=== PATIENT | female | born 1960 | race Caucasian/White ===

== ENCOUNTER 2022-02-25 11:33 | Observation (INO) | payer BC, OTHER, SELFPAY ==
--- OUTSIDE RECORDS SUMMARY | 2022-02-25 11:43 | XMS REPORT | Continuity of Care Document ---
:1960 Author Organization [facility] t Address [address] [place] [address] Care Team Providers Name Role Phone Ana Vera Primary Care Physician Johnny ARREDONDO, Sendvinod K.H. Attending Clinician JESSICA TURNERHEstelle Attending Clinician Unavailable Doctor Unassigned, [place] Attending Clinician Unavailable DR SHU NATH Attending Clinician Unavailable DR SHU NATH Admitting Clinician Unavailable Payers Payer Name Policy Type Policy Number Effective Date Expiration Date S ource Problems Condition Condition Condition Status Onset Resolution Last Treating Co mments Source Name Details Category Date Date Treatment Clinician Date No known No known Disease Unive rs active active ity of problems problems [facility] Allergies, Adverse Reactions, Alerts Allergy Allergy Status Severity Reaction(s) Onset Inactive Treating Comm ents Source Name Type Date Date Clinician NO KNOWN Drug Active Univers ALLERGIE Class ity of S [facility] Social History Social Habit Start Date Stop Date Quantity Comments Source Exposure to Not sure [facility] SARS-CoV-2 (event) [facility] Tobacco use and 2020-11-29 2020-11-29 Never used [facility] exposure 00:00:00 00:00:00 [facility] Sex Ass[birth year] [facility] 00:00:00 00:00:00 [facility] Smoking Status Start Date Stop Date Source Unknown if ever smoked [facility] Current every day smoker 2020-11-29 00:00:00 Uni versity [facility] Medications Ordered Filled Start Stop Current Ordering Indication Dosage Frequency Signature Comments Components Source Medication Medication Date Date Medication? Clinician (SIG) Name Name LISINOPRIL 2021-1 No 20MG TAB 0-22 00:00: 00 LISINOPRIL 2-1 No 20MG TAB 0-22 00:00: 00 APPLY 2022-0 No SPARINGLY 9-12 TO AFFECTED 00:00: AREA TWICE 00 A DAY APPLY 2022-0 No SPARINGLY 9-12 TO AFFECTED 00:00: AREA TWICE 00 A DAY LISINOPRIL 2-0 No 20 20MG TAB 8 00:00: 00 LISINOPRIL 2-0 No 20 20MG TAB 8 00:00: 00 LISINOPRIL 2-0 No 20 20MG TAB 11-27 00:00: 00 TAKE 10 ML 2022-0 No BY MOUTH 8-11 EVERY 4 TO 00:00: 6 HOURS 00 TAKE 10 ML 2022-0 No BY MOUTH 8-11 EVERY 4 TO 00:00: 6 HOURS 00 TAKE 10 ML 2022-0 No BY MOUTH 8-11 EVERY 4 TO 00:00: 6 HOURS 00 TAKE 10 ML 2022-0 No BY MOUTH 8-11 EVERY 4 TO 00:00: 6 HOURS 00 &lt 2022-0 No 7-11 00:00: 00 Dose 2022-0 No 750 Unknown 7-11 00:00: 00 &lt 2022-0 No 7-11 00:00: 00 Dose 2022-0 No 750 Unknown 7-11 00:00: 00 &lt 2022-0 No 7-11 00:00: 00 Dose 2022-0 No 750 Unknown 7-11 00:00: 00 &lt 2022-0 No 7-11 00:00: 00 Dose 2022-0 No 750 Unknown 7-11 00:00: 00 &lt 2022-0 No 20 7-05 00:00: 00 &lt 2022-0 No 20 7-05 00:00: 00 &lt 2022-0 No 20 7-05 00:00: 00 &lt 2022-0 No 20 7-05 00:00: 00 &lt 2022-0 No 6-29 00:00: 00 Dose 2022-0 No Unknown 6-29 00:00: 00 &lt 2022-0 No 6-29 00:00: 00 Dose 2022-0 No Unknown 6-29 00:00: 00 &lt 2022-0 No 6- 00:00: 00 Dose 2022-0 No Unknown 6- 00:00: 00 &lt 2022-0 No 6- 00:00: 00 Dose 2022-0 No Unknown 6 00:00: 00 &lt 2022-0 No 6- 00:00: 00 &lt 2022-0 No 6- 00:00: 00 Dose 2022-0 No Unknown 6- 00:00: 00 &lt 2022-0 No 6- 00:00: 00 Dose 2022-0 No Unknown 6- 00:00: 00 Dose 2022-0 No Unknown 6- 00:00: 00 &lt 2022-0 No 6- 00:00: 00 Dose 2022-0 No Unknown 6 00:00: 00 &lt 2022-0 No 6- 00:00: 00 &lt 2022-0 No 6-20 00:00: 00 &lt 2022-0 No 6-20 00:00: 00 &lt 2022-0 No 6-20 00:00: 00 &lt 2022-0 No 6-19 00:00: 00 &lt 2022-0 No 6-19 00:00: 00 &lt 2022-0 No 6-19 00:00: 00 &lt 2022-0 No 6-19 00:00: 00 &lt 2022-0 No 6-17 00:00: 00 TAKE 1 2022-0 No TABLET BY 6-17 MOUTH ONCE 00:00: DAILY 00 &lt 2022-0 No 6-17 00:00: 00 TAKE 1 2022-0 No TABLET BY 6-17 MOUTH 00:00: NEEDED 00 ALTERNATE EVERY 3 HOURS WITH TRAMADOL EVERY 6 HOURS FOR 10 DAYS TAKE 1 2022-0 No CAPSULE BY 6-17 MOUTH EVERY 00:00: 12 HOURS 00 FOR 14 DAYS &lt 2022-0 No 6-17 00:00: 00 &lt 2022-0 No 6-17 00:00: 00 &lt 2022-0 No 6-17 00:00: 00 TAKE 1 2022-0 No CAPSULE BY 6-17 MOUTH EVERY 00:00: 12 HOURS 00 FOR 14 DAYS Dose 2022-0 No Unknown 6-17 00:00: 00 TAKE 1 2022-0 No CAPSULE BY 6-17 MOUTH EVERY 00:00: 12 HOURS 00 FOR 14 DAYS Dose 2022-0 No Unknown 6-17 00:00: 00 &lt 2022-0 No 6-17 00:00: 00 &lt 2022-0 No 6-17 00:00: 00 &lt 2022-0 No 6-17 00:00: 00 TAKE 1 2-0 No TABLET BY 6-17 MOUTH ONCE 00:00: DAILY 00 &lt 2022-0 No 6-17 00:00: 00 TAKE 1 2-0 No TABLET BY 6-17 MOUTH 00:00: NEEDED 00 ALTERNATE EVERY 3 HOURS WITH TRAMADOL EVERY 6 HOURS FOR 10 DAYS TAKE 1 2-0 No CAPSULE BY 6-17 MOUTH EVERY 00:00: 12 HOURS 00 FOR 14 DAYS &lt 2022-0 No 6-17 00:00: 00 &lt 2022-0 No 6-17 00:00: 00 &lt 2022-0 No 6-17 00:00: 00 TAKE 1 2-0 No CAPSULE BY 6-17 MOUTH EVERY 00:00: 12 HOURS 00 FOR 14 DAYS Dose 2022-0 No Unknown 6-17 00:00: 00 TAKE 1 2-0 No CAPSULE BY 6-17 MOUTH EVERY 00:00: 12 HOURS 00 FOR 14 DAYS Dose 2022-0 No Unknown 6-17 00:00: 00 &lt 2022-0 No 6-17 00:00: 00 &lt 2022-0 No 6-17 00:00: 00 &lt 2022-0 No 6-17 00:00: 00 TAKE 1 2-0 No TABLET BY 6-17 MOUTH ONCE 00:00: DAILY 00 &lt 2022-0 No 6-17 00:00: 00 TAKE 1 2-0 No TABLET BY 6-17 MOUTH 00:00: NEEDED 00 ALTERNATE EVERY 3 HOURS WITH TRAMADOL EVERY 6 HOURS FOR 10 DAYS TAKE 1 2-0 No CAPSULE BY 6-17 MOUTH EVERY 00:00: 12 HOURS 00 FOR 14 DAYS &lt 2022-0 No 6-17 00:00: 00 &lt 2022-0 No 6-17 00:00: 00 &lt 2022-0 No 6-17 00:00: 00 TAKE 1 2-0 No CAPSULE BY 6-17 MOUTH EVERY 00:00: 12 HOURS 00 FOR 14 DAYS Dose 2022-0 No Unknown 6-17 00:00: 00 TAKE 1 2022-0 No CAPSULE BY 6-17 MOUTH EVERY 00:00: 12 HOURS 00 FOR 14 DAYS Dose 2022-0 No Unknown 6-17 00:00: 00 &lt 2022-0 No 6-17 00:00: 00 &lt 2022-0 No 6-17 00:00: 00 &lt 2022-0 No 6-17 00:00: 00 TAKE 1 2022-0 No TABLET BY 6-17 MOUTH ONCE 00:00: DAILY 00 &lt 2022-0 No 6-17 00:00: 00 TAKE 1 2022-0 No TABLET BY 6-17 MOUTH 00:00: NEEDED 00 ALTERNATE EVERY 3 HOURS WITH TRAMADOL EVERY 6 HOURS FOR 10 DAYS TAKE 1 2-0 No CAPSULE BY 6-17 MOUTH EVERY 00:00: 12 HOURS 00 FOR 14 DAYS &lt 2022-0 No 6-17 00:00: 00 &lt 2022-0 No 6-17 00:00: 00 &lt 2022-0 No 6-17 00:00: 00 TAKE 1 2022-0 No CAPSULE BY 6-17 MOUTH EVERY 00:00: 12 HOURS 00 FOR 14 DAYS Dose 2022-0 No Unknown 6-17 00:00: 00 TAKE 1 2-0 No CAPSULE BY 6-17 MOUTH EVERY 00:00: 12 HOURS 00 FOR 14 DAYS Dose 2022-0 No Unknown 6-17 00:00: 00 &lt 2022-0 No 6-17 00:00: 00 &lt 2022-0 No 6-17 00:00: 00 &lt 2022-0 No 6-03 00:00: 00 TAKE 1 2022-0 No TABLET BY 6-03 MOUTH EVERY 00:00: 8 HOURS 00 NEEDED &lt 2022-0 No 6-03 00:00: 00 &lt 2022-0 No 6-03 00:00: 00 &lt 2022-0 No 6-03 00:00: 00 TAKE 1 2022-0 No TABLET BY 6-03 MOUTH EVERY 00:00: 8 HOURS 00 NEEDED &lt 2022-0 No 6-03 00:00: 00 &lt 2022-0 No 6-03 00:00: 00 &lt 2022-0 No 6-03 00:00: 00 TAKE 1 2022-0 No TABLET BY 6-03 MOUTH EVERY 00:00: 8 HOURS 00 NEEDED &lt 2022-0 No 6-03 00:00: 00 &lt 2022-0 No 6-03 00:00: 00 &lt 2022-0 No 6-03 00:00: 00 TAKE 1 2022-0 No TABLET BY 6-03 MOUTH EVERY 00:00: 8 HOURS 00 NEEDED &lt 2022-0 No 6-03 00:00: 00 &lt 2022-0 No 6-03 00:00: 00 Dose 2022-0 No Unknown 6-02 00:00: 00 &lt 2022-0 No 6-02 00:00: 00 Dose 2022-0 No Unknown 6-02 00:00: 00 &lt 2022-0 No 6-02 00:00: 00 Dose 2022-0 No Unknown 6- 00:00: 00 &lt 2022-0 No 6-02 00:00: 00 Dose 2022-0 No Unknown 6- 00:00: 00 &lt 2022-0 No 6-02 00:00: 00 Dose 2022-0 No Unknown 6- 00:00: 00 Dose 2022-0 No Unknown 6- 00:00: 00 Dose 2022-0 No Unknown 6- 00:00: 00 Dose 2022-0 No Unknown 6- 00:00: 00 nicotine 14 2-0 No 1mg/24 mg/24 hr 5-30 hr daily 00:00: transdermal 00 patch lisinopril 2-0 No 1mg 20 mg 5-30 tablet 00:00: 00 Dose 2022-0 No Unknown 5-30 00:00: 00 Dose 2022-0 No Unknown 5-30 00:00: 00 Dose 2022-0 No Unknown 5-30 00:00: 00 Dose 2022-0 No Unknown 5-30 00:00: 00 Dose 2022-0 No Unknown 5-30 00:00: 00 Dose 2022-0 No Unknown 5-30 00:00: 00 Dose 2022-0 No Unknown 5-30 00:00: 00 Dose 2022-0 No Unknown 5-30 00:00: 00 Dose 2022-0 No Unknown 5-30 00:00: 00 Dose 2022-0 No Unknown 5-30 00:00: 00 nicotine 14 2-0 No 1mg/24 mg/24 hr 5-30 hr daily 00:00: transdermal 00 patch lisinopril 2022-0 No 1mg 20 mg 5-30 tablet 00:00: 00 Dose 2022-0 No Unknown 5-30 00:00: 00 Dose 2022-0 No Unknown 5-30 00:00: 00 Dose 2022-0 No Unknown 5-30 00:00: 00 Dose 2022-0 No Unknown 5-30 00:00: 00 Dose 2022-0 No Unknown 5-30 00:00: 00 Dose 2022-0 No Unknown 5-30 00:00: 00 Dose 2022-0 No Unknown 5-30 00:00: 00 nicotine 14 2-0 No 1mg/24 mg/24 hr 5-30 hr daily 00:00: transdermal 00 patch lisinopril 2-0 No 1mg 20 mg 5-30 tablet 00:00: 00 Dose 2022-0 No Unknown 5-30 00:00: 00 Dose 2022-0 No Unknown 5-30 00:00: 00 Dose 2022-0 No Unknown 5-30 00:00: 00 Dose 2022-0 No Unknown 5-30 00:00: 00 Dose 2-0 No Unknown 5-30 00:00: 00 Dose 2-0 No Unknown 5-30 00:00: 00 Dose 2-0 No Unknown 5-30 00:00: 00 Dose 2022-0 No Unknown 5-30 00:00: 00 Dose 2022-0 No Unknown 5-30 00:00: 00 Dose 2022-0 No Unknown 5-30 00:00: 00 Dose 2022-0 No Unknown 5-30 00:00: 00 Dose 2022-0 No Unknown 5-30 00:00: 00 Dose 2022-0 No Unknown 5-30 00:00: 00 nicotine 14 2-0 No 1mg/24 mg/24 hr 5-30 hr daily 00:00: transdermal 00 patch lisinopril 2022-0 No 1mg 20 mg 5-30 tablet 00:00: 00 Dose 2022-0 No Unknown 5-30 00:00: 00 Dose 2022-0 No Unknown 5-30 00:00: 00 Dose 2022-0 No Unknown 5-30 00:00: 00 Dose 2022-0 No Unknown 5-30 00:00: 00 Dose 2022-0 No Unknown 5-30 00:00: 00 Dose 2022-0 No Unknown 5-30 00:00: 00 Dose 2022-0 No Unknown 5-30 00:00: 00 Dose 2022-0 No Unknown 5- 00:00: 00 Dose 2022-0 No Unknown 5- 00:00: 00 Dose 2022-0 No Unknown 5- 00:00: 00 lisinopril 2022-0 No 1mg 20 mg 5-28 tablet 00:00: 00 Dose 2022-0 No Unknown 5- 00:00: 00 lisinopril 2022-0 No 1mg 20 mg 5-28 tablet 00:00: 00 Dose 2022-0 No Unknown 5- 00:00: 00 lisinopril 2022-0 No 1mg 20 mg 5-28 tablet 00:00: 00 Dose 2022-0 No Unknown 5- 00:00: 00 lisinopril 2022-0 No 1mg 20 mg 5-28 tablet 00:00: 00 Dose 2022-0 No Unknown 5- 00:00: 00 lisinopril 2022-0 No 1mg 20 mg 2-21 tablet 00:00: 00 cyclobenzap 2022-0 No 1mg rine 5 mg 2-21 tablet 00:00: 00 lisinopril 2022-0 No 1mg 20 mg 2-21 tablet 00:00: 00 cyclobenzap 2022-0 No 1mg rine 5 mg 2-21 tablet 00:00: 00 lisinopril 2022-0 No 1mg 20 mg 2-21 tablet 00:00: 00 cyclobenzap 2022-0 No 1mg rine 5 mg 2-21 tablet 00:00: 00 lisinopril 2022-0 No 1mg 20 mg 2-21 tablet 00:00: 00 cyclobenzap 2022-0 No 1mg rine 5 mg 2-21 tablet 00:00: 00 Dose 2022-0 No Unknown 1-24 00:00: 00 Dose 2022-0 No Unknown 1-24 00:00: 00 Dose 2022-0 No Unknown 1-24 00:00: 00 Dose 2022-0 No Unknown 1-24 00:00: 00 dell 2021-1 No 1% ne 1-22 acetonide 00:00: 0.1 % 00 topical cream lisinopril 1-1 No 1mg 20 mg 1-22 tablet 00:00: 00 triamcinolo 1-1 No 1% ne 1-22 acetonide 00:00: 0.1 % 00 topical cream lisinopril 1-1 No 1mg 20 mg 1-22 tablet 00:00: 00 triamcinolo 1-1 No 1% ne 1-22 acetonide 00:00: 0.1 % 00 topical cream lisinopril 1-1 No 1mg 20 mg 1-22 tablet 00:00: 00 triamcinolo 1-1 No 1% ne 1-22 acetonide 00:00: 0.1 % 00 topical cream lisinopril 1-1 No 1mg 20 mg 1-22 tablet 00:00: 00 lisinopril 1-1 No 1mg 20 mg 1-04 tablet 00:00: 00 lisinopril 1-1 No 1mg 20 mg 1-04 tablet 00:00: 00 lisinopril 1-1 No 1mg 20 mg 1-04 tablet 00:00: 00 lisinopril 1-1 No 1mg 20 mg 1-04 tablet 00:00: 00 lisinopril 2021-0 No 1mg 20 mg 9-30 tablet 00:00: 00 lisinopril 2021-0 No 1mg 20 mg 9-30 tablet 00:00: 00 lisinopril 2021-0 No 1mg 20 mg 9-30 tablet 00:00: 00 lisinopril 2021-0 No 1mg 20 mg 9-30 tablet 00:00: 00 lisinopril 2021-0 No 1mg 10 mg 9-03 tablet 00:00: 00 lisinopril 2021-0 No 1mg 5 mg tablet 12-07 00:00: 00 lisinopril 2021-0 No 1mg 10 mg 9-03 tablet 00:00: 00 lisinopril 2021-0 No 1mg 5 mg tablet 12-07 00:00: 00 lisinopril 2021-0 No 1mg 10 mg 9-03 tablet 00:00: 00 lisinopril 2021-0 No 1mg 5 mg tablet 12-07 00:00: 00 lisinopril 2021-0 No 1mg 10 mg 9-03 tablet 00:00: 00 lisinopril 1-0 No 1mg 5 mg tablet 12-07 00:00: 00 lisinopril 1-0 No 1mg 10 mg 9-03 tablet 00:00: 00 lisinopril 2020-0 No 1mg 5 mg tablet 12-07 00:00: 00 lisinopril 1-0 No 1mg 10 mg 9-03 tablet 00:00: 00 lisinopril 2020-0 No 1mg 5 mg tablet 12-07 00:00: 00 lisinopril 1-0 No 1mg 10 mg - tablet 00:00: 00 lisinopril 1-0 No 1mg 5 mg tablet 12-07 00:00: 00 lisinopril 1-0 No 1mg 10 mg - tablet 00:00: 00 lisinopril 2020-0 No 1mg 5 mg tablet 12-07 00:00: 00 lisinopriL 2020-0 Yes 10mg Take 10 mg U nivers 10 mg 8-26 by mouth ity of tablet 15:14: daily. [address] No known 2020-0 No Univers medications 8-26 ity of 15:14: [address] lisinopriL 2020-0 Yes 10mg Take 10 mg U nivers 10 mg 8-26 by mouth ity of tablet 15:14: daily. [address] Bromfed DM 2020-0 No 10mg/5 2 mg-30 7-13 mL mg-10 mg/5 00:00: mL oral 00 syrup Bromfed DM 2020-0 No 10mg/5 2 mg-30 7-13 mL mg-10 mg/5 00:00: mL oral 00 syrup Bromfed DM 2020-0 No 10mg/5 2 mg-30 7-13 mL mg-10 mg/5 00:00: mL oral 00 syrup Bromfed DM 2020-0 No 10mg/5 2 mg-30 7-13 mL mg-10 mg/5 00:00: mL oral 00 syrup methocarbam 1-0 No 1mg ol 750 mg 6-05 tablet 00:00: 00 methocarbam 1-0 No 1mg ol 750 mg 6-05 tablet 00:00: 00 ketorolac 2021-0 No 1mg 10 mg 6-05 tablet 00:00: 00 ketorolac 2021-0 No 1mg 10 mg 6-05 tablet 00:00: 00 methocarbam 2021-0 No 1mg ol 750 mg 6-05 tablet 00:00: 00 ketorolac 2021-0 No 1mg 10 mg 6-05 tablet 00:00: 00 methocarbam 2021-0 No 1mg ol 750 mg 6-05 tablet 00:00: 00 ketorolac 2021-0 No 1mg 10 mg 6-05 tablet 00:00: 00 lisinopril 2021-0 No 1mg 10 mg 6-04 tablet 00:00: 00 lisinopril 2021-0 No 1mg 10 mg 6-04 tablet 00:00: 00 lisinopril 2021-0 No 1mg 10 mg 6-04 tablet 00:00: 00 lisinopril 2021-0 No 1mg 10 mg 6-04 tablet 00:00: 00 Flagyl 500 1-0 No 1mg mg tablet 5- 00:00: 00 Flagyl 500 1-0 No 1mg mg tablet 5- 00:00: 00 Flagyl 500 1-0 No 1mg mg tablet 5- 00:00: 00 Flagyl 500 2021-0 No 1mg mg tablet 5- 00:00: 00 clotrimazol 1-0 No 1% e 1 % 1-29 topical 00:00: cream 00 hydrocortis 1-0 No 1% one 1 % 1-29 topical 00:00: cream 00 lisinopril 2021-0 No 1mg 10 mg 1-29 tablet 00:00: 00 clotrimazol 1-0 No 1% e 1 % 1-29 topical 00:00: cream 00 hydrocortis 1-0 No 1% one 1 % 1-29 topical 00:00: cream 00 lisinopril 2021-0 No 1mg 10 mg 1-29 tablet 00:00: 00 clotrimazol 2021-0 No 1% e 1 % 1-29 topical 00:00: cream 00 hydrocortis 1-0 No 1% one 1 % 1-29 topical 00:00: cream 00 lisinopril 2021-0 No 1mg 10 mg 1-29 tablet 00:00: 00 clotrimazol 2021-0 No 1% e 1 % 1-29 topical 00:00: cream 00 hydrocortis 1-0 No 1% one 1 % -29 topical 00:00: cream 00 lisinopril 2020-0 No 1mg 10 mg 1-29 tablet 00:00: 00 lisinopril 2019-1 No 1mg 10 mg 2-29 tablet 00:00: 00 lisinopril 2019-1 No 1mg 10 mg 2-29 tablet 00:00: 00 lisinopril 2019-1 No 1mg 10 mg 2-29 tablet 00:00: 00 lisinopril 2019-1 No 1mg 10 mg 2-29 tablet 00:00: 00 metronidazo 2020-1 No 1mg le 500 mg 2-03 tablet 00:00: 00 metronidazo 2019-1 No 1mg le 500 mg 2-03 tablet 00:00: 00 metronidazo 2020-1 No 1mg le 500 mg 2-03 tablet 00:00: 00 metronidazo 2019-1 No 1mg le 500 mg 2-03 tablet 00:00: 00 naproxen 2020-1 No 1mg 500 mg 0-27 tablet 00:00: 00 naproxen 2020-1 No 1mg 500 mg 0-27 tablet 00:00: 00 naproxen 2020-1 No 1mg 500 mg 0-27 tablet 00:00: 00 naproxen 2020-1 No 1mg 500 mg 0-27 tablet 00:00: 00 lisinopril 2020-0 No 1mg 10 mg 8-10 tablet 00:00: 00 Robaxin-750 2020-0 No 1mg 750 mg 8-10 tablet 00:00: 00 lisinopril 2020-0 No 1mg 10 mg 8-10 tablet 00:00: 00 Robaxin-750 2020-0 No 1mg 750 mg 8-10 tablet 00:00: 00 lisinopril 2020-0 No 1mg 10 mg 8-10 tablet 00:00: 00 Robaxin-750 2020-0 No 1mg 750 mg 8-10 tablet 00:00: 00 lisinopril 2020-0 No 1mg 10 mg 8-10 tablet 00:00: 00 Robaxin-750 2020-0 No 1mg 750 mg 8-10 tablet 00:00: 00 lisinopril 2020-0 No 1mg 10 mg 5-18 tablet 00:00: 00 lisinopril 2020-0 No 1mg 10 mg 5-18 tablet 00:00: 00 lisinopril 2020-0 No 1mg 10 mg 5-18 tablet 00:00: 00 lisinopril 2020-0 No 1mg 10 mg 5-18 tablet 00:00: 00 lisinopril 2020-0 No 1mg 10 mg 2-13 tablet 00:00: 00 lisinopril 2020-0 No 1mg 10 mg 2-13 tablet 00:00: 00 lisinopril 2020-0 No 1mg 10 mg 2-13 tablet 00:00: 00 lisinopril 2020-0 No 1mg 10 mg 2-13 tablet 00:00: 00 loratadine 2020-0 No 1mg 10 mg 1-11 tablet 00:00: 00 Bromfed DM 2020-0 No 10mg/5 2 mg-30 1-11 mL mg-10 mg/5 00:00: mL oral 00 syrup loratadine 2020-0 No 1mg 10 mg 1-11 tablet 00:00: 00 Bromfed DM 2020-0 No 10mg/5 2 mg-30 1-11 mL mg-10 mg/5 00:00: mL oral 00 syrup loratadine 2020-0 No 1mg 10 mg 1-11 tablet 00:00: 00 Bromfed DM 2020-0 No 10mg/5 2 mg-30 1-11 mL mg-10 mg/5 00:00: mL oral 00 syrup loratadine 2020-0 No 1mg 10 mg 1-11 tablet 00:00: 00 Bromfed DM 2020-0 No 10mg/5 2 mg-30 1-11 mL mg-10 mg/5 00:00: mL oral 00 syrup lisinopril 2019-0 No 1mg 10 mg 8-13 tablet 00:00: 00 lisinopril 2019-0 No 1mg 10 mg 8-13 tablet 00:00: 00 lisinopril 2019-0 No 1mg 10 mg 8-13 tablet 00:00: 00 lisinopril 2019-0 No 1mg 10 mg 8-13 tablet 00:00: 00 lisinopril 2019-0 No 1mg 10 mg 6-19 tablet 00:00: 00 lisinopril 2019-0 No 1mg 10 mg 6-19 tablet 00:00: 00 lisinopril 2019-0 No 1mg 10 mg 6-19 tablet 00:00: 00 lisinopril 2019-0 No 1mg 10 mg 6-19 tablet 00:00: 00 lisinopril 2019-0 No 1mg 10 mg 2-07 tablet 00:00: 00 lisinopril 2019-0 No 1mg 10 mg 2-07 tablet 00:00: 00 lisinopril 2019-0 No 1mg 10 mg 2-07 tablet 00:00: 00 lisinopril 2019-0 No 1mg 10 mg 2-07 tablet 00:00: 00 lisinopril 2019-0 No 1mg 10 mg 2-07 tablet 00:00: 00 lisinopril 2019-0 No 1mg 10 mg 2-07 tablet 00:00: 00 lisinopril 2019-0 No 1mg 10 mg 2-07 tablet 00:00: 00 lisinopril 2019-0 No 1mg 10 mg 2-07 tablet 00:00: 00 lisinopril 2019-0 No 1mg 10 mg 2-07 tablet 00:00: 00 lisinopril 2019-0 No 1mg 10 mg 2-07 tablet 00:00: 00 lisinopril 2019-0 No 1mg 10 mg 2-07 tablet 00:00: 00 lisinopril 2019-0 No 1mg 10 mg 2-07 tablet 00:00: 00 lisinopril 2019-0 No 1mg 10 mg 1-28 tablet 00:00: 00 lisinopril 2019-0 No 1mg 10 mg 1-28 tablet 00:00: 00 lisinopril 2019-0 No 1mg 10 mg 1-28 tablet 00:00: 00 lisinopril 2019-0 No 1mg 10 mg 1-28 tablet 00:00: 00 lisinopril 2018-0 No 1mg 10 mg 6-01 tablet 00:00: 00 lisinopril 2018-0 No 1mg 10 mg 6-01 tablet 00:00: 00 lisinopril 2018-0 No 1mg 10 mg 6-01 tablet 00:00: 00 lisinopril 2018-0 No 1mg 10 mg 6-01 tablet 00:00: 00 Robaxin 500 2018-0 No 1mg mg tablet -08 00:00: 00 Robaxin 500 2018-0 No 1mg mg tablet - 00:00: 00 Robaxin 500 2018-0 No 1mg mg tablet 5- 00:00: 00 Robaxin 500 2018-0 No 1mg mg tablet 5- 00:00: 00 prednisone 2017-1 No 1mg 20 mg 1-06 tablet 00:00: 00 prednisone 2017-1 No 1mg 20 mg 1-06 tablet 00:00: 00 prednisone 2017-1 No 1mg 20 mg 1-06 tablet 00:00: 00 prednisone 2017-1 No 1mg 20 mg 1-06 tablet 00:00: 00 prednisone 2017-1 No 1mg 20 mg 1-06 tablet 00:00: 00 prednisone 2017-1 No 1mg 20 mg 1-06 tablet 00:00: 00 prednisone 2017-1 No 1mg 20 mg 1-06 tablet 00:00: 00 prednisone 2017-1 No 1mg 20 mg 1-06 tablet 00:00: 00 lisinopril 2017-0 No 1mg 10 mg 9-27 tablet 00:00: 00 lisinopril 2017-0 No 1mg 10 mg 9-27 tablet 00:00: 00 lisinopril 2017-0 No 1mg 10 mg 9-27 tablet 00:00: 00 lisinopril 2017-0 No 1mg 10 mg 9-27 tablet 00:00: 00 lisinopril 2017-0 No 1mg 10 mg 3-07 tablet 00:00: 00 lisinopril 2017-0 No 1mg 10 mg 3-07 tablet 00:00: 00 lisinopril 2017-0 No 1mg 10 mg 3-07 tablet 00:00: 00 lisinopril 2017-0 No 1mg 10 mg 3-07 tablet 00:00: 00 lisinopril 2017-0 No 1mg 10 mg 3-02 tablet 00:00: 00 lisinopril 2017-0 No 1mg 10 mg 3-02 tablet 00:00: 00 lisinopril 2017-0 No 1mg 10 mg 3-02 tablet 00:00: 00 lisinopril 2017-0 No 1mg 10 mg 3-02 tablet 00:00: 00 lisinopril 2017-0 No 1mg 10 mg 1-27 tablet 00:00: 00 lisinopril 2017-0 No 1mg 10 mg 1-27 tablet 00:00: 00 lisinopril 2017-0 No 1mg 10 mg 1-27 tablet 00:00: 00 lisinopril 2017-0 No 1mg 10 mg 1-27 tablet 00:00: 00 Motrin 800 2014-0 No 1mg mg tablet 09-11 00:00: 00 Motrin 800 0 No 1mg mg tablet 09-11 00:00: 00 Motrin 800 2014-0 No 1mg mg tablet 09-11 00:00: 00 Motrin 800 0 No 1mg mg tablet 09-11 00:00: 00 Immunizations Ordered Immunization Filled Immunization Date Status Commen ts Source Name Name Heidy BLACK-19 2020-06-08 Completed Vaccine 00:00:00 Heidy COVID-19 2020-06-08 Completed Vaccine 00:00:00 Heidy COVID-19 2020-06-08 Completed Vaccine 00:00:00 Heidy RASMUSSENID-19 2020-06-08 Completed Vaccine 00:00:00 Heidy COVID-19 2020-04-14 Completed Vaccine 00:00:00 Heidy COVID-19 2020-04-14 Completed Vaccine 00:00:00 Heidy COVID-19 2020-04-14 Completed Vaccine 00:00:00 Heidy COVID-19 2020-04-14 Completed Vaccine 00:00:00 Vital Signs Vital Name Observation Time Observation Value Comments Source Systolic blood 2020-11-29 20:15:00 137 mm[Hg] Univer sity of pressure [facility] Diastolic blood 2020-11-29 20:15:00 91 mm[Hg] Unive rsity of [facility] Heart rate 2020-11-29 20:15:00 74 /min [facility] Respiratory rate 2020-11-29 20:11:00 21 /min [facility] 2020-11-29 20:11:00 170.2 cm [facility] Body weight 2020-11-29 20:11:00 69.037 kg [facility] BMI 2020-11-29 20:11:00 23.84 kg/m2 [facility] Oxygen saturation in 2020-11-29 20:11:00 100 /min [facility] blood by [facility] oximetry Branch BP Systolic 2022-02-06 16:37:00 101 mm[Hg] BP Diastolic 2022-02-06 16:37:00 69 mm[Hg] Weight Measured 2022-02-06 16:37:00 151.40 pounds Height Measured 2022-02-06 16:37:00 66.00 inches Body Temperature 2022-02-06 16:37:00 98.80 degrees Heart Rate 2022-02-06 16:37:00 80.00 /min Respiratory Rate 2022-02-06 16:37:00 18.00 /min BP Systolic 2022-01-25 14:24:00 113 mm[Hg] BP Diastolic 2022-01-25 14:24:00 77 mm[Hg] Weight Measured 2022-01-25 14:24:00 151.00 pounds Height Measured 2022-01-25 14:24:00 66.00 inches Body Temperature 2022-01-25 14:24:00 98.30 degrees Heart Rate 2022-01-25 14:24:00 82.00 /min Respiratory Rate 2022-01-25 14:24:00 20.00 /min BP Systolic 2021-12-12 15:34:00 128 mm[Hg] BP Diastolic 2021-12-12 15:34:00 85 mm[Hg] Weight Measured 2021-12-12 15:34:00 154.60 pounds Height Measured 2021-12-12 15:34:00 66.00 inches Body Temperature 2021-12-12 15:34:00 98.10 degrees Heart Rate 2021-12-12 15:34:00 87.00 /min Respiratory Rate 2021-12-12 15:34:00 18.00 /min BP Systolic 2021-11-22 15:00:00 109 mm[Hg] BP Diastolic 2021-11-22 15:00:00 72 mm[Hg] Weight Measured 2021-11-22 15:00:00 154.60 pounds Height Measured 2021-11-22 15:00:00 66.00 inches Body Temperature 2021-11-22 15:00:00 98.30 degrees Heart Rate 2021-11-22 15:00:00 85.00 /min Respiratory Rate 2021-11-22 15:00:00 16.00 /min BP Systolic 2021-09-20 16:37:00 150 mm[Hg] BP Diastolic 2021-09-20 16:37:00 85 mm[Hg] Weight Measured 2021-09-20 16:37:00 153.60 pounds Height Measured 2021-09-20 16:37:00 66.00 inches Body Temperature 2021-09-20 16:37:00 98.10 degrees Heart Rate 2021-09-20 16:37:00 99.00 /min Respiratory Rate 2021-09-20 16:37:00 18.00 /min BP Systolic 2021-09-02 10:02:00 116 mm[Hg] BP Diastolic 2021-09-02 10:02:00 81 mm[Hg] Weight Measured 2021-09-02 10:02:00 151.80 pounds Height Measured 2021-09-02 10:02:00 66.00 inches Body Temperature 2021-09-02 10:02:00 98.40 degrees Heart Rate 2021-09-02 10:02:00 100.00 /min Respiratory Rate 2021-09-02 10:02:00 BP Systolic 2021-05-27 14:39:00 152 mm[Hg] BP Diastolic 2021-05-27 14:39:00 63 mm[Hg] Weight Measured 2021-05-27 14:39:00 154.20 pounds Height Measured 2021-05-27 14:39:00 66.00 inches Body Temperature 2021-05-27 14:39:00 98.40 degrees Heart Rate 2021-05-27 14:39:00 99.00 /min Respiratory Rate 2021-05-27 14:39:00 BP Systolic 2021-04-13 10:09:00 114 mm[Hg] BP Diastolic 2021-04-13 10:09:00 78 mm[Hg] Weight Measured 2021-04-13 10:09:00 153.80 pounds Height Measured 2021-04-13 10:09:00 66.00 inches Body Temperature 2021-04-13 10:09:00 98.30 degrees Heart Rate 2021-04-13 10:09:00 97.00 /min Respiratory Rate 2021-04-13 10:09:00 Body Temperature 2021-02-25 10:56:00 98.20 degrees Heart Rate 2021-02-25 10:56:00 90.00 /min Respiratory Rate 2021-02-25 10:56:00 BP Systolic 2021-02-25 10:56:00 128 mm[Hg] BP Diastolic 2021-02-25 10:56:00 81 mm[Hg] Weight Measured 2021-02-25 10:56:00 151.00 pounds Height Measured 2021-02-25 10:56:00 66.00 inches BP Systolic 2021-01-03 15:41:00 151 mm[Hg] BP Diastolic 2021-01-03 15:41:00 88 mm[Hg] Weight Measured 2021-01-03 15:41:00 154.20 pounds Height Measured 2021-01-03 15:41:00 66.00 inches Body Temperature 2021-01-03 15:41:00 98.30 degrees Heart Rate 2021-01-03 15:41:00 77.00 /min Respiratory Rate 2021-01-03 15:41:00 BP Systolic 2020-12-07 15:52:00 131 mm[Hg] BP Diastolic 2020-12-07 15:52:00 86 mm[Hg] Weight Measured 2020-12-07 15:52:00 153.20 pounds Height Measured 2020-12-07 15:52:00 66.00 inches Body Temperature 2020-12-07 15:52:00 97.40 degrees Heart Rate 2020-12-07 15:52:00 80.00 /min Respiratory Rate 2020-12-07 15:52:00 16.00 /min BP Systolic 2020-10-12 15:10:00 118 mm[Hg] BP Diastolic 2020-10-12 15:10:00 80 mm[Hg] Weight Measured 2020-10-12 15:10:00 150.20 pounds Height Measured 2020-10-12 15:10:00 66.00 inches Body Temperature 2020-10-12 15:10:00 98.00 degrees Heart Rate 2020-10-12 15:10:00 96.00 /min Respiratory Rate 2020-10-12 15:10:00 17.00 /min BP Systolic 2020-09-08 09:11:00 138 mm[Hg] BP Diastolic 2020-09-08 09:11:00 78 mm[Hg] Weight Measured 2020-09-08 09:11:00 148.00 pounds Height Measured 2020-09-08 09:11:00 66.00 inches Body Temperature 2020-09-08 09:11:00 98.00 degrees Heart Rate 2020-09-08 09:11:00 100.00 /min Respiratory Rate 2020-09-08 09:11:00 18.00 /min Procedures Procedure Date / Time Performed Performing Clinician Sourc e EKG-12 LEAD 2020-11-29 20:37:04 Jessica Turner [facility] SCANNED LAB RESULTS 2020-09-12 05:01:00 Doctor Unassigned, No Un [facility] [address] Colposcopy 2020-02-07 00:00:00 Cervix Bx Cervix endocrv Curtg Plan of Care Planned Activity Planned Date Details Comments Source Goal Plan of Care Note [code = 52870-4] Goal Plan of Care Note [code = 86477-8] Goal Plan of Care Note [code = 19568-2] Goal Plan of Care Note [code = 30046-4] Goal Plan of Care Note [code = 56350-0] Goal Plan of Care Note [code = 74838-7] Goal Plan of Care Note [code = 01879-2] Goal Plan of Care Note [code = 79701-1] Goal Plan of Care Note [code = 72121-0] Goal Plan of Care Note [code = 06300-8] Goal Plan of Care Note [code = 72494-1] Goal Plan of Care Note [code = 57827-2] Goal Plan of Care Note [code = 61131-3] Goal Plan of Care Note [code = 96111-8] Goal Plan of Care Note [code = 25250-8] Goal Plan of Care Note [code = 82685-9] Goal Plan of Care Note [code = 38012-3] Goal Plan of Care Note [code = 63738-4] Goal Plan of Care Note [code = 91584-6] Goal Plan of Care Note [code = 12754-1] Goal Plan of Care Note [code = 58927-2] Goal Plan of Care Note [code = 31224-7] Goal Plan of Care Note [code = 03724-2] Goal Plan of Care Note [code = 26145-7] Goal Plan of Care Note [code = 26812-8] Goal Plan of Care Note [code = 08639-6] Goal Plan of Care Note [code = 88452-2] Goal Plan of Care Note [code = 57370-0] Goal Plan of Care Note [code = 55831-7] Goal Plan of Care Note [code = 57521-5] Goal Plan of Care Note [code = 36269-2] Goal Plan of Care Note [code = 76919-2] Goal Plan of Care Note [code = 75937-4] Goal Plan of Care Note [code = 17111-0] Goal Plan of Care Note [code = 61633-5] Goal Plan of Care Note [code = 03807-8] Goal Plan of Care Note [code = 65408-8] Goal Plan of Care Note [code = 11993-0] Goal Plan of Care Note [code = 92779-0] Goal Plan of Care Note [code = 67142-8] Goal Plan of Care Note [code = 58708-9] Goal Plan of Care Note [code = 20898-8] Goal Plan of Care Note [code = 10356-6] Goal Plan of Care Note [code = 25874-5] Goal Plan of Care Note [code = 67078-0] Goal Plan of Care Note [code = 25673-0] Goal Plan of Care Note [code = 40636-9] Goal Plan of Care Note [code = 78618-7] Goal Plan of Care Note [code = 96389-1] Goal Plan of Care Note [code = 50581-7] Goal Plan of Care Note [code = 00224-6] Goal Plan of Care Note [code = 50343-2] Goal Plan of Care Note [code = 76787-5] Goal Plan of Care Note [code = 45097-6] Goal Plan of Care Note [code = 58392-1] Goal Plan of Care Note [code = 05725-9] Goal Plan of Care Note [code = 51866-5] Goal Plan of Care Note [code = 10120-5] Goal Plan of Care Note [code = 29874-8] Goal Plan of Care Note [code = 08372-2] Goal Plan of Care Note [code = 90424-1] Goal Plan of Care Note [code = 87834-1] Goal Plan of Care Note [code = 79112-3] Goal Plan of Care Note [code = 24501-2] Goal Plan of Care Note [code = 19932-9] Goal Plan of Care Note [code = 21790-7] Goal Plan of Care Note [code = 37708-3] Goal Plan of Care Note [code = 16217-7] Goal Plan of Care Note [code = 06668-4] Goal Plan of Care Note [code = 87317-9] Goal Plan of Care Note [code = 88856-1] Goal Plan of Care Note [code = 76785-2] Goal Plan of Care Note [code = 74633-8] Goal Plan of Care Note [code = 34932-1] Goal Plan of Care Note [code = 82913-7] Goal Plan of Care Note [code = 72526-4] Goal Plan of Care Note [code = 01556-5] Goal Plan of Care Note [code = 30474-7] Goal Plan of Care Note [code = 67835-6] Goal Plan of Care Note [code = 25605-5] Goal Plan of Care Note [code = 85903-1] Goal Plan of Care Note [code = 36518-7] Goal Plan of Care Note [code = 01323-2] Goal Plan of Care Note [code = 04643-2] Goal Plan of Care Note [code = 77154-4] Goal Plan of Care Note [code = 08499-3] Goal Plan of Care Note [code = 21927-3] Goal Plan of Care Note [code = 16747-9] Goal Plan of Care Note [code = 84872-5] Goal Plan of Care Note [code = 19164-5] Goal Plan of Care Note [code = 39072-5] Goal Plan of Care Note [code = 70843-6] Goal Plan of Care Note [code = 31070-8] Goal Plan of Care Note [code = 54737-0] Goal Plan of Care Note [code = 04877-7] Goal Plan of Care Note [code = 62041-8] Goal Plan of Care Note [code = 27214-2] Goal Plan of Care Note [code = 75309-4] Goal Plan of Care Note [code = 30576-6] Goal Plan of Care Note [code = 64121-6] Goal Plan of Care Note [code = 25475-3] Goal Plan of Care Note [code = 94635-6] Goal Plan of Care Note [code = 17370-6] Goal Plan of Care Note [code = 76137-1] Goal Plan of Care Note [code = 54401-0] Goal Plan of Care Note [code = 77940-9] Goal Plan of Care Note [code = 52933-9] Goal Plan of Care Note [code = 39439-4] Goal Plan of Care Note [code = 31044-8] Goal Plan of Care Note [code = 98343-1] Goal Plan of Care Note [code = 01828-0] Goal Plan of Care Note [code = 28411-0] Goal Plan of Care Note [code = 42536-5] Goal Plan of Care Note [code = 71797-1] Goal Plan of Care Note [code = 34186-3] Goal Plan of Care Note [code = 71919-7] Goal Plan of Care Note [code = 85244-0] Goal Plan of Care Note [code = 76606-4] Goal Plan of Care Note [code = 49254-4] Goal Plan of Care Note [code = 09759-5] Goal Plan of Care Note [code = 46779-9] Goal Plan of Care Note [code = 13401-7] Goal Plan of Care Note [code = 69879-1] Goal Plan of Care Note [code = 55630-4] Goal Plan of Care Note [code = 45108-4] Goal Plan of Care Note [code = 24550-9] Goal Plan of Care Note [code = 94337-2] Goal Plan of Care Note [code = 60418-8] Goal Plan of Care Note [code = 66252-2] Goal Plan of Care Note [code = 63853-7] Goal Plan of Care Note [code = 18856-9] Goal Plan of Care Note [code = 21808-5] Goal Plan of Care Note [code = 32709-1] Goal Plan of Care Note [code = 17329-7] Goal Plan of Care Note [code = 10737-0] Goal Plan of Care Note [code = 40971-7] Goal Plan of Care Note [code = 90749-5] Goal Plan of Care Note [code = 17775-1] Goal Plan of Care Note [code = 58634-9] Goal Plan of Care Note [code = 12390-6] Goal Plan of Care Note [code = 71016-0] Goal Plan of Care Note [code = 40176-1] Goal Plan of Care Note [code = 77349-4] Goal Plan of Care Note [code = 18877-6] Goal Plan of Care Note [code = 45232-8] Goal Plan of Care Note [code = 95146-2] Goal Plan of Care Note [code = 80446-9] Goal Plan of Care Note [code = 68338-3] Goal Plan of Care Note [code = 01324-3] Goal Plan of Care Note [code = 66563-9] Goal Plan of Care Note [code = 56987-0] Goal Plan of Care Note [code = 17439-4] Goal Plan of Care Note [code = 53389-1] Goal Plan of Care Note [code = 34652-9] Goal Plan of Care Note [code = 62044-3] Goal Plan of Care Note [code = 91752-6] Goal Plan of Care Note [code = 61318-0] Goal Plan of Care Note [code = 94859-3] Goal Plan of Care Note [code = 04902-6] Goal Plan of Care Note [code = 44044-9] Goal Plan of Care Note [code = 01414-5] Goal Plan of Care Note [code = 63205-1] Goal Plan of Care Note [code = 58417-4] Goal Plan of Care Note [code = 36965-5] Goal Plan of Care Note [code = 32605-2] Goal Plan of Care Note [code = 85510-4] Goal Plan of Care Note [code = 28953-6] Goal Plan of Care Note [code = 47903-5] Goal Plan of Care Note [code = 05763-0] Goal Plan of Care Note [code = 47411-8] Goal Plan of Care Note [code = 84215-9] Goal Plan of Care Note [code = 30962-4] Goal Plan of Care Note [code = 16157-8] Goal Plan of Care Note [code = 75004-5] Goal Plan of Care Note [code = 85518-9] Goal Plan of Care Note [code = 24093-6] Goal Plan of Care Note [code = 12893-9] Goal Plan of Care Note [code = 25726-4] Goal Plan of Care Note [code = 88325-2] Goal Plan of Care Note [code = 32670-8] Goal Plan of Care Note [code = 63935-9] Goal Plan of Care Note [code = 12930-0] Goal Plan of Care Note [code = 68659-8] Goal Plan of Care Note [code = 70787-6] Goal Plan of Care Note [code = 28094-8] Goal Plan of Care Note [code = 87724-6] Goal Plan of Care Note [code = 02428-5] Goal Plan of Care Note [code = 36183-2] Goal Plan of Care Note [code = 93936-9] Goal Plan of Care Note [code = 10429-2] Goal Plan of Care Note [code = 62245-3] Goal Plan of Care Note [code = 58342-7] Goal Plan of Care Note [code = 03537-2] Goal Plan of Care Note [code = 46958-8] Goal Plan of Care Note [code = 13051-6] Goal Plan of Care Note [code = 79864-4] Goal Plan of Care Note [code = 87323-3] Goal Plan of Care Note [code = 91061-4] Goal Plan of Care Note [code = 85662-1] Goal Plan of Care Note [code = 85891-8] Goal Plan of Care Note [code = 23459-5] Goal Plan of Care Note [code = 50808-8] Goal Plan of Care Note [code = 59931-1] Goal Plan of Care Note [code = 66224-4] Goal Plan of Care Note [code = 59051-9] Encounters Start End Encounter Admission Attending Care Care Encounter Source Date/Time Date/Time Type Type Clinicians Facility Department ID 2022-02-06 2022-02-06 Outpatient IVY HAYNES 70158-5 022 Cb 16:22:23 16:22:23 1103 F Papito 2022-02-06 2022-02-06 Outpatient ph06cpp9- [id number] 45jqe8-7 00:00:00 00:00:00 Visit 9dce-4bbd dce-4bbd-9 -909f-544 09f-66399z 54un8685w t2287b 2022-01-25 2022-01-25 Outpatient [facility] 14442-5 022 Cb 14:15:30 14:15:30 1022 F Papito 2022-01-25 2022-01-25 Outpatient [id number]- [id number] 855caa-c 00:00:00 00:00:00 Visit g799-39c9 645-44e8-a -g0x8-317 9r5-2329bv 8ba8y098f 5w896b 2021-12-12 2021-12-12 Outpatient [id number]- [id number] 6n8185-g 00:00:00 00:00:00 Visit i1v8-5p7s 5d2-8n8o-g -i168-630 960-4155ad 4fd6p5851 5w8181 2021-11-22 2021-11-22 Outpatient [id number]- [id number] [id number] ww7488-5 00:00:00 00:00:00 Visit 7902-472a 902-472a-a -h472-854 676-015ae2 eb6i72723 z14379 2021-01-02 2021-01-02 [facility] [id number] [facility] 00:00:00 00:00:00 Jessica Mancuso 350.1.13.10 ity [facility] [place] [phone] [facility] 059 [facility] 2020-12-27 2020-12-27 [facility] 1.2.840.114 [id number] [employer] 15:49:57 23:59:00 Encounter Jessica Mancuso 350.1.13.10 ity [facility] [place] [phone] [facility] 843 [facility] 2020-12-27 2020-12-27 Outpatient R JOHNNY [facility] [id number] [employer] 16:00:00 16:00:00 SENDVINOD flowers [facility] 2020-11-29 2020-11-29 Office [facility] 1.2.840.114 [id number] [employer] 14:57:55 15:56:07 Visit Jessica GrabielEstelleJacobEstelle Mancuso 350.1.13.10 ity [place] [phone] Fl dical formerly [facility] 059 [facility] 2020-11-29 2020-11-29 Outpatient Rosa TURNER, [facility] [id number] [facility] 15:00:00 15:00:00 SENDIL ity of [facility] 2020-11-29 2020-11-29 Orders Doctor MANN [id number] [id number] [facility] 00:00:00 00:00:00 Only Unassigned, TEENA 350.1.13.10 ity of [facility] 4.2.7.2.686 Emmanuel as [phone] [address] 2020-11-29 2020-11-29 Orders Doctor MANN 1.2.840.114 [id number] [facility] 00:00:00 00:00:00 Only Unassigned, TEENA 350.1.13.10 ity of [facility] 4.2.7.2.686 Emmanuel as [phone] [address] 2020-09-12 2020-09-12 Orders Doctor MANN 1.2.840.114 [id number] [facility] 00:00:00 00:00:00 Only Unassigned, TEENA 350.1.13.10 ity of [facility] 4.2.7.2.686 Emmanuel as [phone] [address] 2018-09-10 2018-09-10 Outpatient Cydney [facility] [id number] 04:51:00 07:45:00 [facility] 2018-06-11 2018-06-11 [facility] [id number] 04:39:00 07:15:00 [facility] Results Test Description Test Time Test Comments Results Result Comments Source PATHOLOGIST SMEAR REVIEW 2021-09-16 00:00:00 Test Item Value Reference Range Interpretation Comme nts DIAGNOSIS: (test code = 8200) (NOTE) MICROSCOPIC DESCRIPTION: (test code = 8210) (NOTE) PATHOLOGIST: (test code = 8250) (NOTE) CPT: (test code = 8400) 09611 WBC (test code = 1001) 10.1 K/UL RBC (test code = 1002) 4.36 M/UL HEMOGLOBIN (test code = 1003) 13.2 G/DL HEMATOCRIT (test code = 1004) 40.1 % MCV (test code = 1005) 92.0 fL MCH (test code = 1006) 30.3 PG MCHC (test code = 1007) 32.9 G/DL RDW (test code = 1038) 12.5 % NEUTROPHILS (test code = 1008) 70.1 % LYMPHOCYTES (test code = 1010) 21.5 % MONOCYTES (test code = 1011) 6.4 % EOSINOPHILS (test code = 1012) 1.1 % BASOPHILS (test code = 1013) 0.4 % IMMATURE GRANULOCYTES (test code = 1036) 0.5 % NUCLEATED RBCS (test code = 1065) 0.0 /100WBC'S PLATELET COUNT (test code = 1015) 328 K/UL ABSOLUTE NEUTROPHILS (test code = 1066) 7.05 K/UL ABSOLUTE LYMPHOCYTES (test code = 1067) 2.16 K/UL ABSOLUTE MONOCYTES (test code = 1068) 0.64 K/UL ABSOLUTE EOSINOPHILS (test code = 1040) 0.11 K/UL ABSOLUTE BASOPHILS (test code = 1069) 0.04 K/UL ABS IMMATURE GRANULOCYTES (test code = 1020) 0.05 K/UL ABS NUCLEATED RBCS (test code = 21269) 0.00 K/UL COMMENTS (test code = 1016) (NOTE) PATHOLOGIST SMEAR [id number] 00:00:00 Test Item Value Reference Range Interpretation Comments DIAGNOSIS: (test code = 8200) (NOTE) MICROSCOPIC DESCRIPTION: (test (NOTE) code = 8210) PATHOLOGIST: (test code = 8250) (NOTE) CPT: (test code = 8400) 87569 WBC (test code = 1001) 10.1 K/UL RBC (test code = 1002) 4.36 M/UL HEMOGLOBIN (test code = 1003) 13.2 G/DL HEMATOCRIT (test code = 1004) 40.1 % MCV (test code = 1005) 92.0 fL MCH (test code = 1006) 30.3 PG MCHC (test code = 1007) 32.9 G/DL RDW (test code = 1038) 12.5 % NEUTROPHILS (test code = 1008) 70.1 % LYMPHOCYTES (test code = 1010) 21.5 % MONOCYTES (test code = 1011) 6.4 % EOSINOPHILS (test code = 1012) 1.1 % BASOPHILS (test code = 1013) 0.4 % IMMATURE GRANULOCYTES (test 0.5 % code = 1036) NUCLEATED RBCS (test code = 0.0 /100WBC'S 1065) PLATELET COUNT (test code = 328 K/UL 1015) ABSOLUTE NEUTROPHILS (test code 7.05 K/UL = 1066) ABSOLUTE LYMPHOCYTES (test code 2.16 K/UL = 1067) ABSOLUTE MONOCYTES (test code = 0.64 K/UL 1068) ABSOLUTE EOSINOPHILS (test code 0.11 K/UL = 1040) ABSOLUTE BASOPHILS (test code = 0.04 K/UL 1069) ABS IMMATURE GRANULOCYTES (test 0.05 K/UL code = 1020) ABS NUCLEATED RBCS (test code = 0.00 K/UL 97740) COMMENTS (test code = 1016) (NOTE) PATHOLOGIST SMEAR [id number] 00:00:00 Test Item Value Reference Range Interpretation Comments DIAGNOSIS: (test code = 8200) (NOTE) MICROSCOPIC DESCRIPTION: (test (NOTE) code = 8210) PATHOLOGIST: (test code = 8250) (NOTE) CPT: (test code = 8400) 16115 WBC (test code = 1001) 10.1 K/UL RBC (test code = 1002) 4.36 M/UL HEMOGLOBIN (test code = 1003) 13.2 G/DL HEMATOCRIT (test code = 1004) 40.1 % MCV (test code = 1005) 92.0 fL MCH (test code = 1006) 30.3 PG MCHC (test code = 1007) 32.9 G/DL RDW (test code = 1038) 12.5 % NEUTROPHILS (test code = 1008) 70.1 % LYMPHOCYTES (test code = 1010) 21.5 % MONOCYTES (test code = 1011) 6.4 % EOSINOPHILS (test code = 1012) 1.1 % BASOPHILS (test code = 1013) 0.4 % IMMATURE GRANULOCYTES (test 0.5 % code = 1036) NUCLEATED RBCS (test code = 0.0 /100WBC'S 1065) PLATELET COUNT (test code = 328 K/UL 1015) ABSOLUTE NEUTROPHILS (test code 7.05 K/UL = 1066) ABSOLUTE LYMPHOCYTES (test code 2.16 K/UL = 1067) ABSOLUTE MONOCYTES (test code = 0.64 K/UL 1068) ABSOLUTE EOSINOPHILS (test code 0.11 K/UL = 1040) ABSOLUTE BASOPHILS (test code = 0.04 K/UL 1069) ABS IMMATURE GRANULOCYTES (test 0.05 K/UL code = 1020) ABS NUCLEATED RBCS (test code = 0.00 K/UL 67076) COMMENTS (test code = 1016) (NOTE) PATHOLOGIST SMEAR [id number] 00:00:00 Test Item Value Reference Range Interpretation Comments DIAGNOSIS: (test code = 8200) (NOTE) MICROSCOPIC DESCRIPTION: (test (NOTE) code = 8210) PATHOLOGIST: (test code = 8250) (NOTE) CPT: (test code = 8400) 51891 WBC (test code = 1001) 10.1 K/UL RBC (test code = 1002) 4.36 M/UL HEMOGLOBIN (test code = 1003) 13.2 G/DL HEMATOCRIT (test code = 1004) 40.1 % MCV (test code = 1005) 92.0 fL MCH (test code = 1006) 30.3 PG MCHC (test code = 1007) 32.9 G/DL RDW (test code = 1038) 12.5 % NEUTROPHILS (test code = 1008) 70.1 % LYMPHOCYTES (test code = 1010) 21.5 % MONOCYTES (test code = 1011) 6.4 % EOSINOPHILS (test code = 1012) 1.1 % BASOPHILS (test code = 1013) 0.4 % IMMATURE GRANULOCYTES (test 0.5 % code = 1036) NUCLEATED RBCS (test code = 0.0 /100WBC'S 1065) PLATELET COUNT (test code = 328 K/UL 1015) ABSOLUTE NEUTROPHILS (test code 7.05 K/UL = 1066) ABSOLUTE LYMPHOCYTES (test code 2.16 K/UL = 1067) ABSOLUTE MONOCYTES (test code = 0.64 K/UL 1068) ABSOLUTE EOSINOPHILS (test code 0.11 K/UL = 1040) ABSOLUTE BASOPHILS (test code = 0.04 K/UL 1069) ABS IMMATURE GRANULOCYTES (test 0.05 K/UL code = 1020) ABS NUCLEATED RBCS (test code = 0.00 K/UL 11528) COMMENTS (test code = 1016) (NOTE) PATHOLOGIST SMEAR [id number] 00:00:00 Test Item Value Reference Range Interpretation Comments DIAGNOSIS: (test code = 8200) (NOTE) MICROSCOPIC DESCRIPTION: (test (NOTE) code = 8210) PATHOLOGIST: (test code = 8250) (NOTE) CPT: (test code = 8400) 62270 WBC (test code = 1001) 10.1 K/UL RBC (test code = 1002) 4.36 M/UL HEMOGLOBIN (test code = 1003) 13.2 G/DL HEMATOCRIT (test code = 1004) 40.1 % MCV (test code = 1005) 92.0 fL MCH (test code = 1006) 30.3 PG MCHC (test code = 1007) 32.9 G/DL RDW (test code = 1038) 12.5 % NEUTROPHILS (test code = 1008) 70.1 % LYMPHOCYTES (test code = 1010) 21.5 % MONOCYTES (test code = 1011) 6.4 % EOSINOPHILS (test code = 1012) 1.1 % BASOPHILS (test code = 1013) 0.4 % IMMATURE GRANULOCYTES (test 0.5 % code = 1036) NUCLEATED RBCS (test code = 0.0 /100WBC'S 1065) PLATELET COUNT (test code = 328 K/UL 1015) ABSOLUTE NEUTROPHILS (test code 7.05 K/UL = 1066) ABSOLUTE LYMPHOCYTES (test code 2.16 K/UL = 1067) ABSOLUTE MONOCYTES (test code = 0.64 K/UL 1068) ABSOLUTE EOSINOPHILS (test code 0.11 K/UL = 1040) ABSOLUTE BASOPHILS (test code = 0.04 K/UL 1069) ABS IMMATURE GRANULOCYTES (test 0.05 K/UL code = 1020) ABS NUCLEATED RBCS (test code = 0.00 K/UL 40601) COMMENTS (test code = 1016) (NOTE) PATHOLOGIST SMEAR [id number] 00:00:00 Test Item Value Reference Range Interpretation Comments DIAGNOSIS: (test code = 8200) (NOTE) MICROSCOPIC DESCRIPTION: (test (NOTE) code = 8210) PATHOLOGIST: (test code = 8250) (NOTE) CPT: (test code = 8400) 69562 WBC (test code = 1001) 10.1 K/UL RBC (test code = 1002) 4.36 M/UL HEMOGLOBIN (test code = 1003) 13.2 G/DL HEMATOCRIT (test code = 1004) 40.1 % MCV (test code = 1005) 92.0 fL MCH (test code = 1006) 30.3 PG MCHC (test code = 1007) 32.9 G/DL RDW (test code = 1038) 12.5 % NEUTROPHILS (test code = 1008) 70.1 % LYMPHOCYTES (test code = 1010) 21.5 % MONOCYTES (test code = 1011) 6.4 % EOSINOPHILS (test code = 1012) 1.1 % BASOPHILS (test code = 1013) 0.4 % IMMATURE GRANULOCYTES (test 0.5 % code = 1036) NUCLEATED RBCS (test code = 0.0 /100WBC'S 1065) PLATELET COUNT (test code = 328 K/UL 1015) ABSOLUTE NEUTROPHILS (test code 7.05 K/UL = 1066) ABSOLUTE LYMPHOCYTES (test code 2.16 K/UL = 1067) ABSOLUTE MONOCYTES (test code = 0.64 K/UL 1068) ABSOLUTE EOSINOPHILS (test code 0.11 K/UL = 1040) ABSOLUTE BASOPHILS (test code = 0.04 K/UL 1069) ABS IMMATURE GRANULOCYTES (test 0.05 K/UL code = 1020) ABS NUCLEATED RBCS (test code = 0.00 K/UL 59351) COMMENTS (test code = 1016) (NOTE) PATHOLOGIST SMEAR [id number] 00:00:00 Test Item Value Reference Range Interpretation Comments DIAGNOSIS: (test code = 8200) (NOTE) MICROSCOPIC DESCRIPTION: (test (NOTE) code = 8210) PATHOLOGIST: (test code = 8250) (NOTE) CPT: (test code = 8400) 80279 WBC (test code = 1001) 10.1 K/UL RBC (test code = 1002) 4.36 M/UL HEMOGLOBIN (test code = 1003) 13.2 G/DL HEMATOCRIT (test code = 1004) 40.1 % MCV (test code = 1005) 92.0 fL MCH (test code = 1006) 30.3 PG MCHC (test code = 1007) 32.9 G/DL RDW (test code = 1038) 12.5 % NEUTROPHILS (test code = 1008) 70.1 % LYMPHOCYTES (test code = 1010) 21.5 % MONOCYTES (test code = 1011) 6.4 % EOSINOPHILS (test code = 1012) 1.1 % BASOPHILS (test code = 1013) 0.4 % IMMATURE GRANULOCYTES (test 0.5 % code = 1036) NUCLEATED RBCS (test code = 0.0 /100WBC'S 1065) PLATELET COUNT (test code = 328 K/UL 1015) ABSOLUTE NEUTROPHILS (test code 7.05 K/UL = 1066) ABSOLUTE LYMPHOCYTES (test code 2.16 K/UL = 1067) ABSOLUTE MONOCYTES (test code = 0.64 K/UL 1068) ABSOLUTE EOSINOPHILS (test code 0.11 K/UL = 1040) ABSOLUTE BASOPHILS (test code = 0.04 K/UL 1069) ABS IMMATURE GRANULOCYTES (test 0.05 K/UL code = 1020) ABS NUCLEATED RBCS (test code = 0.00 K/UL 46317) COMMENTS (test code = 1016) (NOTE) PATHOLOGIST SMEAR [id number] 00:00:00 Test Item Value Reference Range Interpretation Comments DIAGNOSIS: (test code = 8200) (NOTE) MICROSCOPIC DESCRIPTION: (test (NOTE) code = 8210) PATHOLOGIST: (test code = 8250) (NOTE) CPT: (test code = 8400) 89880 WBC (test code = 1001) 10.1 K/UL RBC (test code = 1002) 4.36 M/UL HEMOGLOBIN (test code = 1003) 13.2 G/DL HEMATOCRIT (test code = 1004) 40.1 % MCV (test code = 1005) 92.0 fL MCH (test code = 1006) 30.3 PG MCHC (test code = 1007) 32.9 G/DL RDW (test code = 1038) 12.5 % NEUTROPHILS (test code = 1008) 70.1 % LYMPHOCYTES (test code = 1010) 21.5 % MONOCYTES (test code = 1011) 6.4 % EOSINOPHILS (test code = 1012) 1.1 % BASOPHILS (test code = 1013) 0.4 % IMMATURE GRANULOCYTES (test 0.5 % code = 1036) NUCLEATED RBCS (test code = 0.0 /100WBC'S 1065) PLATELET COUNT (test code = 328 K/UL 1015) ABSOLUTE NEUTROPHILS (test code 7.05 K/UL = 1066) ABSOLUTE LYMPHOCYTES (test code 2.16 K/UL = 1067) ABSOLUTE MONOCYTES (test code = 0.64 K/UL 1068) ABSOLUTE EOSINOPHILS (test code 0.11 K/UL = 1040) ABSOLUTE BASOPHILS (test code = 0.04 K/UL 1069) ABS IMMATURE GRANULOCYTES (test 0.05 K/UL code = 1020) ABS NUCLEATED RBCS (test code = 0.00 K/UL 26778) COMMENTS (test code = 1016) (NOTE) PATHOLOGIST SMEAR [id number] 04:13:47 Test Item Value Reference Range Interpretation Comments DIAGNOSIS: (test (NOTE) PERIPHERAL BLOOD SMEAR code = 8200) REVIEW:No patho logic abnormalities i dentified. MICROSCOPIC (NOTE) Please see a CB C dated DESCRIPTION: (test 09/10/2021 for hematologic code = 8210) parameters. Exa mination of the peripheral smear reveals a normo cytic andnormochromic red cell population with out anemia or morphologicabno rmalities. White blood darlene ls are quantitatively within normallimits an d demonstrate a n ormal differential co unt and normalleukocyte morphology. Omkar sts are not increased and n o significantdysp lastic changes or atyp ical lymphocytes are identified. The re isno significant gra nulocytic left shift. Mari telets are within normalli mits. (ks;09/12) PATHOLOGIST: (test (NOTE) Katrina Enrique, code = 8250) [place] ([employer]) Diploma te, [employer] with Subspecialty Certification, Hematology CPT: (test code = 87399 8400) WBC (test code = 10.1 K/UL 3.5-11.0 1001) RBC (test code = 4.36 M/UL 3.80-5.40 1002) HEMOGLOBIN (test 13.2 G/DL 11.5-15.5 code = 1003) HEMATOCRIT (test 40.1 % 34.0-45.0 code = 1004) MCV (test code = 92.0 fL 80.0-99.0 1005) MCH (test code = 30.3 PG 25.0-33.0 1006) MCHC (test code = 32.9 G/DL 31.0-36.0 1007) RDW (test code = 12.5 % 11.5-15.0 1038) NEUTROPHILS (test 70.1 % AUTOMATED DIFFERENTIAL code = 1008) CONFIRMED WITH MANUAL SLIDE REVIEW. LYMPHOCYTES (test 21.5 % code = 1010) MONOCYTES (test 6.4 % code = 1011) EOSINOPHILS (test 1.1 % code = 1012) BASOPHILS (test 0.4 % code = 1013) IMMATURE 0.5 % GRANULOCYTES (test code = 1036) NUCLEATED RBCS 0.0 /100 See_Comment [Automated m essage] The (test code = 1065) WBC'S system [facility] generated this result tra nsmitted reference range : 0.0. The reference range was not used to interpr et this result as shen l/abnormal. PLATELET COUNT 328 K/UL 130-400 (test code = 1015) ABSOLUTE 7.05 K/UL 1.50-7.50 NEUTROPHILS (test code = 1066) ABSOLUTE 2.16 K/UL 1.00-4.00 LYMPHOCYTES (test code = 1067) ABSOLUTE MONOCYTES 0.64 K/UL 0.20-1.00 (test code = 1068) ABSOLUTE 0.11 K/UL 0.00-0.50 EOSINOPHILS (test code = 1040) ABSOLUTE BASOPHILS 0.04 K/UL 0.00-0.20 (test code = 1069) ABS IMMATURE 0.05 K/UL 0.00-0.10 GRANULOCYTES (test code = 1020) ABS NUCLEATED RBCS 0.00 K/UL 0.00-0.11 (test code = 90466) COMMENTS (test (NOTE) NO SPECIFIC RBC code = 1016) ABNORMALITIES I DENTIFIED PLATELETS APPEA R NORMAL UNLESS OTHERWIS E INDICATED, ALL TESTING PERFORMED ATCLI NICAL PATHOLOGY FORMERLY [facility] [address] [place] [id number] [place] [address] DIRECTOR: FÁTIMA DANIEL M.D. CLIA NUMBER [id number] CAP ACCREDITATION N O. [id number] COMPREHENSIVE METABOLIC [id number] 06:13:33 Test Item Value Reference Range Interpretation Comments GLUCOSE (test code = 91 MG/DL 70-99 2216) BUN (test code = 12 MG/DL -2207) CREATININE (test 0.83 MG/DL 0.60-1.30 code = 2214) eGFR (2020 CKD-EPI) 82 ML/MIN/1.73 >60 (test code = 64345) CALC BUN/CREAT (test 14 RATIO -28 code = 2235) SODIUM (test code = 142 MEQ/L 488-704 9364) POTASSIUM (test code 4.4 MEQ/L 3.5-5.4 = 8) CHLORIDE (test code 104 MEQ/L 95-107 = 221) CARBON DIOXIDE (test 22 MEQ/L 19-31 code = 220) CALCIUM (test code = 9.7 MG/DL 8.5-10.5 2208) PROTEIN, TOTAL (test 7.3 G/DL 6.1-8.3 code = 222) ALBUMIN (test code = 4.5 G/DL 3.5-5.2 2200) CALC GLOBULIN (test 2.8 G/DL 1.9-3.7 code = 2240) CALC A/G RATIO (test 1.6 RATIO 1.0-2.6 code = 223) BILIRUBIN, TOTAL 0.4 MG/DL See_Comment [Automated message] (test code = 220) The syste [employer] which generated this result transmit trice reference range : <=1.2. The refe rence range was not u sed to interpret th is result as normal/abnormal . ALKALINE PHOSPHATASE 76 U/L 40-136 (test code = 220) AST (test code = 22 U/L 9-40 2217) ALT (test code = 12 U/L 5-40 2218) COMPREHENSIVE METABOLIC [id number] 00:00:00 Test Item Value Reference Range Interpretation Comments GLUCOSE (test code = 2217) 91 MG/DL BUN (test code = 2208) 12 MG/DL CREATININE (test code = 2214) 0.83 MG/DL eGFR (2020 CKD-EPI) (test code 82 ML/MIN/1.73 = 15068) CALC BUN/CREAT (test code = 14 RATIO 2234) SODIUM (test code = 2231) 142 MEQ/L POTASSIUM (test code = 2228) 4.4 MEQ/L CHLORIDE (test code = 2215) 104 MEQ/L CARBON DIOXIDE (test code = 22 MEQ/L 2205) CALCIUM (test code = 2209) 9.7 MG/DL PROTEIN, TOTAL (test code = 7.3 G/DL 2228) ALBUMIN (test code = 220) 4.5 G/DL CALC GLOBULIN (test code = 2.8 G/DL 0) CALC A/G RATIO (test code = 1.6 RATIO 2234) BILIRUBIN, TOTAL (test code = 0.4 MG/DL 2207) ALKALINE PHOSPHATASE (test 76 U/L code = 2204) AST (test code = 2218) 22 U/L ALT (test code = 2219) 12 U/L COMPREHENSIVE METABOLIC [id number] 00:00:00 Test Item Value Reference Range Interpretation Comments GLUCOSE (test code = 2217) 91 MG/DL BUN (test code = 2208) 12 MG/DL CREATININE (test code = 2214) 0.83 MG/DL eGFR (2020 CKD-EPI) (test code 82 ML/MIN/1.73 = 07880) CALC BUN/CREAT (test code = 14 RATIO 2235) SODIUM (test code = 2231) 142 MEQ/L POTASSIUM (test code = 2228) 4.4 MEQ/L CHLORIDE (test code = 2215) 104 MEQ/L CARBON DIOXIDE (test code = 22 MEQ/L 220) CALCIUM (test code = 2209) 9.7 MG/DL PROTEIN, TOTAL (test code = 7.3 G/DL 2228) ALBUMIN (test code = 2201) 4.5 G/DL CALC GLOBULIN (test code = 2.8 G/DL 2240) CALC A/G RATIO (test code = 1.6 RATIO 2234) BILIRUBIN, TOTAL (test code = 0.4 MG/DL 7) ALKALINE PHOSPHATASE (test 76 U/L code = 2204) AST (test code = 2218) 22 U/L ALT (test code = 2219) 12 U/L COMPREHENSIVE METABOLIC [id number] 00:00:00 Test Item Value Reference Range Interpretation Comments GLUCOSE (test code = 2217) 91 MG/DL BUN (test code = 2208) 12 MG/DL CREATININE (test code = 2214) 0.83 MG/DL eGFR (2020 CKD-EPI) (test code 82 ML/MIN/1.73 = 27941) CALC BUN/CREAT (test code = 14 RATIO 2235) SODIUM (test code = 2231) 142 MEQ/L POTASSIUM (test code = 2228) 4.4 MEQ/L CHLORIDE (test code = 2215) 104 MEQ/L CARBON DIOXIDE (test code = 22 MEQ/L 2206) CALCIUM (test code = 2209) 9.7 MG/DL PROTEIN, TOTAL (test code = 7.3 G/DL 2229) ALBUMIN (test code = 2201) 4.5 G/DL CALC GLOBULIN (test code = 2.8 G/DL 2240) CALC A/G RATIO (test code = 1.6 RATIO 2234) BILIRUBIN, TOTAL (test code = 0.4 MG/DL 220) ALKALINE PHOSPHATASE (test 76 U/L code = 2204) AST (test code = 2218) 22 U/L ALT (test code = 2219) 12 U/L COMPREHENSIVE METABOLIC [id number] 00:00:00 Test Item Value Reference Range Interpretation Comments GLUCOSE (test code = 2217) 91 MG/DL BUN (test code = 2208) 12 MG/DL CREATININE (test code = 2214) 0.83 MG/DL eGFR (2020 CKD-EPI) (test code 82 ML/MIN/1.73 = 55052) CALC BUN/CREAT (test code = 14 RATIO 2235) SODIUM (test code = 2231) 142 MEQ/L POTASSIUM (test code = 2228) 4.4 MEQ/L CHLORIDE (test code = 2215) 104 MEQ/L CARBON DIOXIDE (test code = 22 MEQ/L 2206) CALCIUM (test code = 2209) 9.7 MG/DL PROTEIN, TOTAL (test code = 7.3 G/DL 9) ALBUMIN (test code = 2201) 4.5 G/DL CALC GLOBULIN (test code = 2.8 G/DL 2240) CALC A/G RATIO (test code = 1.6 RATIO 2234) BILIRUBIN, TOTAL (test code = 0.4 MG/DL 2206) ALKALINE PHOSPHATASE (test 76 U/L code = 2204) AST (test code = 2218) 22 U/L ALT (test code = 2219) 12 U/L COMPREHENSIVE METABOLIC [id number] 00:00:00 Test Item Value Reference Range Interpretation Comments GLUCOSE (test code = 2217) 91 MG/DL BUN (test code = 2208) 12 MG/DL CREATININE (test code = 2214) 0.83 MG/DL eGFR (2020 CKD-EPI) (test code 82 ML/MIN/1.73 = 06299) CALC BUN/CREAT (test code = 14 RATIO 2235) SODIUM (test code = 2231) 142 MEQ/L POTASSIUM (test code = 2228) 4.4 MEQ/L CHLORIDE (test code = 2215) 104 MEQ/L CARBON DIOXIDE (test code = 22 MEQ/L 2206) CALCIUM (test code = 2209) 9.7 MG/DL PROTEIN, TOTAL (test code = 7.3 G/DL 2229) ALBUMIN (test code = 2201) 4.5 G/DL CALC GLOBULIN (test code = 2.8 G/DL 2240) CALC A/G RATIO (test code = 1.6 RATIO 2234) BILIRUBIN, TOTAL (test code = 0.4 MG/DL 220) ALKALINE PHOSPHATASE (test 76 U/L code = 2204) AST (test code = 2218) 22 U/L ALT (test code = 2219) 12 U/L COMPREHENSIVE METABOLIC [id number] 00:00:00 Test Item Value Reference Range Interpretation Comments GLUCOSE (test code = 2217) 91 MG/DL BUN (test code = 2208) 12 MG/DL CREATININE (test code = 2214) 0.83 MG/DL eGFR (2020 CKD-EPI) (test code 82 ML/MIN/1.73 = 27248) CALC BUN/CREAT (test code = 14 RATIO 2235) SODIUM (test code = 2231) 142 MEQ/L POTASSIUM (test code = 2228) 4.4 MEQ/L CHLORIDE (test code = 2215) 104 MEQ/L CARBON DIOXIDE (test code = 22 MEQ/L 2205) CALCIUM (test code = 2209) 9.7 MG/DL PROTEIN, TOTAL (test code = 7.3 G/DL 2228) ALBUMIN (test code = 2201) 4.5 G/DL CALC GLOBULIN (test code = 2.8 G/DL 2240) CALC A/G RATIO (test code = 1.6 RATIO 2234) BILIRUBIN, TOTAL (test code = 0.4 MG/DL 2206) ALKALINE PHOSPHATASE (test 76 U/L code = 2204) AST (test code = 2218) 22 U/L ALT (test code = 2219) 12 U/L COMPREHENSIVE METABOLIC [id number] 00:00:00 Test Item Value Reference Range Interpretation Comments GLUCOSE (test code = 2217) 91 MG/DL BUN (test code = 2208) 12 MG/DL CREATININE (test code = 2214) 0.83 MG/DL eGFR (2020 CKD-EPI) (test code 82 ML/MIN/1.73 = 67049) CALC BUN/CREAT (test code = 14 RATIO 2235) SODIUM (test code = 2231) 142 MEQ/L POTASSIUM (test code = 2228) 4.4 MEQ/L CHLORIDE (test code = 2215) 104 MEQ/L CARBON DIOXIDE (test code = 22 MEQ/L 2206) CALCIUM (test code = 2209) 9.7 MG/DL PROTEIN, TOTAL (test code = 7.3 G/DL 2229) ALBUMIN (test code = 2201) 4.5 G/DL CALC GLOBULIN (test code = 2.8 G/DL 2240) CALC A/G RATIO (test code = 1.6 RATIO 2234) BILIRUBIN, TOTAL (test code = 0.4 MG/DL 2206) ALKALINE PHOSPHATASE (test 76 U/L code = 2204) AST (test code = 2218) 22 U/L ALT (test code = 2219) 12 U/L COMPREHENSIVE METABOLIC [id number] 00:00:00 Test Item Value Reference Range Interpretation Comments GLUCOSE (test code = 2217) 91 MG/DL BUN (test code = 2208) 12 MG/DL CREATININE (test code = 2214) 0.83 MG/DL eGFR (2020 CKD-EPI) (test code 82 ML/MIN/1.73 = 83431) CALC BUN/CREAT (test code = 14 RATIO 2235) SODIUM (test code = 2231) 142 MEQ/L POTASSIUM (test code = 2228) 4.4 MEQ/L CHLORIDE (test code = 2215) 104 MEQ/L CARBON DIOXIDE (test code = 22 MEQ/L 220) CALCIUM (test code = 2209) 9.7 MG/DL PROTEIN, TOTAL (test code = 7.3 G/DL 2229) ALBUMIN (test code = 2201) 4.5 G/DL CALC GLOBULIN (test code = 2.8 G/DL 2240) CALC A/G RATIO (test code = 1.6 RATIO 2234) BILIRUBIN, TOTAL (test code = 0.4 MG/DL 2207) ALKALINE PHOSPHATASE (test 76 U/L code = 2204) AST (test code = 2218) 22 U/L ALT (test code = 2219) 12 U/L PAP TEST, THINPREP, [id number] 17:26:05 Test Item Value Reference Range Interpretation Comments SOURCE: (test Endocervical code = 8001) SLIDES: (test 1 code = 8011) LMP: (test code YEARS AGO = 8021) SPECIMEN (NOTE) Satisfactory f or ADEQUACY: (test evaluation. code = 82773) Endocervical cells/transform ation zone component not identified. INTERPRETATION: NILM/NO EPITH. (test code = ABNORMALITY;SEE 55981) BELOW ------- ---- NEGATI VE FOR INTRAEPITHELIAL LESION OR MALIGNANCY ( NILM) ------- ------- ------- ------- OTHER COMMENTS: (NOTE) Shift in joe ra (test code = suggestive of 8081) bacterial vagin osis. The absence of endocervical ce lls is confirmed by a seniorcytotechn ologist . CYTOTECHNOLOGIS Mis T: (test code = JENNIFER Calderon(ASCP 8101) )CYN Rosario TECHNOLOGIST: NISH Sanchez(ASCP), (test code = IAC 8111) LOCATION: (test (NOTE) Specimens pr ocessed code = 52369) and interprete d at [facility] [address], Phone: , CLIA: [id number] CPT: (test code (NOTE) 29501 UNLESS OTHERWISE = 8140) INDICATED, COMP UTER AIDED AND CYTOTECHNOLOGIS T SCREENING PERFO RMED. The Pap test is a screening test with an inherent, but l ow probability of error. Your patient sh ould be reminded to con sult you immediately if she experiences any suspicious sign s or symptoms, regar dless of her Pap test result. An alte rnate report format containing imag es or consolidated pr ior Pap history is twyla yan as applicable. PAP TEST, THINPREP, [id number] 00:00:00 Test Item Value Reference Range Interpretation Comments SOURCE: (test code = Endocervical 8001) SLIDES: (test code = 1 8011) LMP: (test code = YEARS AGO 8021) SPECIMEN ADEQUACY: (NOTE) (test code = 56238) INTERPRETATION: (test NILM/NO EPITH. code = 15782) ABNORMALITY;SEE BELOW OTHER COMMENTS: (test (NOTE) code = 8081) HIGHWALL DRILL OPERATOR: Mis (test code = 8101) JENNIFER Calderon(ASCP)IAC QC TECHNOLOGIST: Abraham (test code = 8111) NISH Sanchez(ASCP),IAC LOCATION: (test code (NOTE) = 47962) CPT: (test code = (NOTE) 8140) PAP TEST, THINPREP, [id number] 00:00:00 Test Item Value Reference Range Interpretation Comments SOURCE: (test code = Endocervical 800) SLIDES: (test code = 1 8011) LMP: (test code = YEARS AGO 8021) SPECIMEN ADEQUACY: (NOTE) (test code = 87359) INTERPRETATION: (test NILM/NO EPITH. code = 27201) ABNORMALITY;SEE BELOW OTHER COMMENTS: (test (NOTE) code = 8081) HIGHWALL DRILL OPERATOR: Mis (test code = 8101) JENNIFER Calderon(ASCP)IAC QC TECHNOLOGIST: Abraham (test code = 8111) NISH Sanchez(ASCP),IAC LOCATION: (test code (NOTE) = 69468) CPT: (test code = (NOTE) 8140) PAP TEST, THINPREP, [id number] 00:00:00 Test Item Value Reference Range Interpretation Comments SOURCE: (test code = Endocervical 8001) SLIDES: (test code = 1 8011) LMP: (test code = YEARS AGO 8021) SPECIMEN ADEQUACY: (NOTE) (test code = 96912) INTERPRETATION: (test NILM/NO EPITH. code = 10104) ABNORMALITY;SEE BELOW OTHER COMMENTS: (test (NOTE) code = 8081) HIGHWALL DRILL OPERATOR: Mis (test code = 8101) JENNIFER Calderon(ASCP)IAC QC TECHNOLOGIST: Abraham (test code = 8111) Laura,SCT(ASCP),IAC LOCATION: (test code (NOTE) = 53348) CPT: (test code = (NOTE) 8140) PAP TEST, THINPREP, [id number] 00:00:00 Test Item Value Reference Range Interpretation Comments SOURCE: (test code = Endocervical 8001) SLIDES: (test code = 1 8011) LMP: (test code = YEARS AGO 8021) SPECIMEN ADEQUACY: (NOTE) (test code = 64285) INTERPRETATION: (test NILM/NO EPITH. code = 18372) ABNORMALITY;SEE BELOW OTHER COMMENTS: (test (NOTE) code = 8081) HIGHWALL DRILL OPERATOR: Mis (test code = 8101) JENNIFER Calderon(ASCP)IAC QC TECHNOLOGIST: Abraham (test code = 8111) Laura,SCT(ASCP),IAC LOCATION: (test code (NOTE) = 60624) CPT: (test code = (NOTE) 8140) PAP TEST, THINPREP, [id number] 00:00:00 Test Item Value Reference Range Interpretation Comments SOURCE: (test code = Endocervical 8001) SLIDES: (test code = 1 8011) LMP: (test code = YEARS AGO 8021) SPECIMEN ADEQUACY: (NOTE) (test code = 46027) INTERPRETATION: (test NILM/NO EPITH. code = 96461) ABNORMALITY;SEE BELOW OTHER COMMENTS: (test (NOTE) code = 8081) HIGHWALL DRILL OPERATOR: Mis (test code = 8101) JENNIFER Calderon(ASCP)IAC QC TECHNOLOGIST: Abraham (test code = 8111) LauraSCT(ASCP),IAC LOCATION: (test code (NOTE) = 43625) CPT: (test code = (NOTE) 8140) PAP TEST, THINPREP, [id number] 00:00:00 Test Item Value Reference Range Interpretation Comments SOURCE: (test code = Endocervical 8001) SLIDES: (test code = 1 8011) LMP: (test code = YEARS AGO 8021) SPECIMEN ADEQUACY: (NOTE) (test code = 41760) INTERPRETATION: (test NILM/NO EPITH. code = 57833) ABNORMALITY;SEE BELOW OTHER COMMENTS: (test (NOTE) code = 8081) HIGHWALL DRILL OPERATOR: Mis (test code = 8101) JENNIFER Calderon(ASCP)IAC QC TECHNOLOGIST: Abraham (test code = 8111) Laura,SCT(ASCP),IAC LOCATION: (test code (NOTE) = 50604) CPT: (test code = (NOTE) 8140) PAP TEST, THINPREP, [id number] 00:00:00 Test Item Value Reference Range Interpretation Comments SOURCE: (test code = Endocervical 8001) SLIDES: (test code = 1 8011) LMP: (test code = YEARS AGO 8021) SPECIMEN ADEQUACY: (NOTE) (test code = 55091) INTERPRETATION: (test NILM/NO EPITH. code = 06690) ABNORMALITY;SEE BELOW OTHER COMMENTS: (test (NOTE) code = 8081) HIGHWALL DRILL OPERATOR: Mis (test code = 8101) JENNIFER Calderon(ASCP)IAC QC TECHNOLOGIST: Abraham (test code = 8111) LauraSCT(ASCP),IAC LOCATION: (test code (NOTE) = 67702) CPT: (test code = (NOTE) 8140) PAP TEST, THINPREP, [id number] 00:00:00 Test Item Value Reference Range Interpretation Comments SOURCE: (test code = Endocervical 8001) SLIDES: (test code = 1 8011) LMP: (test code = YEARS AGO 8021) SPECIMEN ADEQUACY: (NOTE) (test code = 97194) INTERPRETATION: (test NILM/NO EPITH. code = 85163) ABNORMALITY;SEE BELOW OTHER COMMENTS: (test (NOTE) code = 8081) HIGHWALL DRILL OPERATOR: Mis (test code = 8101) JENNIFER Calderon(ASCP)IAC QC TECHNOLOGIST: Abraham (test code = 8111) LauraSCT(ASCP),IAC LOCATION: (test code (NOTE) = 64654) CPT: (test code = (NOTE) 8140) CT/NG, TMA, [id number] 20:15:28 Test Item Value Reference Range Interpretation Comments GONORRHEA, TMA NEGATIVE NEGATIVE Assay method ology is (test code = nucleic acid am plification 06974) by transcriptio n mediated amplification ( TMA) utilizing the A ptima Combo 2 Assay. CHLAMYDIA, TMA NEGATIVE NEGATIVE Assay method ology is (test code = nucleic acid am plification 90794) by transcriptio n mediated amplification ( TMA) utilizing the A ptima Combo 2 Assay. HPV HIGH RISK WITH GENOTYPE, [id number] 15:59:31 Test Item Value Reference Range Interpretation Comments HPV HIGH RISK INTERP NEGATIVE NEGATIVE (test code = 06627) HPV 16 (test code = NEGATIVE 39081) HPV 18 (test code = NEGATIVE 93466) HPV, HR, OTHER NEGATIVE Testing meth odology is GENOTYPES (test code real-ti me PCR utilizing = 26952) hydrolysis prob es with the [employer] 4800 system. The evan t individually de tects genotypes 16 an d 18, as well as the oth er 12 high risk types (31,33,35,39,45 ,51,52,56 ,58,59,66,68). The expected result is negative. A neg ative result does not rule out the presence of HPV not included in the genotype set, a low leve l of infection or sp ecimen sampling error. UNLESS OTHERWISE INDIC ATED, ALL TESTING PERFORM ED ATCLINICAL PATH OLOGY LABORATORIES, [facility]. [address] [place] [address] LABORATORY DIRE CTOR: FÁTIMA VIDES M.D. CLIA NUMBER [id number] [facility] [id number] HIV 1/2 4TH GEN, RFLX [id number] 03:56:03 Test Item Value Reference Range Interpretation Comments HIV 1/2 4TH GEN, RFLX CONF (test NON-REACTIVE NON-REACTIVE code = 3514) HEPATITIS PANEL, [id number] 03:56:03 Test Item Value Reference Range Interpretation Comments HEPATITIS A IgM (test NON-REACTIVE NON-REACTIVE code = 79639) HEPATITIS B CORE IgM NON-REACTIVE NON-REACTIVE (test code = 4644) HEPATITIS B SURF AG NON-REACTIVE NON-REACTIVE (test code = 2739) HEPATITIS C ANTIBODY NON-REACTIVE NON-REACTIVE (test code = 4675) INTERPRETATION (NOTE) Hepatitis A HEPATITIS A: (test code sero logy shows no = 4712) evidence of acu te hepatitis A. INTERPRETATION (NOTE) Hepatitis B HEPATITIS B: (test code sero logy shows no = 33590) evidence of acu te hepatitis B and no indication of exposure to hepatitis B vir us in the previous ruchi eight months. INTERPRETATION (NOTE) Hepatitis C HEPATITIS C: (test code sero logy shows no = 54973) evidence of exposure to hepatitisC viru s at this time. I t can take up to 12 months after exposure tothe hepatitis C vir us for antibodies to become detectab le in the blood in certain patient s. GC AND CHLAMYDIA AMPLIFIED, [id number] 00:00:00 Test Item Value Reference Range Interpretation Comments GONORRHEA, TMA (test code = 30702) NEGATIVE CHLAMYDIA, TMA (test code = 70706) NEGATIVE HIV AB/AG COMBO RFLX [id number] 00:00:00 Test Item Value Reference Range Interpretation Comments HIV 1/2 4TH GEN, RFLX CONF (test NON-REACTIVE code = 3514) GC AND CHLAMYDIA AMPLIFIED, [id number] 00:00:00 Test Item Value Reference Range Interpretation Comments GONORRHEA, TMA (test code = 31013) NEGATIVE CHLAMYDIA, TMA (test code = 02536) NEGATIVE HIV AB/AG COMBO RFLX [id number] 00:00:00 Test Item Value Reference Range Interpretation Comments HIV 1/2 4TH GEN, RFLX CONF (test NON-REACTIVE code = 3514) ACUTE HEPATITIS [id number] 00:00:00 Test Item Value Reference Range Interpretation Comments HEPATITIS A IgM (test code = NON-REACTIVE 74059) HEPATITIS B CORE IgM (test code NON-REACTIVE = 4644) HEPATITIS B SURF AG (test code = NON-REACTIVE 2739) HEPATITIS C ANTIBODY (test code NON-REACTIVE = 4675) INTERPRETATION HEPATITIS A: (NOTE) (test code = 2552) INTERPRETATION HEPATITIS B: (NOTE) (test code = 28427) INTERPRETATION HEPATITIS C: (NOTE) (test code = 79167) ACUTE HEPATITIS [id number] 00:00:00 Test Item Value Reference Range Interpretation Comments HEPATITIS A IgM (test code = NON-REACTIVE 66181) HEPATITIS B CORE IgM (test code NON-REACTIVE = 4644) HEPATITIS B SURF AG (test code = NON-REACTIVE 2739) HEPATITIS C ANTIBODY (test code NON-REACTIVE = 4675) INTERPRETATION HEPATITIS A: (NOTE) (test code = 2552) INTERPRETATION HEPATITIS B: (NOTE) (test code = 30320) INTERPRETATION HEPATITIS C: (NOTE) (test code = 89386) HPV HIGH RISK WITH GENOTYPE, [id number] 00:00:00 Test Item Value Reference Range Interpretation Comments HPV HIGH RISK INTERP (test code = NEGATIVE 81592) HPV 16 (test code = 83307) NEGATIVE HPV 18 (test code = 90691) NEGATIVE HPV, HR, OTHER GENOTYPES (test code NEGATIVE = 31965) HPV HIGH RISK WITH GENOTYPE, [id number] 00:00:00 Test Item Value Reference Range Interpretation Comments HPV HIGH RISK INTERP (test code = NEGATIVE 73463) HPV 16 (test code = 25456) NEGATIVE HPV 18 (test code = 51419) NEGATIVE HPV, HR, OTHER GENOTYPES (test code NEGATIVE = 95070) GC AND CHLAMYDIA AMPLIFIED, [id number] 00:00:00 Test Item Value Reference Range Interpretation Comments GONORRHEA, TMA (test code = 28282) NEGATIVE CHLAMYDIA, TMA (test code = 43295) NEGATIVE HIV AB/AG COMBO RFLX [id number] 00:00:00 Test Item Value Reference Range Interpretation Comments HIV 1/2 4TH GEN, RFLX CONF (test NON-REACTIVE code = 3514) GC AND CHLAMYDIA AMPLIFIED, [id number] 00:00:00 Test Item Value Reference Range Interpretation Comments GONORRHEA, TMA (test code = 62611) NEGATIVE CHLAMYDIA, TMA (test code = 53805) NEGATIVE HIV AB/AG COMBO RFLX [id number] 00:00:00 Test Item Value Reference Range Interpretation Comments HIV 1/2 4TH GEN, RFLX CONF (test NON-REACTIVE code = 3514) ACUTE HEPATITIS [id number] 00:00:00 Test Item Value Reference Range Interpretation Comments HEPATITIS A IgM (test code = NON-REACTIVE 66392) HEPATITIS B CORE IgM (test code NON-REACTIVE = 4644) HEPATITIS B SURF AG (test code = NON-REACTIVE 2739) HEPATITIS C ANTIBODY (test code NON-REACTIVE = 4675) INTERPRETATION HEPATITIS A: (NOTE) (test code = 2552) INTERPRETATION HEPATITIS B: (NOTE) (test code = 81408) INTERPRETATION HEPATITIS C: (NOTE) (test code = 70361) ACUTE HEPATITIS [id number] 00:00:00 Test Item Value Reference Range Interpretation Comments HEPATITIS A IgM (test code = NON-REACTIVE 70670) HEPATITIS B CORE IgM (test code NON-REACTIVE = 4644) HEPATITIS B SURF AG (test code = NON-REACTIVE 2739) HEPATITIS C ANTIBODY (test code NON-REACTIVE = 4675) INTERPRETATION HEPATITIS A: (NOTE) (test code = 2552) INTERPRETATION HEPATITIS B: (NOTE) (test code = 87846) INTERPRETATION HEPATITIS C: (NOTE) (test code = 29862) HPV HIGH RISK WITH GENOTYPE, [id number] 00:00:00 Test Item Value Reference Range Interpretation Comments HPV HIGH RISK INTERP (test code = NEGATIVE 12373) HPV 16 (test code = 94157) NEGATIVE HPV 18 (test code = 80495) NEGATIVE HPV, HR, OTHER GENOTYPES (test code NEGATIVE = 94130) HPV HIGH RISK WITH GENOTYPE, [id number] 00:00:00 Test Item Value Reference Range Interpretation Comments HPV HIGH RISK INTERP (test code = NEGATIVE 27820) HPV 16 (test code = 78708) NEGATIVE HPV 18 (test code = 30648) NEGATIVE HPV, HR, OTHER GENOTYPES (test code NEGATIVE = 93521) GC AND CHLAMYDIA AMPLIFIED, [id number] 00:00:00 Test Item Value Reference Range Interpretation Comments GONORRHEA, TMA (test code = 17084) NEGATIVE CHLAMYDIA, TMA (test code = 44741) NEGATIVE HIV AB/AG COMBO RFLX [id number] 00:00:00 Test Item Value Reference Range Interpretation Comments HIV 1/2 4TH GEN, RFLX CONF (test NON-REACTIVE code = 3514) HIV AB/AG COMBO RFLX [id number] 00:00:00 Test Item Value Reference Range Interpretation Comments HIV 1/2 4TH GEN, RFLX CONF (test NON-REACTIVE code = 3514) GC AND CHLAMYDIA AMPLIFIED, [id number] 00:00:00 Test Item Value Reference Range Interpretation Comments GONORRHEA, TMA (test code = 70815) NEGATIVE CHLAMYDIA, TMA (test code = 17825) NEGATIVE ACUTE HEPATITIS [id number] 00:00:00 Test Item Value Reference Range Interpretation Comments HEPATITIS A IgM (test code = NON-REACTIVE 88779) HEPATITIS B CORE IgM (test code NON-REACTIVE = 4644) HEPATITIS B SURF AG (test code = NON-REACTIVE 2739) HEPATITIS C ANTIBODY (test code NON-REACTIVE = 4675) INTERPRETATION HEPATITIS A: (NOTE) (test code = 2552) INTERPRETATION HEPATITIS B: (NOTE) (test code = 45137) INTERPRETATION HEPATITIS C: (NOTE) (test code = 36048) ACUTE HEPATITIS [id number] 00:00:00 Test Item Value Reference Range Interpretation Comments HEPATITIS A IgM (test code = NON-REACTIVE 92380) HEPATITIS B CORE IgM (test code NON-REACTIVE = 4644) HEPATITIS B SURF AG (test code = NON-REACTIVE 2739) HEPATITIS C ANTIBODY (test code NON-REACTIVE = 4675) INTERPRETATION HEPATITIS A: (NOTE) (test code = 2552) INTERPRETATION HEPATITIS B: (NOTE) (test code = 63091) INTERPRETATION HEPATITIS C: (NOTE) (test code = 94149) HPV HIGH RISK WITH GENOTYPE, [id number] 00:00:00 Test Item Value Reference Range Interpretation Comments HPV HIGH RISK INTERP (test code = NEGATIVE 54863) HPV 16 (test code = 53835) NEGATIVE HPV 18 (test code = 35598) NEGATIVE HPV, HR, OTHER GENOTYPES (test code NEGATIVE = 62580) HPV HIGH RISK WITH GENOTYPE, [id number] 00:00:00 Test Item Value Reference Range Interpretation Comments HPV HIGH RISK INTERP (test code = NEGATIVE 07840) HPV 16 (test code = 30334) NEGATIVE HPV 18 (test code = 98934) NEGATIVE HPV, HR, OTHER GENOTYPES (test code NEGATIVE = 39360) GC AND CHLAMYDIA AMPLIFIED, [id number] 00:00:00 Test Item Value Reference Range Interpretation Comments GONORRHEA, TMA (test code = 48803) NEGATIVE CHLAMYDIA, TMA (test code = 49729) NEGATIVE HIV AB/AG COMBO RFLX [id number] 00:00:00 Test Item Value Reference Range Interpretation Comments HIV 1/2 4TH GEN, RFLX CONF (test NON-REACTIVE code = 3514) GC AND CHLAMYDIA AMPLIFIED, [id number] 00:00:00 Test Item Value Reference Range Interpretation Comments GONORRHEA, TMA (test code = 64613) NEGATIVE CHLAMYDIA, TMA (test code = 11627) NEGATIVE HIV AB/AG COMBO RFLX [id number] 00:00:00 Test Item Value Reference Range Interpretation Comments HIV 1/2 4TH GEN, RFLX CONF (test NON-REACTIVE code = 3514) ACUTE HEPATITIS [id number] 00:00:00 Test Item Value Reference Range Interpretation Comments HEPATITIS A IgM (test code = NON-REACTIVE 41112) HEPATITIS B CORE IgM (test code NON-REACTIVE = 4644) HEPATITIS B SURF AG (test code = NON-REACTIVE 2739) HEPATITIS C ANTIBODY (test code NON-REACTIVE = 4675) INTERPRETATION HEPATITIS A: (NOTE) (test code = 2552) INTERPRETATION HEPATITIS B: (NOTE) (test code = 88259) INTERPRETATION HEPATITIS C: (NOTE) (test code = 68603) ACUTE HEPATITIS [id number] 00:00:00 Test Item Value Reference Range Interpretation Comments HEPATITIS A IgM (test code = NON-REACTIVE 80266) HEPATITIS B CORE IgM (test code NON-REACTIVE = 4644) HEPATITIS B SURF AG (test code = NON-REACTIVE 2739) HEPATITIS C ANTIBODY (test code NON-REACTIVE = 4675) INTERPRETATION HEPATITIS A: (NOTE) (test code = 2552) INTERPRETATION HEPATITIS B: (NOTE) (test code = 69070) INTERPRETATION HEPATITIS C: (NOTE) (test code = 57560) HPV HIGH RISK WITH GENOTYPE, [id number] 00:00:00 Test Item Value Reference Range Interpretation Comments HPV HIGH RISK INTERP (test code = NEGATIVE 55206) HPV 16 (test code = 69575) NEGATIVE HPV 18 (test code = 62571) NEGATIVE HPV, HR, OTHER GENOTYPES (test code NEGATIVE = 51386) HPV HIGH RISK WITH GENOTYPE, [id number] 00:00:00 Test Item Value Reference Range Interpretation Comments HPV HIGH RISK INTERP (test code = NEGATIVE 97603) HPV 16 (test code = 07460) NEGATIVE HPV 18 (test code = 91164) NEGATIVE HPV, HR, OTHER GENOTYPES (test code NEGATIVE = 69710) [id number] 23:27:07 Test Item Value Reference Range Interpretation Comments RPR RESULT (test code = NON-REACTIVE NON-REACTIVE 3501) RPR TITER (test code = 3500) NOT INDIC. TITER NOT INDIC. LIPID [id number] 21:36:51 Test Item Value Reference Range Interpretation Comments CHOLESTEROL (test 227 MG/DL <200 H code = 2210) TRIGLYCERIDES (test 89 MG/DL <150 code = 2232) HDL CHOLESTEROL (test 77 MG/DL >39 code = 2220) CALC LDL CHOL (test 131 MG/DL <100 H NOTE: C ALCULATED LDL code = 2237) IS BASED ON ALAN-HUFF METHOD WHICHINCLUDES ADJUSTABLE TRIGLYCERIDE:VL DL CHOLESTEROL RAT IO.THIS FACTOR VARIES B Y MEASURED TRIGLY CERIDE AND NON-HDLCHOL ESTEROL CONCENTRATIONS WITH INCREASED CALCU LATED LDL SEENIN HIGH ER TRIGLYCERIDE OR LOWER NON-HDL SPECIME NS. FOR MOREINFORMATION , SEE CLIENT ANNOUNCE MENT AT [email or web address] RISK RATIO LDL/HDL 1.70 RATIO <3.22 (test code = 2238) COMPREHENSIVE METABOLIC [id number] 21:36:51 Test Item Value Reference Range Interpretation Comments GLUCOSE (test code = 84 MG/DL 70-99 2216) BUN (test code = 15 MG/DL 6-20 2207) CREATININE (test 0.86 MG/DL 0.60-1.30 code = 221) eGFR (2020 CKD-EPI) 78 ML/MIN/1.73 >60 (test code = 10089) CALC BUN/CREAT (test 17 RATIO 6-28 code = 2235) SODIUM (test code = 144 MEQ/L 282-245 8511) POTASSIUM (test code 4.7 MEQ/L 3.5-5.4 = 2227) CHLORIDE (test code 103 MEQ/L 95-107 = 2214) CARBON DIOXIDE (test 16 MEQ/L 19-31 L code = 2206) CALCIUM (test code = 10.1 MG/DL 8.5-10.5 2208) PROTEIN, TOTAL (test 8.4 G/DL 6.1-8.3 H code = 2229) ALBUMIN (test code = 5.0 G/DL 3.5-5.2 2200) CALC GLOBULIN (test 3.4 G/DL 1.9-3.7 code = 2240) CALC A/G RATIO (test 1.5 RATIO 1.0-2.6 code = 2234) BILIRUBIN, TOTAL 0.5 MG/DL See_Comment [Automated message] (test code = 2207) The syste m which generated this result transmit trice reference range : <=1.2. The refe rence range was not u sed to interpret th is result as normal/abnormal . ALKALINE PHOSPHATASE 87 U/L 40-136 (test code = 2203) AST (test code = 24 U/L 9-40 2218) ALT (test code = 16 U/L 40 2218) TSH, THIRD [id number] 03:53:40 Test Item Value Reference Range Interpretation Comments TSH, THIRD 1.430 UIU/ML 0.400-4.100 UNLESS OTHERW ISE GENERATION (test INDICATED, ALL TESTING code = 2821) PERFORMED [facility], [place]. [address] [facility] [place] [address] [facility] DIRECTOR: FÁTIMA DANIEL M.D. [place] NUMBER [id number] CAP ACCREDITATION N O. [id number] CBC W/AUTO DIFF WITH [id number] 03:42:06 Test Item Value Reference Range Interpretation Comments WBC (test code = 13.1 K/UL 3.5-11.0 H 1001) RBC (test code = 4.79 M/UL 3.80-5.40 1002) HEMOGLOBIN (test code 14.7 G/DL 11.5-15.5 = 1003) HEMATOCRIT (test code 43.7 % 34.0-45.0 = 1004) MCV (test code = 91.2 fL 80.0-99.0 1005) MCH (test code = 30.7 PG 25.0-33.0 1006) MCHC (test code = 33.6 G/DL 31.0-36.0 1007) RDW (test code = 12.8 % 11.5-15.0 1038) NEUTROPHILS (test 72.5 % code = 1008) LYMPHOCYTES (test 19.3 % code = 1010) MONOCYTES (test code 5.7 % = 1011) EOSINOPHILS (test 1.5 % code = 1012) BASOPHILS (test code 0.5 % = 1013) IMMATURE GRANULOCYTES 0.5 % (test code = 1036) NUCLEATED RBCS (test 0.0 /100 WBC'S See_Comment [Aut omated code = 1065) message] The sy stem which generated this result transmitted reference range : 0.0. The refere nce range was not u sed to interpret th is result as normal/abnormal . PLATELET COUNT (test 343 K/UL 130-400 code = 1015) ABSOLUTE NEUTROPHILS 9.50 K/UL 1.50-7.50 H (test code = 1066) ABSOLUTE LYMPHOCYTES 2.53 K/UL 1.00-4.00 (test code = 1067) ABSOLUTE MONOCYTES 0.74 K/UL 0.20-1.00 (test code = 1068) ABSOLUTE EOSINOPHILS 0.20 K/UL 0.00-0.50 (test code = 1040) ABSOLUTE BASOPHILS 0.06 K/UL 0.00-0.20 (test code = 1069) ABS IMMATURE 0.06 K/UL 0.00-0.10 GRANULOCYTES (test code = 1020) ABS NUCLEATED RBCS 0.00 K/UL 0.00-0.11 (test code = 14150) [id number] 00:00:00 Test Item Value Reference Range Interpretation Comments RPR RESULT (test code = NON-REACTIVE 3501) RPR TITER (test code = 3500) NOT INDIC. TITER [id number] 00:00:00 Test Item Value Reference Range Interpretation Comments RPR RESULT (test code = NON-REACTIVE 3501) RPR TITER (test code = 3500) NOT INDIC. TITER [id number] 00:00:00 Test Item Value Reference Range Interpretation Comments RPR RESULT (test code = NON-REACTIVE 3501) RPR TITER (test code = 3500) NOT INDIC. TITER CBC W/AUTO [id number] 00:00:00 Test Item Value Reference Range Interpretation Comments WBC (test code = 1001) 13.1 K/UL RBC (test code = 1002) 4.79 M/UL HEMOGLOBIN (test code = 1003) 14.7 G/DL HEMATOCRIT (test code = 1004) 43.7 % MCV (test code = 1005) 91.2 fL MCH (test code = 1006) 30.7 PG MCHC (test code = 1007) 33.6 G/DL RDW (test code = 1038) 12.8 % NEUTROPHILS (test code = 1008) 72.5 % LYMPHOCYTES (test code = 1010) 19.3 % MONOCYTES (test code = 1011) 5.7 % EOSINOPHILS (test code = 1012) 1.5 % BASOPHILS (test code = 1013) 0.5 % IMMATURE GRANULOCYTES (test 0.5 % code = 1036) NUCLEATED RBCS (test code = 0.0 /100WBC'S 1065) PLATELET COUNT (test code = 343 K/UL 1015) ABSOLUTE NEUTROPHILS (test code 9.50 K/UL = 1066) ABSOLUTE LYMPHOCYTES (test code 2.53 K/UL = 1067) ABSOLUTE MONOCYTES (test code = 0.74 K/UL 1068) ABSOLUTE EOSINOPHILS (test code 0.20 K/UL = 1040) ABSOLUTE BASOPHILS (test code = 0.06 K/UL 1069) ABS IMMATURE GRANULOCYTES (test 0.06 K/UL code = 1020) ABS NUCLEATED RBCS (test code = 0.00 K/UL 34893) CBC W/AUTO [id number] 00:00:00 Test Item Value Reference Range Interpretation Comments WBC (test code = 1001) 13.1 K/UL RBC (test code = 1002) 4.79 M/UL HEMOGLOBIN (test code = 1003) 14.7 G/DL HEMATOCRIT (test code = 1004) 43.7 % MCV (test code = 1005) 91.2 fL MCH (test code = 1006) 30.7 PG MCHC (test code = 1007) 33.6 G/DL RDW (test code = 1038) 12.8 % NEUTROPHILS (test code = 1008) 72.5 % LYMPHOCYTES (test code = 1010) 19.3 % MONOCYTES (test code = 1011) 5.7 % EOSINOPHILS (test code = 1012) 1.5 % BASOPHILS (test code = 1013) 0.5 % IMMATURE GRANULOCYTES (test 0.5 % code = 1036) NUCLEATED RBCS (test code = 0.0 /100WBC'S 1065) PLATELET COUNT (test code = 343 K/UL 1015) ABSOLUTE NEUTROPHILS (test code 9.50 K/UL = 1066) ABSOLUTE LYMPHOCYTES (test code 2.53 K/UL = 1067) ABSOLUTE MONOCYTES (test code = 0.74 K/UL 1068) ABSOLUTE EOSINOPHILS (test code 0.20 K/UL = 1040) ABSOLUTE BASOPHILS (test code = 0.06 K/UL 1069) ABS IMMATURE GRANULOCYTES (test 0.06 K/UL code = 1020) ABS NUCLEATED RBCS (test code = 0.00 K/UL 09847) CBC W/AUTO [id number] 00:00:00 Test Item Value Reference Range Interpretation Comments WBC (test code = 1001) 13.1 K/UL RBC (test code = 1002) 4.79 M/UL HEMOGLOBIN (test code = 1003) 14.7 G/DL HEMATOCRIT (test code = 1004) 43.7 % MCV (test code = 1005) 91.2 fL MCH (test code = 1006) 30.7 PG MCHC (test code = 1007) 33.6 G/DL RDW (test code = 1038) 12.8 % NEUTROPHILS (test code = 1008) 72.5 % LYMPHOCYTES (test code = 1010) 19.3 % MONOCYTES (test code = 1011) 5.7 % EOSINOPHILS (test code = 1012) 1.5 % BASOPHILS (test code = 1013) 0.5 % IMMATURE GRANULOCYTES (test 0.5 % code = 1036) NUCLEATED RBCS (test code = 0.0 /100WBC'S 1065) PLATELET COUNT (test code = 343 K/UL 1015) ABSOLUTE NEUTROPHILS (test code 9.50 K/UL = 1066) ABSOLUTE LYMPHOCYTES (test code 2.53 K/UL = 1067) ABSOLUTE MONOCYTES (test code = 0.74 K/UL 1068) ABSOLUTE EOSINOPHILS (test code 0.20 K/UL = 1040) ABSOLUTE BASOPHILS (test code = 0.06 K/UL 1069) ABS IMMATURE GRANULOCYTES (test 0.06 K/UL code = 1020) ABS NUCLEATED RBCS (test code = 0.00 K/UL 81991) LIPID [id number] 00:00:00 Test Item Value Reference Range Interpretation Comments CHOLESTEROL (test code = 2210) 227 MG/DL TRIGLYCERIDES (test code = 2232) 89 MG/DL HDL CHOLESTEROL (test code = 2220) 77 MG/DL CALC LDL CHOL (test code = 2237) 131 MG/DL RISK RATIO LDL/HDL (test code = 1.70 RATIO 2238) LIPID [id number] 00:00:00 Test Item Value Reference Range Interpretation Comments CHOLESTEROL (test code = 2210) 227 MG/DL TRIGLYCERIDES (test code = 2232) 89 MG/DL HDL CHOLESTEROL (test code = 2220) 77 MG/DL CALC LDL CHOL (test code = 2237) 131 MG/DL RISK RATIO LDL/HDL (test code = 1.70 RATIO 2238) COMPREHENSIVE METABOLIC [id number] 00:00:00 Test Item Value Reference Range Interpretation Comments GLUCOSE (test code = 2217) 84 MG/DL BUN (test code = 2208) 15 MG/DL CREATININE (test code = 2214) 0.86 MG/DL eGFR (2020 CKD-EPI) (test code 78 ML/MIN/1.73 = 20090) CALC BUN/CREAT (test code = 17 RATIO 2235) SODIUM (test code = 2231) 144 MEQ/L POTASSIUM (test code = 2228) 4.7 MEQ/L CHLORIDE (test code = 2215) 103 MEQ/L CARBON DIOXIDE (test code = 16 MEQ/L 2205) CALCIUM (test code = 2209) 10.1 MG/DL PROTEIN, TOTAL (test code = 8.4 G/DL 2228) ALBUMIN (test code = 2201) 5.0 G/DL CALC GLOBULIN (test code = 3.4 G/DL 2240) CALC A/G RATIO (test code = 1.5 RATIO 2234) BILIRUBIN, TOTAL (test code = 0.5 MG/DL 2206) ALKALINE PHOSPHATASE (test 87 U/L code = 2204) AST (test code = 2218) 24 U/L ALT (test code = 2219) 16 U/L COMPREHENSIVE METABOLIC [id number] 00:00:00 Test Item Value Reference Range Interpretation Comments GLUCOSE (test code = 2217) 84 MG/DL BUN (test code = 2208) 15 MG/DL CREATININE (test code = 2214) 0.86 MG/DL eGFR (2020 CKD-EPI) (test code 78 ML/MIN/1.73 = 39532) CALC BUN/CREAT (test code = 17 RATIO 2235) SODIUM (test code = 2231) 144 MEQ/L POTASSIUM (test code = 2228) 4.7 MEQ/L CHLORIDE (test code = 2215) 103 MEQ/L CARBON DIOXIDE (test code = 16 MEQ/L 2205) CALCIUM (test code = 2209) 10.1 MG/DL PROTEIN, TOTAL (test code = 8.4 G/DL 2228) ALBUMIN (test code = 2201) 5.0 G/DL CALC GLOBULIN (test code = 3.4 G/DL 2240) CALC A/G RATIO (test code = 1.5 RATIO 2234) BILIRUBIN, TOTAL (test code = 0.5 MG/DL 2206) ALKALINE PHOSPHATASE (test 87 U/L code = 2204) AST (test code = 2218) 24 U/L ALT (test code = 2219) 16 U/L [id number] 00:00:00 Test Item Value Reference Range Interpretation Comments TSH, THIRD GENERATION (test code 1.430 UIU/ML = 2821) [id number] 00:00:00 Test Item Value Reference Range Interpretation Comments TSH, THIRD GENERATION (test code 1.430 UIU/ML = 2821) [id number] 00:00:00 Test Item Value Reference Range Interpretation Comments TSH, THIRD GENERATION (test code 1.430 UIU/ML = 2821) [id number] 00:00:00 Test Item Value Reference Range Interpretation Comments RPR RESULT (test code = NON-REACTIVE 3501) RPR TITER (test code = 3500) NOT INDIC. TITER [id number] 00:00:00 Test Item Value Reference Range Interpretation Comments RPR RESULT (test code = NON-REACTIVE 3501) RPR TITER (test code = 3500) NOT INDIC. TITER [id number] 00:00:00 Test Item Value Reference Range Interpretation Comments RPR RESULT (test code = NON-REACTIVE 3501) RPR TITER (test code = 3500) NOT INDIC. TITER CBC W/AUTO [id number] 00:00:00 Test Item Value Reference Range Interpretation Comments WBC (test code = 1001) 13.1 K/UL RBC (test code = 1002) 4.79 M/UL HEMOGLOBIN (test code = 1003) 14.7 G/DL HEMATOCRIT (test code = 1004) 43.7 % MCV (test code = 1005) 91.2 fL MCH (test code = 1006) 30.7 PG MCHC (test code = 1007) 33.6 G/DL RDW (test code = 1038) 12.8 % NEUTROPHILS (test code = 1008) 72.5 % LYMPHOCYTES (test code = 1010) 19.3 % MONOCYTES (test code = 1011) 5.7 % EOSINOPHILS (test code = 1012) 1.5 % BASOPHILS (test code = 1013) 0.5 % IMMATURE GRANULOCYTES (test 0.5 % code = 1036) NUCLEATED RBCS (test code = 0.0 /100WBC'S 1065) PLATELET COUNT (test code = 343 K/UL 1015) ABSOLUTE NEUTROPHILS (test code 9.50 K/UL = 1066) ABSOLUTE LYMPHOCYTES (test code 2.53 K/UL = 1067) ABSOLUTE MONOCYTES (test code = 0.74 K/UL 1068) ABSOLUTE EOSINOPHILS (test code 0.20 K/UL = 1040) ABSOLUTE BASOPHILS (test code = 0.06 K/UL 1069) ABS IMMATURE GRANULOCYTES (test 0.06 K/UL code = 1020) ABS NUCLEATED RBCS (test code = 0.00 K/UL 23671) CBC W/AUTO [id number] 00:00:00 Test Item Value Reference Range Interpretation Comments WBC (test code = 1001) 13.1 K/UL RBC (test code = 1002) 4.79 M/UL HEMOGLOBIN (test code = 1003) 14.7 G/DL HEMATOCRIT (test code = 1004) 43.7 % MCV (test code = 1005) 91.2 fL MCH (test code = 1006) 30.7 PG MCHC (test code = 1007) 33.6 G/DL RDW (test code = 1038) 12.8 % NEUTROPHILS (test code = 1008) 72.5 % LYMPHOCYTES (test code = 1010) 19.3 % MONOCYTES (test code = 1011) 5.7 % EOSINOPHILS (test code = 1012) 1.5 % BASOPHILS (test code = 1013) 0.5 % IMMATURE GRANULOCYTES (test 0.5 % code = 1036) NUCLEATED RBCS (test code = 0.0 /100WBC'S 1065) PLATELET COUNT (test code = 343 K/UL 1015) ABSOLUTE NEUTROPHILS (test code 9.50 K/UL = 1066) ABSOLUTE LYMPHOCYTES (test code 2.53 K/UL = 1067) ABSOLUTE MONOCYTES (test code = 0.74 K/UL 1068) ABSOLUTE EOSINOPHILS (test code 0.20 K/UL = 1040) ABSOLUTE BASOPHILS (test code = 0.06 K/UL 1069) ABS IMMATURE GRANULOCYTES (test 0.06 K/UL code = 1020) ABS NUCLEATED RBCS (test code = 0.00 K/UL 70921) CBC W/AUTO [id number] 00:00:00 Test Item Value Reference Range Interpretation Comments WBC (test code = 1001) 13.1 K/UL RBC (test code = 1002) 4.79 M/UL HEMOGLOBIN (test code = 1003) 14.7 G/DL HEMATOCRIT (test code = 1004) 43.7 % MCV (test code = 1005) 91.2 fL MCH (test code = 1006) 30.7 PG MCHC (test code = 1007) 33.6 G/DL RDW (test code = 1038) 12.8 % NEUTROPHILS (test code = 1008) 72.5 % LYMPHOCYTES (test code = 1010) 19.3 % MONOCYTES (test code = 1011) 5.7 % EOSINOPHILS (test code = 1012) 1.5 % BASOPHILS (test code = 1013) 0.5 % IMMATURE GRANULOCYTES (test 0.5 % code = 1036) NUCLEATED RBCS (test code = 0.0 /100WBC'S 1065) PLATELET COUNT (test code = 343 K/UL 1015) ABSOLUTE NEUTROPHILS (test code 9.50 K/UL = 1066) ABSOLUTE LYMPHOCYTES (test code 2.53 K/UL = 1067) ABSOLUTE MONOCYTES (test code = 0.74 K/UL 1068) ABSOLUTE EOSINOPHILS (test code 0.20 K/UL = 1040) ABSOLUTE BASOPHILS (test code = 0.06 K/UL 1069) ABS IMMATURE GRANULOCYTES (test 0.06 K/UL code = 1020) ABS NUCLEATED RBCS (test code = 0.00 K/UL 11440) LIPID [id number] 00:00:00 Test Item Value Reference Range Interpretation Comments CHOLESTEROL (test code = 2210) 227 MG/DL TRIGLYCERIDES (test code = 2232) 89 MG/DL HDL CHOLESTEROL (test code = 2220) 77 MG/DL CALC LDL CHOL (test code = 2237) 131 MG/DL RISK RATIO LDL/HDL (test code = 1.70 RATIO 2238) LIPID [id number] 00:00:00 Test Item Value Reference Range Interpretation Comments CHOLESTEROL (test code = 2210) 227 MG/DL TRIGLYCERIDES (test code = 2232) 89 MG/DL HDL CHOLESTEROL (test code = 2220) 77 MG/DL CALC LDL CHOL (test code = 2237) 131 MG/DL RISK RATIO LDL/HDL (test code = 1.70 RATIO 2238) COMPREHENSIVE METABOLIC [id number] 00:00:00 Test Item Value Reference Range Interpretation Comments GLUCOSE (test code = 2217) 84 MG/DL BUN (test code = 2208) 15 MG/DL CREATININE (test code = 2214) 0.86 MG/DL eGFR (2020 CKD-EPI) (test code 78 ML/MIN/1.73 = 76207) CALC BUN/CREAT (test code = 17 RATIO 2235) SODIUM (test code = 2231) 144 MEQ/L POTASSIUM (test code = 2228) 4.7 MEQ/L CHLORIDE (test code = 2215) 103 MEQ/L CARBON DIOXIDE (test code = 16 MEQ/L 2206) CALCIUM (test code = 2209) 10.1 MG/DL PROTEIN, TOTAL (test code = 8.4 G/DL 2229) ALBUMIN (test code = 2201) 5.0 G/DL CALC GLOBULIN (test code = 3.4 G/DL 2240) CALC A/G RATIO (test code = 1.5 RATIO 2234) BILIRUBIN, TOTAL (test code = 0.5 MG/DL 2206) ALKALINE PHOSPHATASE (test 87 U/L code = 2204) AST (test code = 2218) 24 U/L ALT (test code = 2219) 16 U/L COMPREHENSIVE METABOLIC [id number] 00:00:00 Test Item Value Reference Range Interpretation Comments GLUCOSE (test code = 2217) 84 MG/DL BUN (test code = 2208) 15 MG/DL CREATININE (test code = 2214) 0.86 MG/DL eGFR (2020 CKD-EPI) (test code 78 ML/MIN/1.73 = 00375) CALC BUN/CREAT (test code = 17 RATIO 2235) SODIUM (test code = 2231) 144 MEQ/L POTASSIUM (test code = 2228) 4.7 MEQ/L CHLORIDE (test code = 2215) 103 MEQ/L CARBON DIOXIDE (test code = 16 MEQ/L 6) CALCIUM (test code = 2209) 10.1 MG/DL PROTEIN, TOTAL (test code = 8.4 G/DL 2229) ALBUMIN (test code = 2201) 5.0 G/DL CALC GLOBULIN (test code = 3.4 G/DL 2240) CALC A/G RATIO (test code = 1.5 RATIO 2234) BILIRUBIN, TOTAL (test code = 0.5 MG/DL 220) ALKALINE PHOSPHATASE (test 87 U/L code = 2204) AST (test code = 2218) 24 U/L ALT (test code = 2219) 16 U/L [id number] 00:00:00 Test Item Value Reference Range Interpretation Comments TSH, THIRD GENERATION (test code 1.430 UIU/ML = 2821) [id number] 00:00:00 Test Item Value Reference Range Interpretation Comments TSH, THIRD GENERATION (test code 1.430 UIU/ML = 2821) [id number] 00:00:00 Test Item Value Reference Range Interpretation Comments TSH, THIRD GENERATION (test code 1.430 UIU/ML = 2821) [id number] 00:00:00 Test Item Value Reference Range Interpretation Comments RPR RESULT (test code = NON-REACTIVE 3501) RPR TITER (test code = 3500) NOT INDIC. TITER [id number] 00:00:00 Test Item Value Reference Range Interpretation Comments RPR RESULT (test code = NON-REACTIVE 3501) RPR TITER (test code = 3500) NOT INDIC. TITER [id number] 00:00:00 Test Item Value Reference Range Interpretation Comments RPR RESULT (test code = NON-REACTIVE 3501) RPR TITER (test code = 3500) NOT INDIC. TITER CBC W/AUTO [id number] 00:00:00 Test Item Value Reference Range Interpretation Comments WBC (test code = 1001) 13.1 K/UL RBC (test code = 1002) 4.79 M/UL HEMOGLOBIN (test code = 1003) 14.7 G/DL HEMATOCRIT (test code = 1004) 43.7 % MCV (test code = 1005) 91.2 fL MCH (test code = 1006) 30.7 PG MCHC (test code = 1007) 33.6 G/DL RDW (test code = 1038) 12.8 % NEUTROPHILS (test code = 1008) 72.5 % LYMPHOCYTES (test code = 1010) 19.3 % MONOCYTES (test code = 1011) 5.7 % EOSINOPHILS (test code = 1012) 1.5 % BASOPHILS (test code = 1013) 0.5 % IMMATURE GRANULOCYTES (test 0.5 % code = 1036) NUCLEATED RBCS (test code = 0.0 /100WBC'S 1065) PLATELET COUNT (test code = 343 K/UL 1015) ABSOLUTE NEUTROPHILS (test code 9.50 K/UL = 1066) ABSOLUTE LYMPHOCYTES (test code 2.53 K/UL = 1067) ABSOLUTE MONOCYTES (test code = 0.74 K/UL 1068) ABSOLUTE EOSINOPHILS (test code 0.20 K/UL = 1040) ABSOLUTE BASOPHILS (test code = 0.06 K/UL 1069) ABS IMMATURE GRANULOCYTES (test 0.06 K/UL code = 1020) ABS NUCLEATED RBCS (test code = 0.00 K/UL 77317) CBC W/AUTO [id number] 00:00:00 Test Item Value Reference Range Interpretation Comments WBC (test code = 1001) 13.1 K/UL RBC (test code = 1002) 4.79 M/UL HEMOGLOBIN (test code = 1003) 14.7 G/DL HEMATOCRIT (test code = 1004) 43.7 % MCV (test code = 1005) 91.2 fL MCH (test code = 1006) 30.7 PG MCHC (test code = 1007) 33.6 G/DL RDW (test code = 1038) 12.8 % NEUTROPHILS (test code = 1008) 72.5 % LYMPHOCYTES (test code = 1010) 19.3 % MONOCYTES (test code = 1011) 5.7 % EOSINOPHILS (test code = 1012) 1.5 % BASOPHILS (test code = 1013) 0.5 % IMMATURE GRANULOCYTES (test 0.5 % code = 1036) NUCLEATED RBCS (test code = 0.0 /100WBC'S 1065) PLATELET COUNT (test code = 343 K/UL 1015) ABSOLUTE NEUTROPHILS (test code 9.50 K/UL = 1066) ABSOLUTE LYMPHOCYTES (test code 2.53 K/UL = 1067) ABSOLUTE MONOCYTES (test code = 0.74 K/UL 1068) ABSOLUTE EOSINOPHILS (test code 0.20 K/UL = 1040) ABSOLUTE BASOPHILS (test code = 0.06 K/UL 1069) ABS IMMATURE GRANULOCYTES (test 0.06 K/UL code = 1020) ABS NUCLEATED RBCS (test code = 0.00 K/UL 45354) CBC W/AUTO [id number] 00:00:00 Test Item Value Reference Range Interpretation Comments WBC (test code = 1001) 13.1 K/UL RBC (test code = 1002) 4.79 M/UL HEMOGLOBIN (test code = 1003) 14.7 G/DL HEMATOCRIT (test code = 1004) 43.7 % MCV (test code = 1005) 91.2 fL MCH (test code = 1006) 30.7 PG MCHC (test code = 1007) 33.6 G/DL RDW (test code = 1038) 12.8 % NEUTROPHILS (test code = 1008) 72.5 % LYMPHOCYTES (test code = 1010) 19.3 % MONOCYTES (test code = 1011) 5.7 % EOSINOPHILS (test code = 1012) 1.5 % BASOPHILS (test code = 1013) 0.5 % IMMATURE GRANULOCYTES (test 0.5 % code = 1036) NUCLEATED RBCS (test code = 0.0 /100WBC'S 1065) PLATELET COUNT (test code = 343 K/UL 1015) ABSOLUTE NEUTROPHILS (test code 9.50 K/UL = 1066) ABSOLUTE LYMPHOCYTES (test code 2.53 K/UL = 1067) ABSOLUTE MONOCYTES (test code = 0.74 K/UL 1068) ABSOLUTE EOSINOPHILS (test code 0.20 K/UL = 1040) ABSOLUTE BASOPHILS (test code = 0.06 K/UL 1069) ABS IMMATURE GRANULOCYTES (test 0.06 K/UL code = 1020) ABS NUCLEATED RBCS (test code = 0.00 K/UL 41746) LIPID [id number] 00:00:00 Test Item Value Reference Range Interpretation Comments CHOLESTEROL (test code = 2210) 227 MG/DL TRIGLYCERIDES (test code = 2232) 89 MG/DL HDL CHOLESTEROL (test code = 2220) 77 MG/DL CALC LDL CHOL (test code = 2237) 131 MG/DL RISK RATIO LDL/HDL (test code = 1.70 RATIO 2238) LIPID [id number] 00:00:00 Test Item Value Reference Range Interpretation Comments CHOLESTEROL (test code = 2210) 227 MG/DL TRIGLYCERIDES (test code = 2232) 89 MG/DL HDL CHOLESTEROL (test code = 2220) 77 MG/DL CALC LDL CHOL (test code = 2237) 131 MG/DL RISK RATIO LDL/HDL (test code = 1.70 RATIO 2238) COMPREHENSIVE METABOLIC [id number] 00:00:00 Test Item Value Reference Range Interpretation Comments GLUCOSE (test code = 2217) 84 MG/DL BUN (test code = 2208) 15 MG/DL CREATININE (test code = 2214) 0.86 MG/DL eGFR (2020 CKD-EPI) (test code 78 ML/MIN/1.73 = 24264) CALC BUN/CREAT (test code = 17 RATIO 2235) SODIUM (test code = 2231) 144 MEQ/L POTASSIUM (test code = 2228) 4.7 MEQ/L CHLORIDE (test code = 2215) 103 MEQ/L CARBON DIOXIDE (test code = 16 MEQ/L 2206) CALCIUM (test code = 2209) 10.1 MG/DL PROTEIN, TOTAL (test code = 8.4 G/DL 2228) ALBUMIN (test code = 2201) 5.0 G/DL CALC GLOBULIN (test code = 3.4 G/DL 2240) CALC A/G RATIO (test code = 1.5 RATIO 2234) BILIRUBIN, TOTAL (test code = 0.5 MG/DL 2206) ALKALINE PHOSPHATASE (test 87 U/L code = 2204) AST (test code = 2218) 24 U/L ALT (test code = 2219) 16 U/L COMPREHENSIVE METABOLIC [id number] 00:00:00 Test Item Value Reference Range Interpretation Comments GLUCOSE (test code = 2217) 84 MG/DL BUN (test code = 2208) 15 MG/DL CREATININE (test code = 2214) 0.86 MG/DL eGFR (2020 CKD-EPI) (test code 78 ML/MIN/1.73 = 07400) CALC BUN/CREAT (test code = 17 RATIO 2235) SODIUM (test code = 2231) 144 MEQ/L POTASSIUM (test code = 2228) 4.7 MEQ/L CHLORIDE (test code = 2215) 103 MEQ/L CARBON DIOXIDE (test code = 16 MEQ/L 6) CALCIUM (test code = 2209) 10.1 MG/DL PROTEIN, TOTAL (test code = 8.4 G/DL 2228) ALBUMIN (test code = 2201) 5.0 G/DL CALC GLOBULIN (test code = 3.4 G/DL 2240) CALC A/G RATIO (test code = 1.5 RATIO 2234) BILIRUBIN, TOTAL (test code = 0.5 MG/DL 2206) ALKALINE PHOSPHATASE (test 87 U/L code = 2204) AST (test code = 2218) 24 U/L ALT (test code = 2219) 16 U/L [id number] 00:00:00 Test Item Value Reference Range Interpretation Comments TSH, THIRD GENERATION (test code 1.430 UIU/ML = 2821) [id number] 00:00:00 Test Item Value Reference Range Interpretation Comments TSH, THIRD GENERATION (test code 1.430 UIU/ML = 2821) [id number] 00:00:00 Test Item Value Reference Range Interpretation Comments TSH, THIRD GENERATION (test code 1.430 UIU/ML = 2821) [id number] 00:00:00 Test Item Value Reference Range Interpretation Comments RPR RESULT (test code = NON-REACTIVE 3501) RPR TITER (test code = 3500) NOT INDIC. TITER [id number] 00:00:00 Test Item Value Reference Range Interpretation Comments RPR RESULT (test code = NON-REACTIVE 3501) RPR TITER (test code = 3500) NOT INDIC. TITER [id number] 00:00:00 Test Item Value Reference Range Interpretation Comments RPR RESULT (test code = NON-REACTIVE 3501) RPR TITER (test code = 3500) NOT INDIC. TITER CBC W/AUTO [id number] 00:00:00 Test Item Value Reference Range Interpretation Comments WBC (test code = 1001) 13.1 K/UL RBC (test code = 1002) 4.79 M/UL HEMOGLOBIN (test code = 1003) 14.7 G/DL HEMATOCRIT (test code = 1004) 43.7 % MCV (test code = 1005) 91.2 fL MCH (test code = 1006) 30.7 PG MCHC (test code = 1007) 33.6 G/DL RDW (test code = 1038) 12.8 % NEUTROPHILS (test code = 1008) 72.5 % LYMPHOCYTES (test code = 1010) 19.3 % MONOCYTES (test code = 1011) 5.7 % EOSINOPHILS (test code = 1012) 1.5 % BASOPHILS (test code = 1013) 0.5 % IMMATURE GRANULOCYTES (test 0.5 % code = 1036) NUCLEATED RBCS (test code = 0.0 /100WBC'S 1065) PLATELET COUNT (test code = 343 K/UL 1015) ABSOLUTE NEUTROPHILS (test code 9.50 K/UL = 1066) ABSOLUTE LYMPHOCYTES (test code 2.53 K/UL = 1067) ABSOLUTE MONOCYTES (test code = 0.74 K/UL 1068) ABSOLUTE EOSINOPHILS (test code 0.20 K/UL = 1040) ABSOLUTE BASOPHILS (test code = 0.06 K/UL 1069) ABS IMMATURE GRANULOCYTES (test 0.06 K/UL code = 1020) ABS NUCLEATED RBCS (test code = 0.00 K/UL 28963) CBC W/AUTO [id number] 00:00:00 Test Item Value Reference Range Interpretation Comments WBC (test code = 1001) 13.1 K/UL RBC (test code = 1002) 4.79 M/UL HEMOGLOBIN (test code = 1003) 14.7 G/DL HEMATOCRIT (test code = 1004) 43.7 % MCV (test code = 1005) 91.2 fL MCH (test code = 1006) 30.7 PG MCHC (test code = 1007) 33.6 G/DL RDW (test code = 1038) 12.8 % NEUTROPHILS (test code = 1008) 72.5 % LYMPHOCYTES (test code = 1010) 19.3 % MONOCYTES (test code = 1011) 5.7 % EOSINOPHILS (test code = 1012) 1.5 % BASOPHILS (test code = 1013) 0.5 % IMMATURE GRANULOCYTES (test 0.5 % code = 1036) NUCLEATED RBCS (test code = 0.0 /100WBC'S 1065) PLATELET COUNT (test code = 343 K/UL 1015) ABSOLUTE NEUTROPHILS (test code 9.50 K/UL = 1066) ABSOLUTE LYMPHOCYTES (test code 2.53 K/UL = 1067) ABSOLUTE MONOCYTES (test code = 0.74 K/UL 1068) ABSOLUTE EOSINOPHILS (test code 0.20 K/UL = 1040) ABSOLUTE BASOPHILS (test code = 0.06 K/UL 1069) ABS IMMATURE GRANULOCYTES (test 0.06 K/UL code = 1020) ABS NUCLEATED RBCS (test code = 0.00 K/UL 83040) CBC W/AUTO [id number] 00:00:00 Test Item Value Reference Range Interpretation Comments WBC (test code = 1001) 13.1 K/UL RBC (test code = 1002) 4.79 M/UL HEMOGLOBIN (test code = 1003) 14.7 G/DL HEMATOCRIT (test code = 1004) 43.7 % MCV (test code = 1005) 91.2 fL MCH (test code = 1006) 30.7 PG MCHC (test code = 1007) 33.6 G/DL RDW (test code = 1038) 12.8 % NEUTROPHILS (test code = 1008) 72.5 % LYMPHOCYTES (test code = 1010) 19.3 % MONOCYTES (test code = 1011) 5.7 % EOSINOPHILS (test code = 1012) 1.5 % BASOPHILS (test code = 1013) 0.5 % IMMATURE GRANULOCYTES (test 0.5 % code = 1036) NUCLEATED RBCS (test code = 0.0 /100WBC'S 1065) PLATELET COUNT (test code = 343 K/UL 1015) ABSOLUTE NEUTROPHILS (test code 9.50 K/UL = 1066) ABSOLUTE LYMPHOCYTES (test code 2.53 K/UL = 1067) ABSOLUTE MONOCYTES (test code = 0.74 K/UL 1068) ABSOLUTE EOSINOPHILS (test code 0.20 K/UL = 1040) ABSOLUTE BASOPHILS (test code = 0.06 K/UL 1069) ABS IMMATURE GRANULOCYTES (test 0.06 K/UL code = 1020) ABS NUCLEATED RBCS (test code = 0.00 K/UL 14311) LIPID [id number] 00:00:00 Test Item Value Reference Range Interpretation Comments CHOLESTEROL (test code = 2210) 227 MG/DL TRIGLYCERIDES (test code = 2232) 89 MG/DL HDL CHOLESTEROL (test code = 2220) 77 MG/DL CALC LDL CHOL (test code = 2237) 131 MG/DL RISK RATIO LDL/HDL (test code = 1.70 RATIO 2238) LIPID [id number] 00:00:00 Test Item Value Reference Range Interpretation Comments CHOLESTEROL (test code = 2210) 227 MG/DL TRIGLYCERIDES (test code = 2232) 89 MG/DL HDL CHOLESTEROL (test code = 2220) 77 MG/DL CALC LDL CHOL (test code = 2237) 131 MG/DL RISK RATIO LDL/HDL (test code = 1.70 RATIO 2238) COMPREHENSIVE METABOLIC [id number] 00:00:00 Test Item Value Reference Range Interpretation Comments GLUCOSE (test code = 2217) 84 MG/DL BUN (test code = 2208) 15 MG/DL CREATININE (test code = 2214) 0.86 MG/DL eGFR (2020 CKD-EPI) (test code 78 ML/MIN/1.73 = 70487) CALC BUN/CREAT (test code = 17 RATIO 2235) SODIUM (test code = 2231) 144 MEQ/L POTASSIUM (test code = 2228) 4.7 MEQ/L CHLORIDE (test code = 2215) 103 MEQ/L CARBON DIOXIDE (test code = 16 MEQ/L 2206) CALCIUM (test code = 2209) 10.1 MG/DL PROTEIN, TOTAL (test code = 8.4 G/DL 2229) ALBUMIN (test code = 2201) 5.0 G/DL CALC GLOBULIN (test code = 3.4 G/DL 2240) CALC A/G RATIO (test code = 1.5 RATIO 2234) BILIRUBIN, TOTAL (test code = 0.5 MG/DL 220) ALKALINE PHOSPHATASE (test 87 U/L code = 2204) AST (test code = 2218) 24 U/L ALT (test code = 2219) 16 U/L COMPREHENSIVE METABOLIC [id number] 00:00:00 Test Item Value Reference Range Interpretation Comments GLUCOSE (test code = 2217) 84 MG/DL BUN (test code = 2208) 15 MG/DL CREATININE (test code = 2214) 0.86 MG/DL eGFR (2020 CKD-EPI) (test code 78 ML/MIN/1.73 = 29817) CALC BUN/CREAT (test code = 17 RATIO 2235) SODIUM (test code = 2231) 144 MEQ/L POTASSIUM (test code = 2228) 4.7 MEQ/L CHLORIDE (test code = 2215) 103 MEQ/L CARBON DIOXIDE (test code = 16 MEQ/L 2206) CALCIUM (test code = 2209) 10.1 MG/DL PROTEIN, TOTAL (test code = 8.4 G/DL 2229) ALBUMIN (test code = 2201) 5.0 G/DL CALC GLOBULIN (test code = 3.4 G/DL 2240) CALC A/G RATIO (test code = 1.5 RATIO 2234) BILIRUBIN, TOTAL (test code = 0.5 MG/DL 2207) ALKALINE PHOSPHATASE (test 87 U/L code = 2204) AST (test code = 2218) 24 U/L ALT (test code = 2219) 16 U/L [id number] 00:00:00 Test Item Value Reference Range Interpretation Comments TSH, THIRD GENERATION (test code 1.430 UIU/ML = 2821) [id number] 00:00:00 Test Item Value Reference Range Interpretation Comments TSH, THIRD GENERATION (test code 1.430 UIU/ML = 2821) [id number] 00:00:00 Test Item Value Reference Range Interpretation Comments TSH, THIRD GENERATION (test code 1.430 UIU/ML = 2821) CULTURE, [id number] 00:00:00 Test Item Value Reference Range Interpretation Comments CULTURE, THROAT (test SPECIMEN NUMBER: code = 46575) [id number] CULTURE, [id number] 00:00:00 Test Item Value Reference Range Interpretation Comments CULTURE, THROAT (test SPECIMEN NUMBER: code = 82426) [id number] CULTURE, [id number] 00:00:00 Test Item Value Reference Range Interpretation Comments CULTURE, THROAT (test SPECIMEN NUMBER: code = 19021) [id number] CULTURE, [id number] 00:00:00 Test Item Value Reference Range Interpretation Comments CULTURE, THROAT (test SPECIMEN NUMBER: code = 82164) [id number] CULTURE, [id number] 00:00:00 Test Item Value Reference Range Interpretation Comments CULTURE, THROAT (test SPECIMEN NUMBER: code = 65602) [id number] CULTURE, [id number] 00:00:00 Test Item Value Reference Range Interpretation Comments CULTURE, THROAT (test SPECIMEN NUMBER: code = 09314) [id number] CULTURE, [id number] 00:00:00 Test Item Value Reference Range Interpretation Comments CULTURE, THROAT (test SPECIMEN NUMBER: code = 08177) [id number] CULTURE, [id number] 00:00:00 Test Item Value Reference Range Interpretation Comments CULTURE, THROAT (test SPECIMEN NUMBER: code = 27243) [id number] COMPREHENSIVE METABOLIC [id number] 00:00:00 Test Item Value Reference Range Interpretation Comments GLUCOSE (test code = 2217) 87 MG/DL BUN (test code = 2208) 11 MG/DL CREATININE (test code = 2214) 0.80 MG/DL eGFR AMER. (test code 94 ML/MIN/1.73 = 42050) eGFR NON- AMER. (test 81 ML/MIN/1.73 code = 84628) CALC BUN/CREAT (test code = 14 RATIO 2235) SODIUM (test code = 2231) 143 MEQ/L POTASSIUM (test code = 2228) 4.9 MEQ/L CHLORIDE (test code = 2215) 106 MEQ/L CARBON DIOXIDE (test code = 24 MEQ/L 2205) CALCIUM (test code = 2209) 9.9 MG/DL PROTEIN, TOTAL (test code = 7.6 G/DL 2228) ALBUMIN (test code = 2201) 4.6 G/DL CALC GLOBULIN (test code = 3.0 G/DL 224) CALC A/G RATIO (test code = 1.5 RATIO 2234) BILIRUBIN, TOTAL (test code = 0.3 MG/DL 2206) ALKALINE PHOSPHATASE (test 84 U/L code = 2204) AST (test code = 2218) 22 U/L ALT (test code = 2219) 11 U/L LIPID [id number] 00:00:00 Test Item Value Reference Range Interpretation Comments CHOLESTEROL (test code = 2210) 176 MG/DL TRIGLYCERIDES (test code = 2232) 91 MG/DL HDL CHOLESTEROL (test code = 2220) 62 MG/DL CALC LDL CHOL (test code = 2237) 95 MG/DL RISK RATIO LDL/HDL (test code = 1.53 RATIO 2238) LIPID [id number] 00:00:00 Test Item Value Reference Range Interpretation Comments CHOLESTEROL (test code = 2210) 176 MG/DL TRIGLYCERIDES (test code = 2232) 91 MG/DL HDL CHOLESTEROL (test code = 2220) 62 MG/DL CALC LDL CHOL (test code = 2237) 95 MG/DL RISK RATIO LDL/HDL (test code = 1.53 RATIO 2238) COMPREHENSIVE METABOLIC [id number] 00:00:00 Test Item Value Reference Range Interpretation Comments GLUCOSE (test code = 2217) 87 MG/DL BUN (test code = 2208) 11 MG/DL CREATININE (test code = 2214) 0.80 MG/DL eGFR AMER. (test code 94 ML/MIN/1.73 = 38496) eGFR NON- AMER. (test 81 ML/MIN/1.73 code = 06978) CALC BUN/CREAT (test code = 14 RATIO 2235) SODIUM (test code = 2231) 143 MEQ/L POTASSIUM (test code = 2228) 4.9 MEQ/L CHLORIDE (test code = 2215) 106 MEQ/L CARBON DIOXIDE (test code = 24 MEQ/L 2205) CALCIUM (test code = 2209) 9.9 MG/DL PROTEIN, TOTAL (test code = 7.6 G/DL 222) ALBUMIN (test code = 2201) 4.6 G/DL CALC GLOBULIN (test code = 3.0 G/DL 2240) CALC A/G RATIO (test code = 1.5 RATIO 2234) BILIRUBIN, TOTAL (test code = 0.3 MG/DL 2206) ALKALINE PHOSPHATASE (test 84 U/L code = 2204) AST (test code = 2218) 22 U/L ALT (test code = 2219) 11 U/L COMPREHENSIVE METABOLIC [id number] 00:00:00 Test Item Value Reference Range Interpretation Comments GLUCOSE (test code = 2217) 87 MG/DL BUN (test code = 2208) 11 MG/DL CREATININE (test code = 2214) 0.80 MG/DL eGFR AMER. (test code 94 ML/MIN/1.73 = 69548) eGFR NON- AMER. (test 81 ML/MIN/1.73 code = 50961) CALC BUN/CREAT (test code = 14 RATIO 2235) SODIUM (test code = 2231) 143 MEQ/L POTASSIUM (test code = 2228) 4.9 MEQ/L CHLORIDE (test code = 2215) 106 MEQ/L CARBON DIOXIDE (test code = 24 MEQ/L 2205) CALCIUM (test code = 2209) 9.9 MG/DL PROTEIN, TOTAL (test code = 7.6 G/DL 2228) ALBUMIN (test code = 2201) 4.6 G/DL CALC GLOBULIN (test code = 3.0 G/DL 2240) CALC A/G RATIO (test code = 1.5 RATIO 2234) BILIRUBIN, TOTAL (test code = 0.3 MG/DL 2206) ALKALINE PHOSPHATASE (test 84 U/L code = 2204) AST (test code = 2218) 22 U/L ALT (test code = 2219) 11 U/L LIPID [id number] 00:00:00 Test Item Value Reference Range Interpretation Comments CHOLESTEROL (test code = 2210) 176 MG/DL TRIGLYCERIDES (test code = 2232) 91 MG/DL HDL CHOLESTEROL (test code = 2220) 62 MG/DL CALC LDL CHOL (test code = 2237) 95 MG/DL RISK RATIO LDL/HDL (test code = 1.53 RATIO 2238) LIPID [id number] 00:00:00 Test Item Value Reference Range Interpretation Comments CHOLESTEROL (test code = 2210) 176 MG/DL TRIGLYCERIDES (test code = 2232) 91 MG/DL HDL CHOLESTEROL (test code = 2220) 62 MG/DL CALC LDL CHOL (test code = 2237) 95 MG/DL RISK RATIO LDL/HDL (test code = 1.53 RATIO 2238) COMPREHENSIVE METABOLIC [id number] 00:00:00 Test Item Value Reference Range Interpretation Comments GLUCOSE (test code = 2217) 87 MG/DL BUN (test code = 2208) 11 MG/DL CREATININE (test code = 2214) 0.80 MG/DL eGFR AMER. (test code 94 ML/MIN/1.73 = 28308) eGFR NON- AMER. (test 81 ML/MIN/1.73 code = 89383) CALC BUN/CREAT (test code = 14 RATIO 2235) SODIUM (test code = 2231) 143 MEQ/L POTASSIUM (test code = 2228) 4.9 MEQ/L CHLORIDE (test code = 2215) 106 MEQ/L CARBON DIOXIDE (test code = 24 MEQ/L 2205) CALCIUM (test code = 2209) 9.9 MG/DL PROTEIN, TOTAL (test code = 7.6 G/DL 2228) ALBUMIN (test code = 2201) 4.6 G/DL CALC GLOBULIN (test code = 3.0 G/DL 2240) CALC A/G RATIO (test code = 1.5 RATIO 2234) BILIRUBIN, TOTAL (test code = 0.3 MG/DL 2206) ALKALINE PHOSPHATASE (test 84 U/L code = 2204) AST (test code = 2218) 22 U/L ALT (test code = 2219) 11 U/L COMPREHENSIVE METABOLIC [id number] 00:00:00 Test Item Value Reference Range Interpretation Comments GLUCOSE (test code = 2217) 87 MG/DL BUN (test code = 2208) 11 MG/DL CREATININE (test code = 2214) 0.80 MG/DL eGFR AMER. (test code 94 ML/MIN/1.73 = 65050) eGFR NON- AMER. (test 81 ML/MIN/1.73 code = 28787) CALC BUN/CREAT (test code = 14 RATIO 2235) SODIUM (test code = 2231) 143 MEQ/L POTASSIUM (test code = 2228) 4.9 MEQ/L CHLORIDE (test code = 2215) 106 MEQ/L CARBON DIOXIDE (test code = 24 MEQ/L 220) CALCIUM (test code = 2209) 9.9 MG/DL PROTEIN, TOTAL (test code = 7.6 G/DL 2228) ALBUMIN (test code = 2201) 4.6 G/DL CALC GLOBULIN (test code = 3.0 G/DL 2240) CALC A/G RATIO (test code = 1.5 RATIO 2234) BILIRUBIN, TOTAL (test code = 0.3 MG/DL 2206) ALKALINE PHOSPHATASE (test 84 U/L code = 2204) AST (test code = 2218) 22 U/L ALT (test code = 2219) 11 U/L LIPID [id number] 00:00:00 Test Item Value Reference Range Interpretation Comments CHOLESTEROL (test code = 2210) 176 MG/DL TRIGLYCERIDES (test code = 2232) 91 MG/DL HDL CHOLESTEROL (test code = 2220) 62 MG/DL CALC LDL CHOL (test code = 2237) 95 MG/DL RISK RATIO LDL/HDL (test code = 1.53 RATIO 2238) LIPID [id number] 00:00:00 Test Item Value Reference Range Interpretation Comments CHOLESTEROL (test code = 2210) 176 MG/DL TRIGLYCERIDES (test code = 2232) 91 MG/DL HDL CHOLESTEROL (test code = 2220) 62 MG/DL CALC LDL CHOL (test code = 2237) 95 MG/DL RISK RATIO LDL/HDL (test code = 1.53 RATIO 2238) COMPREHENSIVE METABOLIC [id number] 00:00:00 Test Item Value Reference Range Interpretation Comments GLUCOSE (test code = 2217) 87 MG/DL BUN (test code = 2208) 11 MG/DL CREATININE (test code = 2214) 0.80 MG/DL eGFR AMER. (test code 94 ML/MIN/1.73 = 18715) eGFR NON- AMER. (test 81 ML/MIN/1.73 code = 18822) CALC BUN/CREAT (test code = 14 RATIO 2235) SODIUM (test code = 2231) 143 MEQ/L POTASSIUM (test code = 2228) 4.9 MEQ/L CHLORIDE (test code = 2215) 106 MEQ/L CARBON DIOXIDE (test code = 24 MEQ/L 220) CALCIUM (test code = 2209) 9.9 MG/DL PROTEIN, TOTAL (test code = 7.6 G/DL 222) ALBUMIN (test code = 2201) 4.6 G/DL CALC GLOBULIN (test code = 3.0 G/DL 2240) CALC A/G RATIO (test code = 1.5 RATIO 2234) BILIRUBIN, TOTAL (test code = 0.3 MG/DL 2206) ALKALINE PHOSPHATASE (test 84 U/L code = 2204) AST (test code = 2218) 22 U/L ALT (test code = 2219) 11 U/L COMPREHENSIVE METABOLIC [id number] 00:00:00 Test Item Value Reference Range Interpretation Comments GLUCOSE (test code = 2217) 87 MG/DL BUN (test code = 2208) 11 MG/DL CREATININE (test code = 2214) 0.80 MG/DL eGFR AMER. (test code 94 ML/MIN/1.73 = 04983) eGFR NON- AMER. (test 81 ML/MIN/1.73 code = 21072) CALC BUN/CREAT (test code = 14 RATIO 2235) SODIUM (test code = 2231) 143 MEQ/L POTASSIUM (test code = 2228) 4.9 MEQ/L CHLORIDE (test code = 2215) 106 MEQ/L CARBON DIOXIDE (test code = 24 MEQ/L 2205) CALCIUM (test code = 2209) 9.9 MG/DL PROTEIN, TOTAL (test code = 7.6 G/DL 2228) ALBUMIN (test code = 2201) 4.6 G/DL CALC GLOBULIN (test code = 3.0 G/DL 2240) CALC A/G RATIO (test code = 1.5 RATIO 2234) BILIRUBIN, TOTAL (test code = 0.3 MG/DL 7) ALKALINE PHOSPHATASE (test 84 U/L code = 2204) AST (test code = 2218) 22 U/L ALT (test code = 2219) 11 U/L LIPID [id number] 00:00:00 Test Item Value Reference Range Interpretation Comments CHOLESTEROL (test code = 2210) 176 MG/DL TRIGLYCERIDES (test code = 2232) 91 MG/DL HDL CHOLESTEROL (test code = 2220) 62 MG/DL CALC LDL CHOL (test code = 2237) 95 MG/DL RISK RATIO LDL/HDL (test code = 1.53 RATIO 2238) LIPID [id number] 00:00:00 Test Item Value Reference Range Interpretation Comments CHOLESTEROL (test code = 2210) 176 MG/DL TRIGLYCERIDES (test code = 2232) 91 MG/DL HDL CHOLESTEROL (test code = 2220) 62 MG/DL CALC LDL CHOL (test code = 2237) 95 MG/DL RISK RATIO LDL/HDL (test code = 1.53 RATIO 2238) COMPREHENSIVE METABOLIC [id number] 00:00:00 Test Item Value Reference Range Interpretation Comments GLUCOSE (test code = 2217) 87 MG/DL BUN (test code = 2208) 11 MG/DL CREATININE (test code = 2214) 0.80 MG/DL eGFR AMER. (test code 94 ML/MIN/1.73 = 00445) eGFR NON- AMER. (test 81 ML/MIN/1.73 code = 79429) CALC BUN/CREAT (test code = 14 RATIO 2235) SODIUM (test code = 2231) 143 MEQ/L POTASSIUM (test code = 2228) 4.9 MEQ/L CHLORIDE (test code = 2215) 106 MEQ/L CARBON DIOXIDE (test code = 24 MEQ/L 2205) CALCIUM (test code = 2209) 9.9 MG/DL PROTEIN, TOTAL (test code = 7.6 G/DL 2228) ALBUMIN (test code = 2201) 4.6 G/DL CALC GLOBULIN (test code = 3.0 G/DL 2240) CALC A/G RATIO (test code = 1.5 RATIO 2234) BILIRUBIN, TOTAL (test code = 0.3 MG/DL 2206) ALKALINE PHOSPHATASE (test 84 U/L code = 2204) AST (test code = 2218) 22 U/L ALT (test code = 2219) 11 U/L CBC W/AUTO [id number] 00:00:00 Test Item Value Reference Range Interpretation Comments WBC (test code = 1001) 7.4 K/UL RBC (test code = 1002) 4.52 M/UL HEMOGLOBIN (test code = 1003) 13.3 G/DL HEMATOCRIT (test code = 1004) 41.4 % MCV (test code = 1005) 91.6 fL MCH (test code = 1006) 29.4 PG MCHC (test code = 1007) 32.1 G/DL RDW (test code = 1038) 12.7 % NEUTROPHILS (test code = 1008) 65.3 % LYMPHOCYTES (test code = 1010) 19.2 % MONOCYTES (test code = 1011) 10.3 % EOSINOPHILS (test code = 1012) 4.3 % BASOPHILS (test code = 1013) 0.8 % IMMATURE GRANULOCYTES (test 0.1 % code = 1036) NUCLEATED RBCS (test code = 0.0 /100WBC'S 1065) PLATELET COUNT (test code = 341 K/UL 1015) ABSOLUTE NEUTROPHILS (test code 4.84 K/UL = 1066) ABSOLUTE LYMPHOCYTES (test code 1.42 K/UL = 1067) ABSOLUTE MONOCYTES (test code = 0.76 K/UL 1068) ABSOLUTE EOSINOPHILS (test code 0.32 K/UL = 1040) ABSOLUTE BASOPHILS (test code = 0.06 K/UL 1069) ABS IMMATURE GRANULOCYTES (test 0.01 K/UL code = 1020) ABS NUCLEATED RBCS (test code = 0.00 K/UL 74364) CBC W/AUTO [id number] 00:00:00 Test Item Value Reference Range Interpretation Comments WBC (test code = 1001) 7.4 K/UL RBC (test code = 1002) 4.52 M/UL HEMOGLOBIN (test code = 1003) 13.3 G/DL HEMATOCRIT (test code = 1004) 41.4 % MCV (test code = 1005) 91.6 fL MCH (test code = 1006) 29.4 PG MCHC (test code = 1007) 32.1 G/DL RDW (test code = 1038) 12.7 % NEUTROPHILS (test code = 1008) 65.3 % LYMPHOCYTES (test code = 1010) 19.2 % MONOCYTES (test code = 1011) 10.3 % EOSINOPHILS (test code = 1012) 4.3 % BASOPHILS (test code = 1013) 0.8 % IMMATURE GRANULOCYTES (test 0.1 % code = 1036) NUCLEATED RBCS (test code = 0.0 /100WBC'S 1065) PLATELET COUNT (test code = 341 K/UL 1015) ABSOLUTE NEUTROPHILS (test code 4.84 K/UL = 1066) ABSOLUTE LYMPHOCYTES (test code 1.42 K/UL = 1067) ABSOLUTE MONOCYTES (test code = 0.76 K/UL 1068) ABSOLUTE EOSINOPHILS (test code 0.32 K/UL = 1040) ABSOLUTE BASOPHILS (test code = 0.06 K/UL 1069) ABS IMMATURE GRANULOCYTES (test 0.01 K/UL code = 1020) ABS NUCLEATED RBCS (test code = 0.00 K/UL 42015) CBC W/AUTO [id number] 00:00:00 Test Item Value Reference Range Interpretation Comments WBC (test code = 1001) 7.4 K/UL RBC (test code = 1002) 4.52 M/UL HEMOGLOBIN (test code = 1003) 13.3 G/DL HEMATOCRIT (test code = 1004) 41.4 % MCV (test code = 1005) 91.6 fL MCH (test code = 1006) 29.4 PG MCHC (test code = 1007) 32.1 G/DL RDW (test code = 1038) 12.7 % NEUTROPHILS (test code = 1008) 65.3 % LYMPHOCYTES (test code = 1010) 19.2 % MONOCYTES (test code = 1011) 10.3 % EOSINOPHILS (test code = 1012) 4.3 % BASOPHILS (test code = 1013) 0.8 % IMMATURE GRANULOCYTES (test 0.1 % code = 1036) NUCLEATED RBCS (test code = 0.0 /100WBC'S 1065) PLATELET COUNT (test code = 341 K/UL 1015) ABSOLUTE NEUTROPHILS (test code 4.84 K/UL = 1066) ABSOLUTE LYMPHOCYTES (test code 1.42 K/UL = 1067) ABSOLUTE MONOCYTES (test code = 0.76 K/UL 1068) ABSOLUTE EOSINOPHILS (test code 0.32 K/UL = 1040) ABSOLUTE BASOPHILS (test code = 0.06 K/UL 1069) ABS IMMATURE GRANULOCYTES (test 0.01 K/UL code = 1020) ABS NUCLEATED RBCS (test code = 0.00 K/UL 05147) CBC W/AUTO [id number] 00:00:00 Test Item Value Reference Range Interpretation Comments WBC (test code = 1001) 7.4 K/UL RBC (test code = 1002) 4.52 M/UL HEMOGLOBIN (test code = 1003) 13.3 G/DL HEMATOCRIT (test code = 1004) 41.4 % MCV (test code = 1005) 91.6 fL MCH (test code = 1006) 29.4 PG MCHC (test code = 1007) 32.1 G/DL RDW (test code = 1038) 12.7 % NEUTROPHILS (test code = 1008) 65.3 % LYMPHOCYTES (test code = 1010) 19.2 % MONOCYTES (test code = 1011) 10.3 % EOSINOPHILS (test code = 1012) 4.3 % BASOPHILS (test code = 1013) 0.8 % IMMATURE GRANULOCYTES (test 0.1 % code = 1036) NUCLEATED RBCS (test code = 0.0 /100WBC'S 1065) PLATELET COUNT (test code = 341 K/UL 1015) ABSOLUTE NEUTROPHILS (test code 4.84 K/UL = 1066) ABSOLUTE LYMPHOCYTES (test code 1.42 K/UL = 1067) ABSOLUTE MONOCYTES (test code = 0.76 K/UL 1068) ABSOLUTE EOSINOPHILS (test code 0.32 K/UL = 1040) ABSOLUTE BASOPHILS (test code = 0.06 K/UL 1069) ABS IMMATURE GRANULOCYTES (test 0.01 K/UL code = 1020) ABS NUCLEATED RBCS (test code = 0.00 K/UL 07575) CBC W/AUTO [id number] 00:00:00 Test Item Value Reference Range Interpretation Comments WBC (test code = 1001) 7.4 K/UL RBC (test code = 1002) 4.52 M/UL HEMOGLOBIN (test code = 1003) 13.3 G/DL HEMATOCRIT (test code = 1004) 41.4 % MCV (test code = 1005) 91.6 fL MCH (test code = 1006) 29.4 PG MCHC (test code = 1007) 32.1 G/DL RDW (test code = 1038) 12.7 % NEUTROPHILS (test code = 1008) 65.3 % LYMPHOCYTES (test code = 1010) 19.2 % MONOCYTES (test code = 1011) 10.3 % EOSINOPHILS (test code = 1012) 4.3 % BASOPHILS (test code = 1013) 0.8 % IMMATURE GRANULOCYTES (test 0.1 % code = 1036) NUCLEATED RBCS (test code = 0.0 /100WBC'S 1065) PLATELET COUNT (test code = 341 K/UL 1015) ABSOLUTE NEUTROPHILS (test code 4.84 K/UL = 1066) ABSOLUTE LYMPHOCYTES (test code 1.42 K/UL = 1067) ABSOLUTE MONOCYTES (test code = 0.76 K/UL 1068) ABSOLUTE EOSINOPHILS (test code 0.32 K/UL = 1040) ABSOLUTE BASOPHILS (test code = 0.06 K/UL 1069) ABS IMMATURE GRANULOCYTES (test 0.01 K/UL code = 1020) ABS NUCLEATED RBCS (test code = 0.00 K/UL 49182) CBC W/AUTO [id number] 00:00:00 Test Item Value Reference Range Interpretation Comments WBC (test code = 1001) 7.4 K/UL RBC (test code = 1002) 4.52 M/UL HEMOGLOBIN (test code = 1003) 13.3 G/DL HEMATOCRIT (test code = 1004) 41.4 % MCV (test code = 1005) 91.6 fL MCH (test code = 1006) 29.4 PG MCHC (test code = 1007) 32.1 G/DL RDW (test code = 1038) 12.7 % NEUTROPHILS (test code = 1008) 65.3 % LYMPHOCYTES (test code = 1010) 19.2 % MONOCYTES (test code = 1011) 10.3 % EOSINOPHILS (test code = 1012) 4.3 % BASOPHILS (test code = 1013) 0.8 % IMMATURE GRANULOCYTES (test 0.1 % code = 1036) NUCLEATED RBCS (test code = 0.0 /100WBC'S 1065) PLATELET COUNT (test code = 341 K/UL 1015) ABSOLUTE NEUTROPHILS (test code 4.84 K/UL = 1066) ABSOLUTE LYMPHOCYTES (test code 1.42 K/UL = 1067) ABSOLUTE MONOCYTES (test code = 0.76 K/UL 1068) ABSOLUTE EOSINOPHILS (test code 0.32 K/UL = 1040) ABSOLUTE BASOPHILS (test code = 0.06 K/UL 1069) ABS IMMATURE GRANULOCYTES (test 0.01 K/UL code = 1020) ABS NUCLEATED RBCS (test code = 0.00 K/UL 31597) CBC W/AUTO [id number] 00:00:00 Test Item Value Reference Range Interpretation Comments WBC (test code = 1001) 7.4 K/UL RBC (test code = 1002) 4.52 M/UL HEMOGLOBIN (test code = 1003) 13.3 G/DL HEMATOCRIT (test code = 1004) 41.4 % MCV (test code = 1005) 91.6 fL MCH (test code = 1006) 29.4 PG MCHC (test code = 1007) 32.1 G/DL RDW (test code = 1038) 12.7 % NEUTROPHILS (test code = 1008) 65.3 % LYMPHOCYTES (test code = 1010) 19.2 % MONOCYTES (test code = 1011) 10.3 % EOSINOPHILS (test code = 1012) 4.3 % BASOPHILS (test code = 1013) 0.8 % IMMATURE GRANULOCYTES (test 0.1 % code = 1036) NUCLEATED RBCS (test code = 0.0 /100WBC'S 1065) PLATELET COUNT (test code = 341 K/UL 1015) ABSOLUTE NEUTROPHILS (test code 4.84 K/UL = 1066) ABSOLUTE LYMPHOCYTES (test code 1.42 K/UL = 1067) ABSOLUTE MONOCYTES (test code = 0.76 K/UL 1068) ABSOLUTE EOSINOPHILS (test code 0.32 K/UL = 1040) ABSOLUTE BASOPHILS (test code = 0.06 K/UL 1069) ABS IMMATURE GRANULOCYTES (test 0.01 K/UL code = 1020) ABS NUCLEATED RBCS (test code = 0.00 K/UL 95643) CBC W/AUTO [id number] 00:00:00 Test Item Value Reference Range Interpretation Comments WBC (test code = 1001) 7.4 K/UL RBC (test code = 1002) 4.52 M/UL HEMOGLOBIN (test code = 1003) 13.3 G/DL HEMATOCRIT (test code = 1004) 41.4 % MCV (test code = 1005) 91.6 fL MCH (test code = 1006) 29.4 PG MCHC (test code = 1007) 32.1 G/DL RDW (test code = 1038) 12.7 % NEUTROPHILS (test code = 1008) 65.3 % LYMPHOCYTES (test code = 1010) 19.2 % MONOCYTES (test code = 1011) 10.3 % EOSINOPHILS (test code = 1012) 4.3 % BASOPHILS (test code = 1013) 0.8 % IMMATURE GRANULOCYTES (test 0.1 % code = 1036) NUCLEATED RBCS (test code = 0.0 /100WBC'S 1065) PLATELET COUNT (test code = 341 K/UL 1015) ABSOLUTE NEUTROPHILS (test code 4.84 K/UL = 1066) ABSOLUTE LYMPHOCYTES (test code 1.42 K/UL = 1067) ABSOLUTE MONOCYTES (test code = 0.76 K/UL 1068) ABSOLUTE EOSINOPHILS (test code 0.32 K/UL = 1040) ABSOLUTE BASOPHILS (test code = 0.06 K/UL 1069) ABS IMMATURE GRANULOCYTES (test 0.01 K/UL code = 1020) ABS NUCLEATED RBCS (test code = 0.00 K/UL 55297) CBC W/AUTO [id number] 00:00:00 Test Item Value Reference Range Interpretation Comments WBC (test code = 1001) 7.4 K/UL RBC (test code = 1002) 4.52 M/UL HEMOGLOBIN (test code = 1003) 13.3 G/DL HEMATOCRIT (test code = 1004) 41.4 % MCV (test code = 1005) 91.6 fL MCH (test code = 1006) 29.4 PG MCHC (test code = 1007) 32.1 G/DL RDW (test code = 1038) 12.7 % NEUTROPHILS (test code = 1008) 65.3 % LYMPHOCYTES (test code = 1010) 19.2 % MONOCYTES (test code = 1011) 10.3 % EOSINOPHILS (test code = 1012) 4.3 % BASOPHILS (test code = 1013) 0.8 % IMMATURE GRANULOCYTES (test 0.1 % code = 1036) NUCLEATED RBCS (test code = 0.0 /100WBC'S 1065) PLATELET COUNT (test code = 341 K/UL 1015) ABSOLUTE NEUTROPHILS (test code 4.84 K/UL = 1066) ABSOLUTE LYMPHOCYTES (test code 1.42 K/UL = 1067) ABSOLUTE MONOCYTES (test code = 0.76 K/UL 1068) ABSOLUTE EOSINOPHILS (test code 0.32 K/UL = 1040) ABSOLUTE BASOPHILS (test code = 0.06 K/UL 1069) ABS IMMATURE GRANULOCYTES (test 0.01 K/UL code = 1020) ABS NUCLEATED RBCS (test code = 0.00 K/UL 82584) CBC W/AUTO [id number] 00:00:00 Test Item Value Reference Range Interpretation Comments WBC (test code = 1001) 7.4 K/UL RBC (test code = 1002) 4.52 M/UL HEMOGLOBIN (test code = 1003) 13.3 G/DL HEMATOCRIT (test code = 1004) 41.4 % MCV (test code = 1005) 91.6 fL MCH (test code = 1006) 29.4 PG MCHC (test code = 1007) 32.1 G/DL RDW (test code = 1038) 12.7 % NEUTROPHILS (test code = 1008) 65.3 % LYMPHOCYTES (test code = 1010) 19.2 % MONOCYTES (test code = 1011) 10.3 % EOSINOPHILS (test code = 1012) 4.3 % BASOPHILS (test code = 1013) 0.8 % IMMATURE GRANULOCYTES (test 0.1 % code = 1036) NUCLEATED RBCS (test code = 0.0 /100WBC'S 1065) PLATELET COUNT (test code = 341 K/UL 1015) ABSOLUTE NEUTROPHILS (test code 4.84 K/UL = 1066) ABSOLUTE LYMPHOCYTES (test code 1.42 K/UL = 1067) ABSOLUTE MONOCYTES (test code = 0.76 K/UL 1068) ABSOLUTE EOSINOPHILS (test code 0.32 K/UL = 1040) ABSOLUTE BASOPHILS (test code = 0.06 K/UL 1069) ABS IMMATURE GRANULOCYTES (test 0.01 K/UL code = 1020) ABS NUCLEATED RBCS (test code = 0.00 K/UL 18533) CBC W/AUTO [id number] 00:00:00 Test Item Value Reference Range Interpretation Comments WBC (test code = 1001) 7.4 K/UL RBC (test code = 1002) 4.52 M/UL HEMOGLOBIN (test code = 1003) 13.3 G/DL HEMATOCRIT (test code = 1004) 41.4 % MCV (test code = 1005) 91.6 fL MCH (test code = 1006) 29.4 PG MCHC (test code = 1007) 32.1 G/DL RDW (test code = 1038) 12.7 % NEUTROPHILS (test code = 1008) 65.3 % LYMPHOCYTES (test code = 1010) 19.2 % MONOCYTES (test code = 1011) 10.3 % EOSINOPHILS (test code = 1012) 4.3 % BASOPHILS (test code = 1013) 0.8 % IMMATURE GRANULOCYTES (test 0.1 % code = 1036) NUCLEATED RBCS (test code = 0.0 /100WBC'S 1065) PLATELET COUNT (test code = 341 K/UL 1015) ABSOLUTE NEUTROPHILS (test code 4.84 K/UL = 1066) ABSOLUTE LYMPHOCYTES (test code 1.42 K/UL = 1067) ABSOLUTE MONOCYTES (test code = 0.76 K/UL 1068) ABSOLUTE EOSINOPHILS (test code 0.32 K/UL = 1040) ABSOLUTE BASOPHILS (test code = 0.06 K/UL 1069) ABS IMMATURE GRANULOCYTES (test 0.01 K/UL code = 1020) ABS NUCLEATED RBCS (test code = 0.00 K/UL 72758) CBC W/AUTO [id number] 00:00:00 Test Item Value Reference Range Interpretation Comments WBC (test code = 1001) 7.4 K/UL RBC (test code = 1002) 4.52 M/UL HEMOGLOBIN (test code = 1003) 13.3 G/DL HEMATOCRIT (test code = 1004) 41.4 % MCV (test code = 1005) 91.6 fL MCH (test code = 1006) 29.4 PG MCHC (test code = 1007) 32.1 G/DL RDW (test code = 1038) 12.7 % NEUTROPHILS (test code = 1008) 65.3 % LYMPHOCYTES (test code = 1010) 19.2 % MONOCYTES (test code = 1011) 10.3 % EOSINOPHILS (test code = 1012) 4.3 % BASOPHILS (test code = 1013) 0.8 % IMMATURE GRANULOCYTES (test 0.1 % code = 1036) NUCLEATED RBCS (test code = 0.0 /100WBC'S 1065) PLATELET COUNT (test code = 341 K/UL 1015) ABSOLUTE NEUTROPHILS (test code 4.84 K/UL = 1066) ABSOLUTE LYMPHOCYTES (test code 1.42 K/UL = 1067) ABSOLUTE MONOCYTES (test code = 0.76 K/UL 1068) ABSOLUTE EOSINOPHILS (test code 0.32 K/UL = 1040) ABSOLUTE BASOPHILS (test code = 0.06 K/UL 1069) ABS IMMATURE GRANULOCYTES (test 0.01 K/UL code = 1020) ABS NUCLEATED RBCS (test code = 0.00 K/UL 64739) PAP TEST, THINPREP, [id number] 00:00:00 Test Item Value Reference Range Interpretation Comments SOURCE: (test code = Cervical/Endocervical 8001) SLIDES: (test code = 1 8011) LMP: (test code = 8021) SEE NOTE SPECIMEN ADEQUACY: (test (NOTE) code = 04583) INTERPRETATION: (test NILM/NO EPITH. code = 31952) ABNORMALITY;SEE BELOW OTHER COMMENTS: (test (NOTE) code = 8081) HIGHWALL DRILL OPERATOR: (test Andreea code = 8101) JENNIFER Montaño(ASCP)IAC QC TECHNOLOGIST: (test ULISES RANDALL,CT(ASCP) code = 8111) LOCATION: (test code = (NOTE) 25633) CPT: (test code = 8140) (NOTE) PAP TEST, THINPREP, [id number] 00:00:00 Test Item Value Reference Range Interpretation Comments SOURCE: (test code = Cervical/Endocervical 8001) SLIDES: (test code = 1 8011) LMP: (test code = 8021) SEE NOTE SPECIMEN ADEQUACY: (test (NOTE) code = 04790) INTERPRETATION: (test NILM/NO EPITH. code = 65018) ABNORMALITY;SEE BELOW OTHER COMMENTS: (test (NOTE) code = 8081) HIGHWALL DRILL OPERATOR: (test Andreea code = 8101) JENNIFER Montaño(ASCP)IAC QC TECHNOLOGIST: (test ULISES RANDALL,CT(ASCP) code = 8111) LOCATION: (test code = (NOTE) 67871) CPT: (test code = 8140) (NOTE) PAP TEST, THINPREP, [id number] 00:00:00 Test Item Value Reference Range Interpretation Comments SOURCE: (test code = Cervical/Endocervical 8001) SLIDES: (test code = 1 8011) LMP: (test code = 8021) SEE NOTE SPECIMEN ADEQUACY: (test (NOTE) code = 55596) INTERPRETATION: (test NILM/NO EPITH. code = 59968) ABNORMALITY;SEE BELOW OTHER COMMENTS: (test (NOTE) code = 8081) HIGHWALL DRILL OPERATOR: (test Andreea code = 8101) JENNIFER Montaño(ASCP)IAC QC TECHNOLOGIST: (test ULISES RANDALL,CT(ASCP) code = 8111) LOCATION: (test code = (NOTE) 22971) CPT: (test code = 8140) (NOTE) PAP TEST, THINPREP, [id number] 00:00:00 Test Item Value Reference Range Interpretation Comments SOURCE: (test code = Cervical/Endocervical 8001) SLIDES: (test code = 1 8011) LMP: (test code = 8021) SEE NOTE SPECIMEN ADEQUACY: (test (NOTE) code = 05451) INTERPRETATION: (test NILM/NO EPITH. code = 34796) ABNORMALITY;SEE BELOW OTHER COMMENTS: (test (NOTE) code = 8081) HIGHWALL DRILL OPERATOR: (test Andreea code = 8101) JENNIFER Montaño(ASCP)IAC QC TECHNOLOGIST: (test ULISES RANDALLCT(ASCP) code = 8111) LOCATION: (test code = (NOTE) 22225) CPT: (test code = 8140) (NOTE) PAP TEST, THINPREP, [id number] 00:00:00 Test Item Value Reference Range Interpretation Comments SOURCE: (test code = Cervical/Endocervical 8001) SLIDES: (test code = 1 8011) LMP: (test code = 8021) SEE NOTE SPECIMEN ADEQUACY: (test (NOTE) code = 90258) INTERPRETATION: (test NILM/NO EPITH. code = 96082) ABNORMALITY;SEE BELOW OTHER COMMENTS: (test (NOTE) code = 8081) HIGHWALL DRILL OPERATOR: (test Andreea code = 8101) JENNIFER Montaño(ASCP)IAC QC TECHNOLOGIST: (test ULISES RANDALLCT(ASCP) code = 8111) LOCATION: (test code = (NOTE) 07281) CPT: (test code = 8140) (NOTE) PAP TEST, THINPREP, [id number] 00:00:00 Test Item Value Reference Range Interpretation Comments SOURCE: (test code = Cervical/Endocervical 8001) SLIDES: (test code = 1 8011) LMP: (test code = 8021) SEE NOTE SPECIMEN ADEQUACY: (test (NOTE) code = 67615) INTERPRETATION: (test NILM/NO EPITH. code = 23444) ABNORMALITY;SEE BELOW OTHER COMMENTS: (test (NOTE) code = 8081) HIGHWALL DRILL OPERATOR: (test Andreea code = 8101) JENNIFER Montaño(ASCP)IAC QC TECHNOLOGIST: (test ULISES EstradaEstelle RANDALL,CT(ASCP) code = 8111) LOCATION: (test code = (NOTE) 27646) CPT: (test code = 8140) (NOTE) PAP TEST, THINPREP, [id number] 00:00:00 Test Item Value Reference Range Interpretation Comments SOURCE: (test code = Cervical/Endocervical 8001) SLIDES: (test code = 1 8011) LMP: (test code = 8021) SEE NOTE SPECIMEN ADEQUACY: (test (NOTE) code = 18231) INTERPRETATION: (test NILM/NO EPITH. code = 42796) ABNORMALITY;SEE BELOW OTHER COMMENTS: (test (NOTE) code = 8081) HIGHWALL DRILL OPERATOR: (test Andreea code = 8101) JENNIFER Montaño(ASCP)IAC QC TECHNOLOGIST: (test ULISES NatalieEstelle RANDALL,CT(ASCP) code = 8111) LOCATION: (test code = (NOTE) 99469) CPT: (test code = 8140) (NOTE) PAP TEST, THINPREP, [id number] 00:00:00 Test Item Value Reference Range Interpretation Comments SOURCE: (test code = Cervical/Endocervical 8001) SLIDES: (test code = 1 8011) LMP: (test code = 8021) SEE NOTE SPECIMEN ADEQUACY: (test (NOTE) code = 10686) INTERPRETATION: (test NILM/NO EPITH. code = 75506) ABNORMALITY;SEE BELOW OTHER COMMENTS: (test (NOTE) code = 8081) HIGHWALL DRILL OPERATOR: (test Andreea code = 8101) JENNIFER Montaño(ASCP)IAC QC TECHNOLOGIST: (test ULISES RANDALLCT(ASCP) code = 8111) LOCATION: (test code = (NOTE) 12241) CPT: (test code = 8140) (NOTE) HPV HIGH RISK WITH GENOTYPE, [id number] 00:00:00 Test Item Value Reference Range Interpretation Comments HPV HIGH RISK INTERP (test code = NEGATIVE 60804) HPV 16 (test code = 00279) NEGATIVE HPV 18 (test code = 11274) NEGATIVE HPV, HR, OTHER GENOTYPES (test code NEGATIVE = 68066) HPV HIGH RISK WITH GENOTYPE, [id number] 00:00:00 Test Item Value Reference Range Interpretation Comments HPV HIGH RISK INTERP (test code = NEGATIVE 92579) HPV 16 (test code = 91753) NEGATIVE HPV 18 (test code = 96427) NEGATIVE HPV, HR, OTHER GENOTYPES (test code NEGATIVE = 89787) HPV HIGH RISK WITH GENOTYPE, [id number] 00:00:00 Test Item Value Reference Range Interpretation Comments HPV HIGH RISK INTERP (test code = NEGATIVE 30042) HPV 16 (test code = 03826) NEGATIVE HPV 18 (test code = 11853) NEGATIVE HPV, HR, OTHER GENOTYPES (test code NEGATIVE = 20966) HPV HIGH RISK WITH GENOTYPE, [id number] 00:00:00 Test Item Value Reference Range Interpretation Comments HPV HIGH RISK INTERP (test code = NEGATIVE 90298) HPV 16 (test code = 62893) NEGATIVE HPV 18 (test code = 92464) NEGATIVE HPV, HR, OTHER GENOTYPES (test code NEGATIVE = 82214) HPV HIGH RISK WITH GENOTYPE, [id number] 00:00:00 Test Item Value Reference Range Interpretation Comments HPV HIGH RISK INTERP (test code = NEGATIVE 50258) HPV 16 (test code = 04155) NEGATIVE HPV 18 (test code = 75060) NEGATIVE HPV, HR, OTHER GENOTYPES (test code NEGATIVE = 02767) HPV HIGH RISK WITH GENOTYPE, [id number] 00:00:00 Test Item Value Reference Range Interpretation Comments HPV HIGH RISK INTERP (test code = NEGATIVE 99978) HPV 16 (test code = 82952) NEGATIVE HPV 18 (test code = 59399) NEGATIVE HPV, HR, OTHER GENOTYPES (test code NEGATIVE = 64311) HPV HIGH RISK WITH GENOTYPE, [id number] 00:00:00 Test Item Value Reference Range Interpretation Comments HPV HIGH RISK INTERP (test code = NEGATIVE 17219) HPV 16 (test code = 66090) NEGATIVE HPV 18 (test code = 88346) NEGATIVE HPV, HR, OTHER GENOTYPES (test code NEGATIVE = 36031) HPV HIGH RISK WITH GENOTYPE, [id number] 00:00:00 Test Item Value Reference Range Interpretation Comments HPV HIGH RISK INTERP (test code = NEGATIVE 04410) HPV 16 (test code = 40105) NEGATIVE HPV 18 (test code = 49839) NEGATIVE HPV, HR, OTHER GENOTYPES (test code NEGATIVE = 07409) BV/VAGINITIS PANEL DNA [id number] 00:00:00 Test Item Value Reference Range Interpretation Comments TRICHOMONAS: (test code = NOT DETECTED 6568-0) GARDNERELLA: (test code = DETECTED 6410-5) JUDY: (test code = 22869-6) NOT DETECTED BV/VAGINITIS PANEL DNA [id number] 00:00:00 Test Item Value Reference Range Interpretation Comments TRICHOMONAS: (test code = NOT DETECTED 6568-0) GARDNERELLA: (test code = DETECTED 6410-5) JUDY: (test code = 22649-4) NOT DETECTED BV/VAGINITIS PANEL DNA [id number] 00:00:00 Test Item Value Reference Range Interpretation Comments TRICHOMONAS: (test code = NOT DETECTED 6568-0) GARDNERELLA: (test code = DETECTED 6410-5) JUDY: (test code = 42435-0) NOT DETECTED BV/VAGINITIS PANEL DNA [id number] 00:00:00 Test Item Value Reference Range Interpretation Comments TRICHOMONAS: (test code = NOT DETECTED 6568-0) GARDNERELLA: (test code = DETECTED 6410-5) JUDY: (test code = 40376-9) NOT DETECTED LIPID [id number] 00:00:00 Test Item Value Reference Range Interpretation Comments CHOLESTEROL (test code = 2210) 183 MG/DL TRIGLYCERIDES (test code = 2232) 60 MG/DL HDL CHOLESTEROL (test code = 2220) 72 MG/DL CALC LDL CHOL (test code = 2237) 96 MG/DL RISK RATIO LDL/HDL (test code = 1.33 RATIO 2238) LIPID [id number] 00:00:00 Test Item Value Reference Range Interpretation Comments CHOLESTEROL (test code = 2210) 183 MG/DL TRIGLYCERIDES (test code = 2232) 60 MG/DL HDL CHOLESTEROL (test code = 2220) 72 MG/DL CALC LDL CHOL (test code = 2237) 96 MG/DL RISK RATIO LDL/HDL (test code = 1.33 RATIO 2238) COMPREHENSIVE METABOLIC [id number] 00:00:00 Test Item Value Reference Range Interpretation Comments GLUCOSE (test code = 2217) 94 MG/DL BUN (test code = 2208) 13 MG/DL CREATININE (test code = 2214) 0.73 MG/DL eGFR AMER. (test code 106 ML/MIN/1.73 = 88818) eGFR NON- AMER. (test 91 ML/MIN/1.73 code = 33464) CALC BUN/CREAT (test code = 18 RATIO 2235) SODIUM (test code = 2231) 145 MEQ/L POTASSIUM (test code = 2228) 4.7 MEQ/L CHLORIDE (test code = 2215) 108 MEQ/L CARBON DIOXIDE (test code = 26 MEQ/L 2206) CALCIUM (test code = 2209) 9.7 MG/DL PROTEIN, TOTAL (test code = 7.4 G/DL 2228) ALBUMIN (test code = 2201) 4.4 G/DL CALC GLOBULIN (test code = 3.0 G/DL 2240) CALC A/G RATIO (test code = 1.5 RATIO 2234) BILIRUBIN, TOTAL (test code = 0.2 MG/DL 2206) ALKALINE PHOSPHATASE (test 77 U/L code = 220) AST (test code = 2218) 20 U/L ALT (test code = 2219) 11 U/L COMPREHENSIVE METABOLIC [id number] 00:00:00 Test Item Value Reference Range Interpretation Comments GLUCOSE (test code = 2217) 94 MG/DL BUN (test code = 2208) 13 MG/DL CREATININE (test code = 2214) 0.73 MG/DL eGFR AMER. (test code 106 ML/MIN/1.73 = 06384) eGFR NON- AMER. (test 91 ML/MIN/1.73 code = 55159) CALC BUN/CREAT (test code = 18 RATIO 2235) SODIUM (test code = 2231) 145 MEQ/L POTASSIUM (test code = 2228) 4.7 MEQ/L CHLORIDE (test code = 2215) 108 MEQ/L CARBON DIOXIDE (test code = 26 MEQ/L 2206) CALCIUM (test code = 2209) 9.7 MG/DL PROTEIN, TOTAL (test code = 7.4 G/DL 9) ALBUMIN (test code = 2201) 4.4 G/DL CALC GLOBULIN (test code = 3.0 G/DL 2240) CALC A/G RATIO (test code = 1.5 RATIO 2234) BILIRUBIN, TOTAL (test code = 0.2 MG/DL 2206) ALKALINE PHOSPHATASE (test 77 U/L code = 2204) AST (test code = 2218) 20 U/L ALT (test code = 2219) 11 U/L VITAMIN [id number] 00:00:00 Test Item Value Reference Range Interpretation Comments VITAMIN B-12 (test code = 2840) 639 PG/ML VITAMIN [id number] 00:00:00 Test Item Value Reference Range Interpretation Comments VITAMIN B-12 (test code = 2840) 639 PG/ML VITAMIN [id number] 00:00:00 Test Item Value Reference Range Interpretation Comments VITAMIN B-12 (test code = 2840) 639 PG/ML LIPID [id number] 00:00:00 Test Item Value Reference Range Interpretation Comments CHOLESTEROL (test code = 2210) 183 MG/DL TRIGLYCERIDES (test code = 2232) 60 MG/DL HDL CHOLESTEROL (test code = 2220) 72 MG/DL CALC LDL CHOL (test code = 2237) 96 MG/DL RISK RATIO LDL/HDL (test code = 1.33 RATIO 2238) LIPID [id number] 00:00:00 Test Item Value Reference Range Interpretation Comments CHOLESTEROL (test code = 2210) 183 MG/DL TRIGLYCERIDES (test code = 2232) 60 MG/DL HDL CHOLESTEROL (test code = 2220) 72 MG/DL CALC LDL CHOL (test code = 2237) 96 MG/DL RISK RATIO LDL/HDL (test code = 1.33 RATIO 2238) COMPREHENSIVE METABOLIC [id number] 00:00:00 Test Item Value Reference Range Interpretation Comments GLUCOSE (test code = 2217) 94 MG/DL BUN (test code = 2208) 13 MG/DL CREATININE (test code = 2214) 0.73 MG/DL eGFR AMER. (test code 106 ML/MIN/1.73 = 16151) eGFR NON- AMER. (test 91 ML/MIN/1.73 code = 57840) CALC BUN/CREAT (test code = 18 RATIO 2235) SODIUM (test code = 2231) 145 MEQ/L POTASSIUM (test code = 2228) 4.7 MEQ/L CHLORIDE (test code = 2215) 108 MEQ/L CARBON DIOXIDE (test code = 26 MEQ/L 2205) CALCIUM (test code = 2209) 9.7 MG/DL PROTEIN, TOTAL (test code = 7.4 G/DL 2228) ALBUMIN (test code = 2201) 4.4 G/DL CALC GLOBULIN (test code = 3.0 G/DL 2240) CALC A/G RATIO (test code = 1.5 RATIO 2234) BILIRUBIN, TOTAL (test code = 0.2 MG/DL 2206) ALKALINE PHOSPHATASE (test 77 U/L code = 2204) AST (test code = 2218) 20 U/L ALT (test code = 2219) 11 U/L COMPREHENSIVE METABOLIC [id number] 00:00:00 Test Item Value Reference Range Interpretation Comments GLUCOSE (test code = 2217) 94 MG/DL BUN (test code = 2208) 13 MG/DL CREATININE (test code = 2214) 0.73 MG/DL eGFR AMER. (test code 106 ML/MIN/1.73 = 06493) eGFR NON- AMER. (test 91 ML/MIN/1.73 code = 44101) CALC BUN/CREAT (test code = 18 RATIO 2235) SODIUM (test code = 2231) 145 MEQ/L POTASSIUM (test code = 2228) 4.7 MEQ/L CHLORIDE (test code = 2215) 108 MEQ/L CARBON DIOXIDE (test code = 26 MEQ/L 2205) CALCIUM (test code = 2209) 9.7 MG/DL PROTEIN, TOTAL (test code = 7.4 G/DL 2228) ALBUMIN (test code = 2201) 4.4 G/DL CALC GLOBULIN (test code = 3.0 G/DL 2240) CALC A/G RATIO (test code = 1.5 RATIO 2234) BILIRUBIN, TOTAL (test code = 0.2 MG/DL 2206) ALKALINE PHOSPHATASE (test 77 U/L code = 2204) AST (test code = 2218) 20 U/L ALT (test code = 2219) 11 U/L VITAMIN [id number] 00:00:00 Test Item Value Reference Range Interpretation Comments VITAMIN B-12 (test code = 2840) 639 PG/ML VITAMIN [id number] 00:00:00 Test Item Value Reference Range Interpretation Comments VITAMIN B-12 (test code = 2840) 639 PG/ML VITAMIN [id number] 00:00:00 Test Item Value Reference Range Interpretation Comments VITAMIN B-12 (test code = 2840) 639 PG/ML LIPID [id number] 00:00:00 Test Item Value Reference Range Interpretation Comments CHOLESTEROL (test code = 2210) 183 MG/DL TRIGLYCERIDES (test code = 2232) 60 MG/DL HDL CHOLESTEROL (test code = 2220) 72 MG/DL CALC LDL CHOL (test code = 2237) 96 MG/DL RISK RATIO LDL/HDL (test code = 1.33 RATIO 2238) LIPID [id number] 00:00:00 Test Item Value Reference Range Interpretation Comments CHOLESTEROL (test code = 2210) 183 MG/DL TRIGLYCERIDES (test code = 2232) 60 MG/DL HDL CHOLESTEROL (test code = 2220) 72 MG/DL CALC LDL CHOL (test code = 2237) 96 MG/DL RISK RATIO LDL/HDL (test code = 1.33 RATIO 2238) COMPREHENSIVE METABOLIC [id number] 00:00:00 Test Item Value Reference Range Interpretation Comments GLUCOSE (test code = 2217) 94 MG/DL BUN (test code = 2208) 13 MG/DL CREATININE (test code = 2214) 0.73 MG/DL eGFR AMER. (test code 106 ML/MIN/1.73 = 91985) eGFR NON- AMER. (test 91 ML/MIN/1.73 code = 76222) CALC BUN/CREAT (test code = 18 RATIO 2235) SODIUM (test code = 2231) 145 MEQ/L POTASSIUM (test code = 2228) 4.7 MEQ/L CHLORIDE (test code = 2215) 108 MEQ/L CARBON DIOXIDE (test code = 26 MEQ/L 2205) CALCIUM (test code = 2209) 9.7 MG/DL PROTEIN, TOTAL (test code = 7.4 G/DL 2228) ALBUMIN (test code = 2201) 4.4 G/DL CALC GLOBULIN (test code = 3.0 G/DL 2240) CALC A/G RATIO (test code = 1.5 RATIO 2234) BILIRUBIN, TOTAL (test code = 0.2 MG/DL 2206) ALKALINE PHOSPHATASE (test 77 U/L code = 2204) AST (test code = 2218) 20 U/L ALT (test code = 2219) 11 U/L COMPREHENSIVE METABOLIC [id number] 00:00:00 Test Item Value Reference Range Interpretation Comments GLUCOSE (test code = 2217) 94 MG/DL BUN (test code = 2208) 13 MG/DL CREATININE (test code = 2214) 0.73 MG/DL eGFR AMER. (test code 106 ML/MIN/1.73 = 49627) eGFR NON- AMER. (test 91 ML/MIN/1.73 code = 83415) CALC BUN/CREAT (test code = 18 RATIO 5) SODIUM (test code = 2231) 145 MEQ/L POTASSIUM (test code = 2228) 4.7 MEQ/L CHLORIDE (test code = 2215) 108 MEQ/L CARBON DIOXIDE (test code = 26 MEQ/L 2205) CALCIUM (test code = 220) 9.7 MG/DL PROTEIN, TOTAL (test code = 7.4 G/DL 2228) ALBUMIN (test code = 220) 4.4 G/DL CALC GLOBULIN (test code = 3.0 G/DL 2239) CALC A/G RATIO (test code = 1.5 RATIO 2233) BILIRUBIN, TOTAL (test code = 0.2 MG/DL 2206) ALKALINE PHOSPHATASE (test 77 U/L code = 2204) AST (test code = 2218) 20 U/L ALT (test code = 2219) 11 U/L VITAMIN [id number] 00:00:00 Test Item Value Reference Range Interpretation Comments VITAMIN B-12 (test code = 2840) 639 PG/ML VITAMIN [id number] 00:00:00 Test Item Value Reference Range Interpretation Comments VITAMIN B-12 (test code = 2840) 639 PG/ML VITAMIN [id number] 00:00:00 Test Item Value Reference Range Interpretation Comments VITAMIN B-12 (test code = 2840) 639 PG/ML LIPID [id number] 00:00:00 Test Item Value Reference Range Interpretation Comments CHOLESTEROL (test code = 2210) 183 MG/DL TRIGLYCERIDES (test code = 2232) 60 MG/DL HDL CHOLESTEROL (test code = 2220) 72 MG/DL CALC LDL CHOL (test code = 2237) 96 MG/DL RISK RATIO LDL/HDL (test code = 1.33 RATIO 2238) LIPID [id number] 00:00:00 Test Item Value Reference Range Interpretation Comments CHOLESTEROL (test code = 2210) 183 MG/DL TRIGLYCERIDES (test code = 2232) 60 MG/DL HDL CHOLESTEROL (test code = 2220) 72 MG/DL CALC LDL CHOL (test code = 2237) 96 MG/DL RISK RATIO LDL/HDL (test code = 1.33 RATIO 2238) COMPREHENSIVE METABOLIC [id number] 00:00:00 Test Item Value Reference Range Interpretation Comments GLUCOSE (test code = 2217) 94 MG/DL BUN (test code = 2208) 13 MG/DL CREATININE (test code = 2214) 0.73 MG/DL eGFR AMER. (test code 106 ML/MIN/1.73 = 84656) eGFR NON- AMER. (test 91 ML/MIN/1.73 code = 93063) CALC BUN/CREAT (test code = 18 RATIO 2235) SODIUM (test code = 2231) 145 MEQ/L POTASSIUM (test code = 2228) 4.7 MEQ/L CHLORIDE (test code = 2215) 108 MEQ/L CARBON DIOXIDE (test code = 26 MEQ/L 2205) CALCIUM (test code = 2209) 9.7 MG/DL PROTEIN, TOTAL (test code = 7.4 G/DL 2228) ALBUMIN (test code = 2201) 4.4 G/DL CALC GLOBULIN (test code = 3.0 G/DL 0) CALC A/G RATIO (test code = 1.5 RATIO 2233) BILIRUBIN, TOTAL (test code = 0.2 MG/DL 2206) ALKALINE PHOSPHATASE (test 77 U/L code = 2204) AST (test code = 2218) 20 U/L ALT (test code = 2219) 11 U/L COMPREHENSIVE METABOLIC [id number] 00:00:00 Test Item Value Reference Range Interpretation Comments GLUCOSE (test code = 2217) 94 MG/DL BUN (test code = 2208) 13 MG/DL CREATININE (test code = 2214) 0.73 MG/DL eGFR AMER. (test code 106 ML/MIN/1.73 = 26295) eGFR NON- AMER. (test 91 ML/MIN/1.73 code = 11422) CALC BUN/CREAT (test code = 18 RATIO 2235) SODIUM (test code = 2231) 145 MEQ/L POTASSIUM (test code = 2228) 4.7 MEQ/L CHLORIDE (test code = 2215) 108 MEQ/L CARBON DIOXIDE (test code = 26 MEQ/L 2205) CALCIUM (test code = 2209) 9.7 MG/DL PROTEIN, TOTAL (test code = 7.4 G/DL 2228) ALBUMIN (test code = 2201) 4.4 G/DL CALC GLOBULIN (test code = 3.0 G/DL 0) CALC A/G RATIO (test code = 1.5 RATIO 2233) BILIRUBIN, TOTAL (test code = 0.2 MG/DL 2206) ALKALINE PHOSPHATASE (test 77 U/L code = 2204) AST (test code = 2218) 20 U/L ALT (test code = 2219) 11 U/L VITAMIN [id number] 00:00:00 Test Item Value Reference Range Interpretation Comments VITAMIN B-12 (test code = 2840) 639 PG/ML VITAMIN [id number] 00:00:00 Test Item Value Reference Range Interpretation Comments VITAMIN B-12 (test code = 2840) 639 PG/ML VITAMIN [id number] 00:00:00 Test Item Value Reference Range Interpretation Comments VITAMIN B-12 (test code = 2840) 639 PG/ML CBC W/AUTO [id number] 00:00:00 Test Item Value Reference Range Interpretation Comments WBC (test code = 1001) 7.7 K/UL RBC (test code = 1002) 4.25 M/UL HEMOGLOBIN (test code = 1003) 12.2 G/DL HEMATOCRIT (test code = 1004) 38.6 % MCV (test code = 1005) 90.8 fL MCH (test code = 1006) 28.7 PG MCHC (test code = 1007) 31.6 G/DL RDW (test code = 1038) 13.7 % NEUTROPHILS (test code = 1008) 53.8 % LYMPHOCYTES (test code = 1010) 32.9 % MONOCYTES (test code = 1011) 7.4 % EOSINOPHILS (test code = 1012) 5.1 % BASOPHILS (test code = 1013) 0.8 % PLATELET COUNT (test code = 1015) 374 K/UL CBC W/AUTO [id number] 00:00:00 Test Item Value Reference Range Interpretation Comments WBC (test code = 1001) 7.7 K/UL RBC (test code = 1002) 4.25 M/UL HEMOGLOBIN (test code = 1003) 12.2 G/DL HEMATOCRIT (test code = 1004) 38.6 % MCV (test code = 1005) 90.8 fL MCH (test code = 1006) 28.7 PG MCHC (test code = 1007) 31.6 G/DL RDW (test code = 1038) 13.7 % NEUTROPHILS (test code = 1008) 53.8 % LYMPHOCYTES (test code = 1010) 32.9 % MONOCYTES (test code = 1011) 7.4 % EOSINOPHILS (test code = 1012) 5.1 % BASOPHILS (test code = 1013) 0.8 % PLATELET COUNT (test code = 1015) 374 K/UL CBC W/AUTO [id number] 00:00:00 Test Item Value Reference Range Interpretation Comments WBC (test code = 1001) 7.7 K/UL RBC (test code = 1002) 4.25 M/UL HEMOGLOBIN (test code = 1003) 12.2 G/DL HEMATOCRIT (test code = 1004) 38.6 % MCV (test code = 1005) 90.8 fL MCH (test code = 1006) 28.7 PG MCHC (test code = 1007) 31.6 G/DL RDW (test code = 1038) 13.7 % NEUTROPHILS (test code = 1008) 53.8 % LYMPHOCYTES (test code = 1010) 32.9 % MONOCYTES (test code = 1011) 7.4 % EOSINOPHILS (test code = 1012) 5.1 % BASOPHILS (test code = 1013) 0.8 % PLATELET COUNT (test code = 1015) 374 K/UL HEMOGLOBIN [id number] 00:00:00 Test Item Value Reference Range Interpretation Comments HEMOGLOBIN A1c (test code = 67184) 5.1 % HEMOGLOBIN [id number] 00:00:00 Test Item Value Reference Range Interpretation Comments HEMOGLOBIN A1c (test code = 32420) 5.1 % HEMOGLOBIN [id number] 00:00:00 Test Item Value Reference Range Interpretation Comments HEMOGLOBIN A1c (test code = 37711) 5.1 % CBC W/AUTO [id number] 00:00:00 Test Item Value Reference Range Interpretation Comments WBC (test code = 1001) 7.7 K/UL RBC (test code = 1002) 4.25 M/UL HEMOGLOBIN (test code = 1003) 12.2 G/DL HEMATOCRIT (test code = 1004) 38.6 % MCV (test code = 1005) 90.8 fL MCH (test code = 1006) 28.7 PG MCHC (test code = 1007) 31.6 G/DL RDW (test code = 1038) 13.7 % NEUTROPHILS (test code = 1008) 53.8 % LYMPHOCYTES (test code = 1010) 32.9 % MONOCYTES (test code = 1011) 7.4 % EOSINOPHILS (test code = 1012) 5.1 % BASOPHILS (test code = 1013) 0.8 % PLATELET COUNT (test code = 1015) 374 K/UL CBC W/AUTO [id number] 00:00:00 Test Item Value Reference Range Interpretation Comments WBC (test code = 1001) 7.7 K/UL RBC (test code = 1002) 4.25 M/UL HEMOGLOBIN (test code = 1003) 12.2 G/DL HEMATOCRIT (test code = 1004) 38.6 % MCV (test code = 1005) 90.8 fL MCH (test code = 1006) 28.7 PG MCHC (test code = 1007) 31.6 G/DL RDW (test code = 1038) 13.7 % NEUTROPHILS (test code = 1008) 53.8 % LYMPHOCYTES (test code = 1010) 32.9 % MONOCYTES (test code = 1011) 7.4 % EOSINOPHILS (test code = 1012) 5.1 % BASOPHILS (test code = 1013) 0.8 % PLATELET COUNT (test code = 1015) 374 K/UL CBC W/AUTO [id number] 00:00:00 Test Item Value Reference Range Interpretation Comments WBC (test code = 1001) 7.7 K/UL RBC (test code = 1002) 4.25 M/UL HEMOGLOBIN (test code = 1003) 12.2 G/DL HEMATOCRIT (test code = 1004) 38.6 % MCV (test code = 1005) 90.8 fL MCH (test code = 1006) 28.7 PG MCHC (test code = 1007) 31.6 G/DL RDW (test code = 1038) 13.7 % NEUTROPHILS (test code = 1008) 53.8 % LYMPHOCYTES (test code = 1010) 32.9 % MONOCYTES (test code = 1011) 7.4 % EOSINOPHILS (test code = 1012) 5.1 % BASOPHILS (test code = 1013) 0.8 % PLATELET COUNT (test code = 1015) 374 K/UL HEMOGLOBIN [id number] 00:00:00 Test Item Value Reference Range Interpretation Comments HEMOGLOBIN A1c (test code = 01075) 5.1 % HEMOGLOBIN [id number] 00:00:00 Test Item Value Reference Range Interpretation Comments HEMOGLOBIN A1c (test code = 78695) 5.1 % HEMOGLOBIN [id number] 00:00:00 Test Item Value Reference Range Interpretation Comments HEMOGLOBIN A1c (test code = 04328) 5.1 % CBC W/AUTO [id number] 00:00:00 Test Item Value Reference Range Interpretation Comments WBC (test code = 1001) 7.7 K/UL RBC (test code = 1002) 4.25 M/UL HEMOGLOBIN (test code = 1003) 12.2 G/DL HEMATOCRIT (test code = 1004) 38.6 % MCV (test code = 1005) 90.8 fL MCH (test code = 1006) 28.7 PG MCHC (test code = 1007) 31.6 G/DL RDW (test code = 1038) 13.7 % NEUTROPHILS (test code = 1008) 53.8 % LYMPHOCYTES (test code = 1010) 32.9 % MONOCYTES (test code = 1011) 7.4 % EOSINOPHILS (test code = 1012) 5.1 % BASOPHILS (test code = 1013) 0.8 % PLATELET COUNT (test code = 1015) 374 K/UL CBC W/AUTO [id number] 00:00:00 Test Item Value Reference Range Interpretation Comments WBC (test code = 1001) 7.7 K/UL RBC (test code = 1002) 4.25 M/UL HEMOGLOBIN (test code = 1003) 12.2 G/DL HEMATOCRIT (test code = 1004) 38.6 % MCV (test code = 1005) 90.8 fL MCH (test code = 1006) 28.7 PG MCHC (test code = 1007) 31.6 G/DL RDW (test code = 1038) 13.7 % NEUTROPHILS (test code = 1008) 53.8 % LYMPHOCYTES (test code = 1010) 32.9 % MONOCYTES (test code = 1011) 7.4 % EOSINOPHILS (test code = 1012) 5.1 % BASOPHILS (test code = 1013) 0.8 % PLATELET COUNT (test code = 1015) 374 K/UL CBC W/AUTO [id number] 00:00:00 Test Item Value Reference Range Interpretation Comments WBC (test code = 1001) 7.7 K/UL RBC (test code = 1002) 4.25 M/UL HEMOGLOBIN (test code = 1003) 12.2 G/DL HEMATOCRIT (test code = 1004) 38.6 % MCV (test code = 1005) 90.8 fL MCH (test code = 1006) 28.7 PG MCHC (test code = 1007) 31.6 G/DL RDW (test code = 1038) 13.7 % NEUTROPHILS (test code = 1008) 53.8 % LYMPHOCYTES (test code = 1010) 32.9 % MONOCYTES (test code = 1011) 7.4 % EOSINOPHILS (test code = 1012) 5.1 % BASOPHILS (test code = 1013) 0.8 % PLATELET COUNT (test code = 1015) 374 K/UL HEMOGLOBIN [id number] 00:00:00 Test Item Value Reference Range Interpretation Comments HEMOGLOBIN A1c (test code = 49538) 5.1 % HEMOGLOBIN [id number] 00:00:00 Test Item Value Reference Range Interpretation Comments HEMOGLOBIN A1c (test code = 79131) 5.1 % HEMOGLOBIN [id number] 00:00:00 Test Item Value Reference Range Interpretation Comments HEMOGLOBIN A1c (test code = 52964) 5.1 % CBC W/AUTO [id number] 00:00:00 Test Item Value Reference Range Interpretation Comments WBC (test code = 1001) 7.7 K/UL RBC (test code = 1002) 4.25 M/UL HEMOGLOBIN (test code = 1003) 12.2 G/DL HEMATOCRIT (test code = 1004) 38.6 % MCV (test code = 1005) 90.8 fL MCH (test code = 1006) 28.7 PG MCHC (test code = 1007) 31.6 G/DL RDW (test code = 1038) 13.7 % NEUTROPHILS (test code = 1008) 53.8 % LYMPHOCYTES (test code = 1010) 32.9 % MONOCYTES (test code = 1011) 7.4 % EOSINOPHILS (test code = 1012) 5.1 % BASOPHILS (test code = 1013) 0.8 % PLATELET COUNT (test code = 1015) 374 K/UL CBC W/AUTO [id number] 00:00:00 Test Item Value Reference Range Interpretation Comments WBC (test code = 1001) 7.7 K/UL RBC (test code = 1002) 4.25 M/UL HEMOGLOBIN (test code = 1003) 12.2 G/DL HEMATOCRIT (test code = 1004) 38.6 % MCV (test code = 1005) 90.8 fL MCH (test code = 1006) 28.7 PG MCHC (test code = 1007) 31.6 G/DL RDW (test code = 1038) 13.7 % NEUTROPHILS (test code = 1008) 53.8 % LYMPHOCYTES (test code = 1010) 32.9 % MONOCYTES (test code = 1011) 7.4 % EOSINOPHILS (test code = 1012) 5.1 % BASOPHILS (test code = 1013) 0.8 % PLATELET COUNT (test code = 1015) 374 K/UL CBC W/AUTO [id number] 00:00:00 Test Item Value Reference Range Interpretation Comments WBC (test code = 1001) 7.7 K/UL RBC (test code = 1002) 4.25 M/UL HEMOGLOBIN (test code = 1003) 12.2 G/DL HEMATOCRIT (test code = 1004) 38.6 % MCV (test code = 1005) 90.8 fL MCH (test code = 1006) 28.7 PG MCHC (test code = 1007) 31.6 G/DL RDW (test code = 1038) 13.7 % NEUTROPHILS (test code = 1008) 53.8 % LYMPHOCYTES (test code = 1010) 32.9 % MONOCYTES (test code = 1011) 7.4 % EOSINOPHILS (test code = 1012) 5.1 % BASOPHILS (test code = 1013) 0.8 % PLATELET COUNT (test code = 1015) 374 K/UL HEMOGLOBIN [id number] 00:00:00 Test Item Value Reference Range Interpretation Comments HEMOGLOBIN A1c (test code = 39272) 5.1 % HEMOGLOBIN [id number] 00:00:00 Test Item Value Reference Range Interpretation Comments HEMOGLOBIN A1c (test code = 84854) 5.1 % HEMOGLOBIN [id number] 00:00:00 Test Item Value Reference Range Interpretation Comments HEMOGLOBIN A1c (test code = 06306) 5.1 % SARS-CoV-2 (COVID-19) by RT-PCR (HIGH RISK)2020-03-29 00:00:00 Test Item Value Reference Range Interpretation Comments SARS-CoV-2 INTERPRETATION (test NEGATIVE code = 10448) SOURCE (test code = 88320) NOT SPECIFIED SARS-CoV-2 (COVID-19) by RT-PCR (HIGH RISK)2020-03-29 00:00:00 Test Item Value Reference Range Interpretation Comments SARS-CoV-2 INTERPRETATION (test NEGATIVE code = 16721) SOURCE (test code = 53883) NOT SPECIFIED SARS-CoV-2 (COVID-19) by RT-PCR (HIGH RISK)2020-03-29 00:00:00 Test Item Value Reference Range Interpretation Comments SARS-CoV-2 INTERPRETATION (test NEGATIVE code = 79397) SOURCE (test code = 48646) NOT SPECIFIED SARS-CoV-2 (COVID-19) by RT-PCR (HIGH RISK)2020-03-29 00:00:00 Test Item Value Reference Range Interpretation Comments SARS-CoV-2 INTERPRETATION (test NEGATIVE code = 75159) SOURCE (test code = 51954) NOT SPECIFIED SARS-CoV-2 (COVID-19) by RT-PCR (HIGH RISK)2020-03-29 00:00:00 Test Item Value Reference Range Interpretation Comments SARS-CoV-2 INTERPRETATION (test NEGATIVE code = 24083) SOURCE (test code = 16761) NOT SPECIFIED SARS-CoV-2 (COVID-19) by RT-PCR (HIGH RISK)2020-03-29 00:00:00 Test Item Value Reference Range Interpretation Comments SARS-CoV-2 INTERPRETATION (test NEGATIVE code = 69456) SOURCE (test code = 62689) NOT SPECIFIED SARS-CoV-2 (COVID-19) by RT-PCR (HIGH RISK)2020-03-29 00:00:00 Test Item Value Reference Range Interpretation Comments SARS-CoV-2 INTERPRETATION (test NEGATIVE code = 67857) SOURCE (test code = 79335) NOT SPECIFIED SARS-CoV-2 (COVID-19) by RT-PCR (HIGH RISK)2020-03-29 00:00:00 Test Item Value Reference Range Interpretation Comments SARS-CoV-2 INTERPRETATION (test NEGATIVE code = 24201) SOURCE (test code = 27668) NOT SPECIFIED VAGINAL PATHOGENS DNA [id number] 00:00:00 Test Item Value Reference Range Interpretation Comments JUDY SPECIES (test code = 76560) NEGATIVE G. VAGINALIS (test code = 28102) POSITIVE T. VAGINALIS (test code = 86190) NEGATIVE VAGINAL PATHOGENS DNA [id number] 00:00:00 Test Item Value Reference Range Interpretation Comments JUDY SPECIES (test code = 14474) NEGATIVE G. VAGINALIS (test code = 81777) POSITIVE T. VAGINALIS (test code = 40957) NEGATIVE VAGINAL PATHOGENS DNA [id number] 00:00:00 Test Item Value Reference Range Interpretation Comments JUDY SPECIES (test code = 74572) NEGATIVE G. VAGINALIS (test code = 34622) POSITIVE T. VAGINALIS (test code = 27762) NEGATIVE VAGINAL PATHOGENS DNA [id number] 00:00:00 Test Item Value Reference Range Interpretation Comments JUDY SPECIES (test code = 20267) NEGATIVE G. VAGINALIS (test code = 11742) POSITIVE T. VAGINALIS (test code = 17516) NEGATIVE VAGINAL PATHOGENS DNA [id number] 00:00:00 Test Item Value Reference Range Interpretation Comments JUDY SPECIES (test code = 70023) NEGATIVE G. VAGINALIS (test code = 43036) POSITIVE T. VAGINALIS (test code = 55612) NEGATIVE VAGINAL PATHOGENS DNA [id number] 00:00:00 Test Item Value Reference Range Interpretation Comments JUDY SPECIES (test code = 76948) NEGATIVE G. VAGINALIS (test code = 55686) POSITIVE T. VAGINALIS (test code = 28920) NEGATIVE VAGINAL PATHOGENS DNA [id number] 00:00:00 Test Item Value Reference Range Interpretation Comments JUDY SPECIES (test code = 77544) NEGATIVE G. VAGINALIS (test code = 52845) POSITIVE T. VAGINALIS (test code = 28715) NEGATIVE VAGINAL PATHOGENS DNA [id number] 00:00:00 Test Item Value Reference Range Interpretation Comments JUDY SPECIES (test code = 02841) NEGATIVE G. VAGINALIS (test code = 31323) POSITIVE T. VAGINALIS (test code = 97801) NEGATIVE SURGICAL PATHOLOGY [id number] 00:00:00 Test Item Value Reference Range Interpretation Comments DIAGNOSIS: (test code = 8200) (NOTE) MICROSCOPIC DESCRIPTION: (test code = (NOTE) 8210) CLINICAL DATA: (test code = 8401) (NOTE) GROSS DESCRIPTION: (test code = 8220) (NOTE) PATHOLOGIST: (test code = 8250) (NOTE) CPT: (test code = 8400) (NOTE) SURGICAL PATHOLOGY [id number] 00:00:00 Test Item Value Reference Range Interpretation Comments DIAGNOSIS: (test code = 8200) (NOTE) MICROSCOPIC DESCRIPTION: (test code = (NOTE) 8210) CLINICAL DATA: (test code = 8401) (NOTE) GROSS DESCRIPTION: (test code = 8220) (NOTE) PATHOLOGIST: (test code = 8250) (NOTE) CPT: (test code = 8400) (NOTE) SURGICAL PATHOLOGY [id number] 00:00:00 Test Item Value Reference Range Interpretation Comments DIAGNOSIS: (test code = 8200) (NOTE) MICROSCOPIC DESCRIPTION: (test code = (NOTE) 8210) CLINICAL DATA: (test code = 8401) (NOTE) GROSS DESCRIPTION: (test code = 8220) (NOTE) PATHOLOGIST: (test code = 8250) (NOTE) CPT: (test code = 8400) (NOTE) SURGICAL PATHOLOGY [id number] 00:00:00 Test Item Value Reference Range Interpretation Comments DIAGNOSIS: (test code = 8200) (NOTE) MICROSCOPIC DESCRIPTION: (test code = (NOTE) 8210) CLINICAL DATA: (test code = 8401) (NOTE) GROSS DESCRIPTION: (test code = 8220) (NOTE) PATHOLOGIST: (test code = 8250) (NOTE) CPT: (test code = 8400) (NOTE) SURGICAL PATHOLOGY [id number] 00:00:00 Test Item Value Reference Range Interpretation Comments DIAGNOSIS: (test code = 8200) (NOTE) MICROSCOPIC DESCRIPTION: (test code = (NOTE) 8210) CLINICAL DATA: (test code = 8401) (NOTE) GROSS DESCRIPTION: (test code = 8220) (NOTE) PATHOLOGIST: (test code = 8250) (NOTE) CPT: (test code = 8400) (NOTE) SURGICAL PATHOLOGY [id number] 00:00:00 Test Item Value Reference Range Interpretation Comments DIAGNOSIS: (test code = 8200) (NOTE) MICROSCOPIC DESCRIPTION: (test code = (NOTE) 8210) CLINICAL DATA: (test code = 8401) (NOTE) GROSS DESCRIPTION: (test code = 8220) (NOTE) PATHOLOGIST: (test code = 8250) (NOTE) CPT: (test code = 8400) (NOTE) SURGICAL PATHOLOGY [id number] 00:00:00 Test Item Value Reference Range Interpretation Comments DIAGNOSIS: (test code = 8200) (NOTE) MICROSCOPIC DESCRIPTION: (test code = (NOTE) 8210) CLINICAL DATA: (test code = 8401) (NOTE) GROSS DESCRIPTION: (test code = 8220) (NOTE) PATHOLOGIST: (test code = 8250) (NOTE) CPT: (test code = 8400) (NOTE) SURGICAL PATHOLOGY [id number] 00:00:00 Test Item Value Reference Range Interpretation Comments DIAGNOSIS: (test code = 8200) (NOTE) MICROSCOPIC DESCRIPTION: (test code = (NOTE) 8210) CLINICAL DATA: (test code = 8401) (NOTE) GROSS DESCRIPTION: (test code = 8220) (NOTE) PATHOLOGIST: (test code = 8250) (NOTE) CPT: (test code = 8400) (NOTE) TISSUE PATHOLOGY [ADDED]2020-02-10 00:00:00 Test Item Value Reference Range Interpretation Comments C CLINICAL IMPRESSION (test code = ) DNR CLINICAL INFORMATION (test code = 66014-2) PATHOLOGIST (test code = 78020-7) C COMMENT (test code = 88610-2) DNR C SOURCE (test code = 88399-7) C PROCEDURE (test code = 51443-0) Biopsy C GROSS DESCRIPTION (test code = 77394-6) C MICRO DESCRIPTION (test code = 49210-0) C DIAGNOSIS (test code = 91474-0) TISSUE PATHOLOGY [ADDED]2020-02-10 00:00:00 Test Item Value Reference Range Interpretation Comments C CLINICAL IMPRESSION (test code = ) DNR CLINICAL INFORMATION (test code = 93032-2) PATHOLOGIST (test code = 01424-2) C COMMENT (test code = 01634-5) DNR C SOURCE (test code = 22584-1) C PROCEDURE (test code = 65635-5) Biopsy C GROSS DESCRIPTION (test code = 46796-5) C MICRO DESCRIPTION (test code = 79682-3) C DIAGNOSIS (test code = 13010-1) TISSUE PATHOLOGY [ADDED]2020-02-10 00:00:00 Test Item Value Reference Range Interpretation Comments C CLINICAL IMPRESSION (test code = ) DNR CLINICAL INFORMATION (test code = 25005-9) PATHOLOGIST (test code = 35382-0) C COMMENT (test code = 95705-4) DNR C SOURCE (test code = 81304-0) C PROCEDURE (test code = 89156-7) Biopsy C GROSS DESCRIPTION (test code = 30871-5) C MICRO DESCRIPTION (test code = 93009-3) C DIAGNOSIS (test code = 63897-9) TISSUE PATHOLOGY [ADDED]2020-02-10 00:00:00 Test Item Value Reference Range Interpretation Comments C CLINICAL IMPRESSION (test code = ) DNR CLINICAL INFORMATION (test code = 32216-1) PATHOLOGIST (test code = 86065-3) C COMMENT (test code = 33609-8) DNR C SOURCE (test code = 75384-4) C PROCEDURE (test code = 94515-1) Biopsy C GROSS DESCRIPTION (test code = 82082-0) C MICRO DESCRIPTION (test code = 37103-1) C DIAGNOSIS (test code = 34106-0) PAP TEST, THINPREP, [id number] 00:00:00 Test Item Value Reference Range Interpretation Comments SOURCE: (test code = 8001) Cervical/Endocervic al SLIDES: (test code = 8011) 1 LMP: (test code = 8021) SEE NOTE SPECIMEN ADEQUACY: (test (NOTE) code = 98940) INTERPRETATION: (test code LSIL/EPITH. = 08347) ABNORMALITY; SEE BELOW OTHER COMMENTS: (test code (NOTE) = 8081) HIGHWALL DRILL OPERATOR: (test Milagro code = 8101) JENNIFER Eller(ASCP) PATHOLOGIST INTERPRETATION Josiah Franco BY: (test code = 8122) LOCATION: (test code = (NOTE) 17310) CPT: (test code = 8140) (NOTE) PAP TEST, THINPREP, [id number] 00:00:00 Test Item Value Reference Range Interpretation Comments SOURCE: (test code = 8001) Cervical/Endocervic al SLIDES: (test code = 8011) 1 LMP: (test code = 8021) SEE NOTE SPECIMEN ADEQUACY: (test (NOTE) code = 61618) INTERPRETATION: (test code LSIL/EPITH. = 92083) ABNORMALITY; SEE BELOW OTHER COMMENTS: (test code (NOTE) = 8081) HIGHWALL DRILL OPERATOR: (test Milagro code = 8101) JENNIFER Eller(ASCP) PATHOLOGIST INTERPRETATION Josiah Franco BY: (test code = 8122) LOCATION: (test code = (NOTE) 29392) CPT: (test code = 8140) (NOTE) PAP TEST, THINPREP, [id number] 00:00:00 Test Item Value Reference Range Interpretation Comments SOURCE: (test code = 8001) Cervical/Endocervic al SLIDES: (test code = 8011) 1 LMP: (test code = 8021) SEE NOTE SPECIMEN ADEQUACY: (test (NOTE) code = 90402) INTERPRETATION: (test code LSIL/EPITH. = 80845) ABNORMALITY; SEE BELOW OTHER COMMENTS: (test code (NOTE) = 8081) HIGHWALL DRILL OPERATOR: (test Milagro code = 8101) JENNIFER Eller(ASCP) PATHOLOGIST INTERPRETATION Josiah Franco BY: (test code = 8122) LOCATION: (test code = (NOTE) 78251) CPT: (test code = 8140) (NOTE) PAP TEST, THINPREP, [id number] 00:00:00 Test Item Value Reference Range Interpretation Comments SOURCE: (test code = 8001) Cervical/Endocervic al SLIDES: (test code = 8011) 1 LMP: (test code = 8021) SEE NOTE SPECIMEN ADEQUACY: (test (NOTE) code = 38499) INTERPRETATION: (test code LSIL/EPITH. = 51582) ABNORMALITY; SEE BELOW OTHER COMMENTS: (test code (NOTE) = 8081) HIGHWALL DRILL OPERATOR: (test Milagro code = 8101) JENNIFER Eller(ASCP) PATHOLOGIST INTERPRETATION Josiah Franco BY: (test code = 8122) LOCATION: (test code = (NOTE) 94473) CPT: (test code = 8140) (NOTE) PAP TEST, THINPREP, [id number] 00:00:00 Test Item Value Reference Range Interpretation Comments SOURCE: (test code = 8001) Cervical/Endocervic al SLIDES: (test code = 8011) 1 LMP: (test code = 8021) SEE NOTE SPECIMEN ADEQUACY: (test (NOTE) code = 71663) INTERPRETATION: (test code LSIL/EPITH. = 97425) ABNORMALITY; SEE BELOW OTHER COMMENTS: (test code (NOTE) = 8081) HIGHWALL DRILL OPERATOR: (test Milagro code = 8101) JENNIFER Eller(ASCP) PATHOLOGIST INTERPRETATION Josiah Franco BY: (test code = 8122) LOCATION: (test code = (NOTE) 33335) CPT: (test code = 8140) (NOTE) PAP TEST, THINPREP, [id number] 00:00:00 Test Item Value Reference Range Interpretation Comments SOURCE: (test code = 8001) Cervical/Endocervic al SLIDES: (test code = 8011) 1 LMP: (test code = 8021) SEE NOTE SPECIMEN ADEQUACY: (test (NOTE) code = 88502) INTERPRETATION: (test code LSIL/EPITH. = 93886) ABNORMALITY; SEE BELOW OTHER COMMENTS: (test code (NOTE) = 8081) HIGHWALL DRILL OPERATOR: (test Milagro code = 8101) JENNIFER Eller(ASCP) PATHOLOGIST INTERPRETATION Josiah Franco BY: (test code = 8122) LOCATION: (test code = (NOTE) 40475) CPT: (test code = 8140) (NOTE) PAP TEST, THINPREP, [id number] 00:00:00 Test Item Value Reference Range Interpretation Comments SOURCE: (test code = 8001) Cervical/Endocervic al SLIDES: (test code = 8011) 1 LMP: (test code = 8021) SEE NOTE SPECIMEN ADEQUACY: (test (NOTE) code = 34417) INTERPRETATION: (test code LSIL/EPITH. = 93901) ABNORMALITY; SEE BELOW OTHER COMMENTS: (test code (NOTE) = 8081) HIGHWALL DRILL OPERATOR: (test Milagro code = 8101) JENNIFER Eller(ASCP) PATHOLOGIST INTERPRETATION Josiah Franco BY: (test code = 8122) LOCATION: (test code = (NOTE) 80994) CPT: (test code = 8140) (NOTE) PAP TEST, THINPREP, [id number] 00:00:00 Test Item Value Reference Range Interpretation Comments SOURCE: (test code = 8001) Cervical/Endocervic al SLIDES: (test code = 8011) 1 LMP: (test code = 8021) SEE NOTE SPECIMEN ADEQUACY: (test (NOTE) code = 12596) INTERPRETATION: (test code LSIL/EPITH. = 45179) ABNORMALITY; SEE BELOW OTHER COMMENTS: (test code (NOTE) = 8081) HIGHWALL DRILL OPERATOR: (test Milagro code = 8101) JENNIFER Eller(ASCP) PATHOLOGIST INTERPRETATION Josiah Franco BY: (test code = 8122) LOCATION: (test code = (NOTE) 70643) CPT: (test code = 8140) (NOTE) HPV HIGH RISK WITH GENOTYPE, [id number] 00:00:00 Test Item Value Reference Range Interpretation Comments HPV HIGH RISK INTERP (test code = POSITIVE 65998) HPV 16 (test code = 91993) NEGATIVE HPV 18 (test code = 57588) NEGATIVE HPV, HR, OTHER GENOTYPES (test code POSITIVE = 60740) HPV HIGH RISK WITH GENOTYPE, [id number] 00:00:00 Test Item Value Reference Range Interpretation Comments HPV HIGH RISK INTERP (test code = POSITIVE 07112) HPV 16 (test code = 36014) NEGATIVE HPV 18 (test code = 77016) NEGATIVE HPV, HR, OTHER GENOTYPES (test code POSITIVE = 68313) HPV HIGH RISK WITH GENOTYPE, [id number] 00:00:00 Test Item Value Reference Range Interpretation Comments HPV HIGH RISK INTERP (test code = POSITIVE 99887) HPV 16 (test code = 60974) NEGATIVE HPV 18 (test code = 16516) NEGATIVE HPV, HR, OTHER GENOTYPES (test code POSITIVE = 01426) HPV HIGH RISK WITH GENOTYPE, [id number] 00:00:00 Test Item Value Reference Range Interpretation Comments HPV HIGH RISK INTERP (test code = POSITIVE 17364) HPV 16 (test code = 89571) NEGATIVE HPV 18 (test code = 79737) NEGATIVE HPV, HR, OTHER GENOTYPES (test code POSITIVE = 30975) HPV HIGH RISK WITH GENOTYPE, [id number] 00:00:00 Test Item Value Reference Range Interpretation Comments HPV HIGH RISK INTERP (test code = POSITIVE 85840) HPV 16 (test code = 81825) NEGATIVE HPV 18 (test code = 43614) NEGATIVE HPV, HR, OTHER GENOTYPES (test code POSITIVE = 12406) HPV HIGH RISK WITH GENOTYPE, [id number] 00:00:00 Test Item Value Reference Range Interpretation Comments HPV HIGH RISK INTERP (test code = POSITIVE 05139) HPV 16 (test code = 50361) NEGATIVE HPV 18 (test code = 11956) NEGATIVE HPV, HR, OTHER GENOTYPES (test code POSITIVE = 38386) HPV HIGH RISK WITH GENOTYPE, [id number] 00:00:00 Test Item Value Reference Range Interpretation Comments HPV HIGH RISK INTERP (test code = POSITIVE 61476) HPV 16 (test code = 94483) NEGATIVE HPV 18 (test code = 86882) NEGATIVE HPV, HR, OTHER GENOTYPES (test code POSITIVE = 60624) HPV HIGH RISK WITH GENOTYPE, [id number] 00:00:00 Test Item Value Reference Range Interpretation Comments HPV HIGH RISK INTERP (test code = POSITIVE 23861) HPV 16 (test code = 97649) NEGATIVE HPV 18 (test code = 97245) NEGATIVE HPV, HR, OTHER GENOTYPES (test code POSITIVE = 77530) CBC (INCLUDES DIFF/PLT)2019-05-23 00:00:00 Test Item Value Reference Range Interpretation Comments WHITE BLOOD CELL COUNT (test 8.1 Thousand/uL code = 6690-2) RED BLOOD CELL COUNT (test 4.26 Million/uL code = 789-8) HEMOGLOBIN (test code = 12.4 g/dL 718-7) HEMATOCRIT (test code = 38.8 % 4544-3) MCV (test code = 787-2) 91.1 fL MCH (test code = 785-6) 29.1 pg MCHC (test code = 786-4) 32.0 g/dL RDW (test code = 788-0) 13.2 % PLATELET COUNT (test code = 356 Thousand/uL 777-3) MPV (test code = 776-5) 10.2 fL ABSOLUTE NEUTROPHILS (test 3912 cells/uL code = 751-8) ABSOLUTE BAND NEUTROPHILS DNR cells/uL (test code = 63067-6) ABSOLUTE METAMYELOCYTES (test DNR cells/uL code = 20888-8) ABSOLUTE MYELOCYTES (test DNR cells/uL code = 33902-5) ABSOLUTE PROMYELOCYTES (test DNR cells/uL code = 18987-8) ABSOLUTE LYMPHOCYTES (test 3281 cells/uL code = 731-0) ABSOLUTE MONOCYTES (test code 608 cells/uL = 742-7) ABSOLUTE EOSINOPHILS (test 251 cells/uL code = 711-2) ABSOLUTE BASOPHILS (test code 49 cells/uL = 704-7) ABSOLUTE BLASTS (test code = DNR cells/uL 25748-3) ABSOLUTE NUCLEATED RBC (test DNR cells/uL code = 01152-1) NEUTROPHILS (test code = 48.3 % 770-8) BAND NEUTROPHILS (test code = DNR % 764-1) METAMYELOCYTES (test code = DNR % 740-1) MYELOCYTES (test code = DNR % 749-2) PROMYELOCYTES (test code = DNR % 783-1) LYMPHOCYTES (test code = 40.5 % 736-9) REACTIVE LYMPHOCYTES (test DNR % code = 20894-9) MONOCYTES (test code = 7.5 % 5905-5) EOSINOPHILS (test code = 3.1 % 713-8) BASOPHILS (test code = 706-2) 0.6 % BLASTS (test code = 709-6) DNR % NUCLEATED RBC (test code = DNR /100WBC 69802-5) COMMENT(S) (test code = DNR 8251-1) LIPID PANEL (REFL)2019-05-23 00:00:00 Test Item Value Reference Range Interpretation Comments CHOLESTEROL, TOTAL (test code 177 mg/dL = 2093-3) HDL CHOLESTEROL (test code = 62 mg/dL 2085-9) TRIGLYCERIDES (test code = 114 mg/dL 2571-8) LDL-CHOLESTEROL (test code = 94 mg/dL(calc) 15115-0) CHOL/HDLC RATIO (test code = 2.9 (calc) 9830-1) NON HDL CHOLESTEROL (test 115 mg/dL(calc) code = 56968-9) COMPREHENSIVE METABOLIC [id number] 00:00:00 Test Item Value Reference Range Interpretation Comments GLUCOSE (test code = 73 mg/dL 2345-7) UREA NITROGEN (BUN) 17 mg/dL (test code = 3094-0) CREATININE (test code = 0.78 mg/dL 2160-0) eGFR NON-AFR. CENTRAL AFRICAN 85 mL/min/1.73m2 (test code = 80970-6) eGFR 98 mL/min/1.73m2 (test code = 10341-2) BUN/CREATININE RATIO NOT APPLICABLE (calc) (test code = 3097-3) SODIUM (test code = 143 mmol/L 2951-2) POTASSIUM (test code = 4.6 mmol/L 2823-3) CHLORIDE (test code = 107 mmol/L 5-0) CARBON DIOXIDE (test 27 mmol/L code = 2027-9) CALCIUM (test code = 9.4 mg/dL 59493-6) PROTEIN, TOTAL (test 7.0 g/dL code = 2885-2) ALBUMIN (test code = 4.2 g/dL 1751-7) GLOBULIN (test code = 2.8 g/dL(calc) 81334-1) ALBUMIN/GLOBULIN RATIO 1.5 (calc) (test code = 1759-0) BILIRUBIN, TOTAL (test 0.5 mg/dL code = 1974-2) ALKALINE PHOSPHATASE 72 U/L (test code = 6768-6) AST (test code = 18 U/L 1920-8) ALT (test code = 12 U/L 1742-6) HEMOGLOBIN [id number] 00:00:00 Test Item Value Reference Range Interpretation Comments [facility] ([facility] = 4[facility]7 [facility] CBC (INCLUDES DIFF/PLT)2019-05-23 00:00:00 Test Item Value Reference Range Interpretation Comments WHITE BLOOD CELL COUNT (test 8.1 Thousand/uL code = 6690-2) RED BLOOD CELL COUNT (test 4.26 Million/uL code = 789-8) HEMOGLOBIN (test code = 12.4 g/dL 718-7) HEMATOCRIT (test code = 38.8 % 4544-3) MCV (test code = 787-2) 91.1 fL MCH (test code = 785-6) 29.1 pg MCHC (test code = 786-4) 32.0 g/dL RDW (test code = 788-0) 13.2 % PLATELET COUNT (test code = 356 Thousand/uL 777-3) MPV (test code = 776-5) 10.2 fL ABSOLUTE NEUTROPHILS (test 3912 cells/uL code = 751-8) ABSOLUTE BAND NEUTROPHILS DNR cells/uL (test code = 85426-7) ABSOLUTE METAMYELOCYTES (test DNR cells/uL code = 80717-6) ABSOLUTE MYELOCYTES (test DNR cells/uL code = 48581-1) ABSOLUTE PROMYELOCYTES (test DNR cells/uL code = 90515-4) ABSOLUTE LYMPHOCYTES (test 3281 cells/uL code = 731-0) ABSOLUTE MONOCYTES (test code 608 cells/uL = 742-7) ABSOLUTE EOSINOPHILS (test 251 cells/uL code = 711-2) ABSOLUTE BASOPHILS (test code 49 cells/uL = 704-7) ABSOLUTE BLASTS (test code = DNR cells/uL 78695-3) ABSOLUTE NUCLEATED RBC (test DNR cells/uL code = 17730-5) NEUTROPHILS (test code = 48.3 % 770-8) BAND NEUTROPHILS (test code = DNR % 764-1) METAMYELOCYTES (test code = DNR % 740-1) MYELOCYTES (test code = DNR % 749-2) PROMYELOCYTES (test code = DNR % 783-1) LYMPHOCYTES (test code = 40.5 % 736-9) REACTIVE LYMPHOCYTES (test DNR % code = 77698-5) MONOCYTES (test code = 7.5 % 5905-5) EOSINOPHILS (test code = 3.1 % 713-8) BASOPHILS (test code = 706-2) 0.6 % BLASTS (test code = 709-6) DNR % NUCLEATED RBC (test code = DNR /100WBC 65226-4) COMMENT(S) (test code = DNR 8251-1) LIPID PANEL (REFL)2019-05-23 00:00:00 Test Item Value Reference Range Interpretation Comments CHOLESTEROL, TOTAL (test code 177 mg/dL = 2093-3) HDL CHOLESTEROL (test code = 62 mg/dL 2085-9) TRIGLYCERIDES (test code = 114 mg/dL 2571-8) LDL-CHOLESTEROL (test code = 94 mg/dL(calc) 14467-8) CHOL/HDLC RATIO (test code = 2.9 (calc) 9830-1) NON HDL CHOLESTEROL (test 115 mg/dL(calc) code = 33874-8) COMPREHENSIVE METABOLIC [id number] 00:00:00 Test Item Value Reference Range Interpretation Comments GLUCOSE (test code = 73 mg/dL 2345-7) UREA NITROGEN (BUN) 17 mg/dL (test code = 3094-0) CREATININE (test code = 0.78 mg/dL 2160-0) eGFR NON-AFR. CENTRAL AFRICAN 85 mL/min/1.73m2 (test code = 69465-6) eGFR 98 mL/min/1.73m2 (test code = 58220-0) BUN/CREATININE RATIO NOT APPLICABLE (calc) (test code = 3097-3) SODIUM (test code = 143 mmol/L 2951-2) POTASSIUM (test code = 4.6 mmol/L 2823-3) CHLORIDE (test code = 107 mmol/L 2075-0) CARBON DIOXIDE (test 27 mmol/L code = 2027-9) CALCIUM (test code = 9.4 mg/dL 99109-3) PROTEIN, TOTAL (test 7.0 g/dL code = 2885-2) ALBUMIN (test code = 4.2 g/dL 1751-7) GLOBULIN (test code = 2.8 g/dL(calc) 73894-7) ALBUMIN/GLOBULIN RATIO 1.5 (calc) (test code = 1759-0) BILIRUBIN, TOTAL (test 0.5 mg/dL code = 1975-2) ALKALINE PHOSPHATASE 72 U/L (test code = 6768-6) AST (test code = 18 U/L 1920-8) ALT (test code = 12 U/L 1742-6) HEMOGLOBIN [id number] 00:00:00 Test Item Value Reference Range Interpretation Comments HEMOGLOBIN A1c (test code = 4.7 %[facility] 4548-4) CBC (INCLUDES DIFF/PLT)2019-05-23 00:00:00 Test Item Value Reference Range Interpretation Comments WHITE BLOOD CELL COUNT (test 8.1 Thousand/uL code = 6690-2) RED BLOOD CELL COUNT (test 4.26 Million/uL code = 789-8) HEMOGLOBIN (test code = 12.4 g/dL 718-7) HEMATOCRIT (test code = 38.8 % 4544-3) MCV (test code = 787-2) 91.1 fL MCH (test code = 785-6) 29.1 pg MCHC (test code = 786-4) 32.0 g/dL RDW (test code = 788-0) 13.2 % PLATELET COUNT (test code = 356 Thousand/uL 777-3) MPV (test code = 776-5) 10.2 fL ABSOLUTE NEUTROPHILS (test 3912 cells/uL code = 751-8) ABSOLUTE BAND NEUTROPHILS DNR cells/uL (test code = 65456-6) ABSOLUTE METAMYELOCYTES (test DNR cells/uL code = 37461-5) ABSOLUTE MYELOCYTES (test DNR cells/uL code = 24320-9) ABSOLUTE PROMYELOCYTES (test DNR cells/uL code = 84395-3) ABSOLUTE LYMPHOCYTES (test 3281 cells/uL code = 731-0) ABSOLUTE MONOCYTES (test code 608 cells/uL = 742-7) ABSOLUTE EOSINOPHILS (test 251 cells/uL code = 711-2) ABSOLUTE BASOPHILS (test code 49 cells/uL = 704-7) ABSOLUTE BLASTS (test code = DNR cells/uL 92158-2) ABSOLUTE NUCLEATED RBC (test DNR cells/uL code = 53093-3) NEUTROPHILS (test code = 48.3 % 770-8) BAND NEUTROPHILS (test code = DNR % 764-1) METAMYELOCYTES (test code = DNR % 740-1) MYELOCYTES (test code = DNR % 749-2) PROMYELOCYTES (test code = DNR % 783-1) LYMPHOCYTES (test code = 40.5 % 736-9) REACTIVE LYMPHOCYTES (test DNR % code = 57472-5) MONOCYTES (test code = 7.5 % 5905-5) EOSINOPHILS (test code = 3.1 % 713-8) BASOPHILS (test code = 706-2) 0.6 % BLASTS (test code = 709-6) DNR % NUCLEATED RBC (test code = DNR /100WBC 16966-7) COMMENT(S) (test code = DNR 8251-1) LIPID PANEL (REFL)2019-05-23 00:00:00 Test Item Value Reference Range Interpretation Comments CHOLESTEROL, TOTAL (test code 177 mg/dL = 2093-3) HDL CHOLESTEROL (test code = 62 mg/dL 2085-9) TRIGLYCERIDES (test code = 114 mg/dL 2571-8) LDL-CHOLESTEROL (test code = 94 mg/dL(calc) 24752-4) CHOL/HDLC RATIO (test code = 2.9 (calc) 9830-1) NON HDL CHOLESTEROL (test 115 mg/dL(calc) code = 18075-2) COMPREHENSIVE METABOLIC [id number] 00:00:00 Test Item Value Reference Range Interpretation Comments GLUCOSE (test code = 73 mg/dL 2345-7) UREA NITROGEN (BUN) 17 mg/dL (test code = 3094-0) CREATININE (test code = 0.78 mg/dL 2160-0) eGFR NON-AFR. CENTRAL AFRICAN 85 mL/min/1.73m2 (test code = 56831-4) eGFR 98 mL/min/1.73m2 (test code = 68727-6) BUN/CREATININE RATIO NOT APPLICABLE (calc) (test code = 3097-3) SODIUM (test code = 143 mmol/L 2951-2) POTASSIUM (test code = 4.6 mmol/L 2823-3) CHLORIDE (test code = 107 mmol/L 2075-0) CARBON DIOXIDE (test 27 mmol/L code = 8-9) CALCIUM (test code = 9.4 mg/dL 43274-1) PROTEIN, TOTAL (test 7.0 g/dL code = 2885-2) ALBUMIN (test code = 4.2 g/dL 1751-7) GLOBULIN (test code = 2.8 g/dL(calc) 48816-6) ALBUMIN/GLOBULIN RATIO 1.5 (calc) (test code = 1759-0) BILIRUBIN, TOTAL (test 0.5 mg/dL code = 1975-2) ALKALINE PHOSPHATASE 72 U/L (test code = 6768-6) AST (test code = 18 U/L 1920-8) ALT (test code = 12 U/L 1742-6) HEMOGLOBIN [id number] 00:00:00 Test Item Value Reference Range Interpretation Comments HEMOGLOBIN A1c (test code = 4.7 %[facility] 4548-4) CBC (INCLUDES DIFF/PLT)2019-05-23 00:00:00 Test Item Value Reference Range Interpretation Comments WHITE BLOOD CELL COUNT (test 8.1 Thousand/uL code = 6690-2) RED BLOOD CELL COUNT (test 4.26 Million/uL code = 789-8) HEMOGLOBIN (test code = 12.4 g/dL 718-7) HEMATOCRIT (test code = 38.8 % 4544-3) MCV (test code = 787-2) 91.1 fL MCH (test code = 785-6) 29.1 pg MCHC (test code = 786-4) 32.0 g/dL RDW (test code = 788-0) 13.2 % PLATELET COUNT (test code = 356 Thousand/uL 777-3) MPV (test code = 776-5) 10.2 fL ABSOLUTE NEUTROPHILS (test 3912 cells/uL code = 751-8) ABSOLUTE BAND NEUTROPHILS DNR cells/uL (test code = 45104-8) ABSOLUTE METAMYELOCYTES (test DNR cells/uL code = 02132-9) ABSOLUTE MYELOCYTES (test DNR cells/uL code = 15406-7) ABSOLUTE PROMYELOCYTES (test DNR cells/uL code = 36984-8) ABSOLUTE LYMPHOCYTES (test 3281 cells/uL code = 731-0) ABSOLUTE MONOCYTES (test code 608 cells/uL = 742-7) ABSOLUTE EOSINOPHILS (test 251 cells/uL code = 711-2) ABSOLUTE BASOPHILS (test code 49 cells/uL = 704-7) ABSOLUTE BLASTS (test code = DNR cells/uL 21390-1) ABSOLUTE NUCLEATED RBC (test DNR cells/uL code = 84186-5) NEUTROPHILS (test code = 48.3 % 770-8) BAND NEUTROPHILS (test code = DNR % 764-1) METAMYELOCYTES (test code = DNR % 740-1) MYELOCYTES (test code = DNR % 749-2) PROMYELOCYTES (test code = DNR % 783-1) LYMPHOCYTES (test code = 40.5 % 736-9) REACTIVE LYMPHOCYTES (test DNR % code = 45429-2) MONOCYTES (test code = 7.5 % 5905-5) EOSINOPHILS (test code = 3.1 % 713-8) BASOPHILS (test code = 706-2) 0.6 % BLASTS (test code = 709-6) DNR % NUCLEATED RBC (test code = DNR /100WBC 52292-2) COMMENT(S) (test code = DNR 8251-1) LIPID PANEL (REFL)2019-05-23 00:00:00 Test Item Value Reference Range Interpretation Comments CHOLESTEROL, TOTAL (test code 177 mg/dL = 2093-3) HDL CHOLESTEROL (test code = 62 mg/dL 2085-9) TRIGLYCERIDES (test code = 114 mg/dL 2571-8) LDL-CHOLESTEROL (test code = 94 mg/dL(calc) 29571-4) CHOL/HDLC RATIO (test code = 2.9 (calc) 9830-1) NON HDL CHOLESTEROL (test 115 mg/dL(calc) code = 10985-3) COMPREHENSIVE METABOLIC [id number] 00:00:00 Test Item Value Reference Range Interpretation Comments GLUCOSE (test code = 73 mg/dL 2345-7) UREA NITROGEN (BUN) 17 mg/dL (test code = 3094-0) CREATININE (test code = 0.78 mg/dL 2160-0) eGFR NON-AFR. CENTRAL AFRICAN 85 mL/min/1.73m2 (test code = 69417-6) eGFR 98 mL/min/1.73m2 (test code = 04815-9) BUN/CREATININE RATIO NOT APPLICABLE (calc) (test code = 3097-3) SODIUM (test code = 143 mmol/L 2951-2) POTASSIUM (test code = 4.6 mmol/L 2823-3) CHLORIDE (test code = 107 mmol/L 2075-0) CARBON DIOXIDE (test 27 mmol/L code = 8-9) CALCIUM (test code = 9.4 mg/dL 38026-0) PROTEIN, TOTAL (test 7.0 g/dL code = 2885-2) ALBUMIN (test code = 4.2 g/dL 1751-7) GLOBULIN (test code = 2.8 g/dL(calc) 14009-3) ALBUMIN/GLOBULIN RATIO 1.5 (calc) (test code = 1759-0) BILIRUBIN, TOTAL (test 0.5 mg/dL code = 1975-2) ALKALINE PHOSPHATASE 72 U/L (test code = 6768-6) AST (test code = 18 U/L 1920-8) ALT (test code = 12 U/L 1742-6) HEMOGLOBIN [id number] 00:00:00 Test Item Value Reference Range Interpretation Comments HEMOGLOBIN A1c (test code = 4.7 %[facility] 4548-4) URINE MONOCLONALFB2018-09-10 05:07:00 Test Item Value Reference Range Interpretation Comments PREG UR (test code = PGU) Negative NEGATIVE URINE MONOCLONALFB2018-06-11 10:08:00 Test Item Value Reference Range Interpretation Comments PREG UR (test code = PGU) Negative NEGATIVE VITAMIN [id number] 00:00:00 Test Item Value Reference Range Interpretation Comments VITAMIN B12 (test code = 2132-9) 657 pg/mL VITAMIN [id number] 00:00:00 Test Item Value Reference Range Interpretation Comments VITAMIN B12 (test code = 2132-9) 657 pg/mL CBC (INCLUDES DIFF/PLT)2018-03-21 00:00:00 Test Item Value Reference Range Interpretation Comments WHITE BLOOD CELL COUNT (test 8.2 Thousand/uL code = 6690-2) RED BLOOD CELL COUNT (test 4.17 Million/uL code = 789-8) HEMOGLOBIN (test code = 12.1 g/dL 718-7) HEMATOCRIT (test code = 37.3 % 4544-3) MCV (test code = 787-2) 89.4 fL MCH (test code = 785-6) 29.0 pg MCHC (test code = 786-4) 32.4 g/dL RDW (test code = 788-0) 12.1 % PLATELET COUNT (test code = 371 Thousand/uL 777-3) MPV (test code = 776-5) 10.3 fL ABSOLUTE NEUTROPHILS (test 4535 cells/uL code = 751-8) ABSOLUTE BAND NEUTROPHILS DNR cells/uL (test code = 17802-6) ABSOLUTE METAMYELOCYTES (test DNR cells/uL code = 74403-9) ABSOLUTE MYELOCYTES (test DNR cells/uL code = 39825-9) ABSOLUTE PROMYELOCYTES (test DNR cells/uL code = 77526-9) ABSOLUTE LYMPHOCYTES (test 2681 cells/uL code = 731-0) ABSOLUTE MONOCYTES (test code 681 cells/uL = 742-7) ABSOLUTE EOSINOPHILS (test 230 cells/uL code = 711-2) ABSOLUTE BASOPHILS (test code 74 cells/uL = 704-7) ABSOLUTE BLASTS (test code = DNR cells/uL 32391-6) ABSOLUTE NUCLEATED RBC (test DNR cells/uL code = 89482-8) NEUTROPHILS (test code = 55.3 % 770-8) BAND NEUTROPHILS (test code = DNR % 764-1) METAMYELOCYTES (test code = DNR % 740-1) MYELOCYTES (test code = DNR % 749-2) PROMYELOCYTES (test code = DNR % 783-1) LYMPHOCYTES (test code = 32.7 % 736-9) REACTIVE LYMPHOCYTES (test DNR % code = 27223-4) MONOCYTES (test code = 8.3 % 5905-5) EOSINOPHILS (test code = 2.8 % 713-8) BASOPHILS (test code = 706-2) 0.9 % BLASTS (test code = 709-6) DNR % NUCLEATED RBC (test code = DNR /100WBC 22683-8) COMMENT(S) (test code = DNR 8251-1) CBC (INCLUDES DIFF/PLT)2018-03-21 00:00:00 Test Item Value Reference Range Interpretation Comments WHITE BLOOD CELL COUNT (test 8.2 Thousand/uL code = 6690-2) RED BLOOD CELL COUNT (test 4.17 Million/uL code = 789-8) HEMOGLOBIN (test code = 12.1 g/dL 718-7) HEMATOCRIT (test code = 37.3 % 4544-3) MCV (test code = 787-2) 89.4 fL MCH (test code = 785-6) 29.0 pg MCHC (test code = 786-4) 32.4 g/dL RDW (test code = 788-0) 12.1 % PLATELET COUNT (test code = 371 Thousand/uL 777-3) MPV (test code = 776-5) 10.3 fL ABSOLUTE NEUTROPHILS (test 4535 cells/uL code = 751-8) ABSOLUTE BAND NEUTROPHILS DNR cells/uL (test code = 57205-4) ABSOLUTE METAMYELOCYTES (test DNR cells/uL code = 73815-5) ABSOLUTE MYELOCYTES (test DNR cells/uL code = 82650-2) ABSOLUTE PROMYELOCYTES (test DNR cells/uL code = 90886-1) ABSOLUTE LYMPHOCYTES (test 2681 cells/uL code = 731-0) ABSOLUTE MONOCYTES (test code 681 cells/uL = 742-7) ABSOLUTE EOSINOPHILS (test 230 cells/uL code = 711-2) ABSOLUTE BASOPHILS (test code 74 cells/uL = 704-7) ABSOLUTE BLASTS (test code = DNR cells/uL 58740-3) ABSOLUTE NUCLEATED RBC (test DNR cells/uL code = 17227-7) NEUTROPHILS (test code = 55.3 % 770-8) BAND NEUTROPHILS (test code = DNR % 764-1) METAMYELOCYTES (test code = DNR % 740-1) MYELOCYTES (test code = DNR % 749-2) PROMYELOCYTES (test code = DNR % 783-1) LYMPHOCYTES (test code = 32.7 % 736-9) REACTIVE LYMPHOCYTES (test DNR % code = 19508-7) MONOCYTES (test code = 8.3 % 5905-5) EOSINOPHILS (test code = 2.8 % 713-8) BASOPHILS (test code = 706-2) 0.9 % BLASTS (test code = 709-6) DNR % NUCLEATED RBC (test code = DNR /100WBC 52195-4) COMMENT(S) (test code = DNR 8251-1) VITAMIN [id number] 00:00:00 Test Item Value Reference Range Interpretation Comments VITAMIN B12 (test code = 2132-9) 657 pg/mL VITAMIN [id number] 00:00:00 Test Item Value Reference Range Interpretation Comments VITAMIN B12 (test code = 2132-9) 657 pg/mL CBC (INCLUDES DIFF/PLT)2018-03-21 00:00:00 Test Item Value Reference Range Interpretation Comments WHITE BLOOD CELL COUNT (test 8.2 Thousand/uL code = 6690-2) RED BLOOD CELL COUNT (test 4.17 Million/uL code = 789-8) HEMOGLOBIN (test code = 12.1 g/dL 718-7) HEMATOCRIT (test code = 37.3 % 4544-3) MCV (test code = 787-2) 89.4 fL MCH (test code = 785-6) 29.0 pg MCHC (test code = 786-4) 32.4 g/dL RDW (test code = 788-0) 12.1 % PLATELET COUNT (test code = 371 Thousand/uL 777-3) MPV (test code = 776-5) 10.3 fL ABSOLUTE NEUTROPHILS (test 4535 cells/uL code = 751-8) ABSOLUTE BAND NEUTROPHILS DNR cells/uL (test code = 98542-2) ABSOLUTE METAMYELOCYTES (test DNR cells/uL code = 09058-5) ABSOLUTE MYELOCYTES (test DNR cells/uL code = 53636-2) ABSOLUTE PROMYELOCYTES (test DNR cells/uL code = 11757-3) ABSOLUTE LYMPHOCYTES (test 2681 cells/uL code = 731-0) ABSOLUTE MONOCYTES (test code 681 cells/uL = 742-7) ABSOLUTE EOSINOPHILS (test 230 cells/uL code = 711-2) ABSOLUTE BASOPHILS (test code 74 cells/uL = 704-7) ABSOLUTE BLASTS (test code = DNR cells/uL 30116-8) ABSOLUTE NUCLEATED RBC (test DNR cells/uL code = 22224-9) NEUTROPHILS (test code = 55.3 % 770-8) BAND NEUTROPHILS (test code = DNR % 764-1) METAMYELOCYTES (test code = DNR % 740-1) MYELOCYTES (test code = DNR % 749-2) PROMYELOCYTES (test code = DNR % 783-1) LYMPHOCYTES (test code = 32.7 % 736-9) REACTIVE LYMPHOCYTES (test DNR % code = 37661-6) MONOCYTES (test code = 8.3 % 5905-5) EOSINOPHILS (test code = 2.8 % 713-8) BASOPHILS (test code = 706-2) 0.9 % BLASTS (test code = 709-6) DNR % NUCLEATED RBC (test code = DNR /100WBC 29191-5) COMMENT(S) (test code = DNR 8251-1) CBC (INCLUDES DIFF/PLT)2018-03-21 00:00:00 Test Item Value Reference Range Interpretation Comments WHITE BLOOD CELL COUNT (test 8.2 Thousand/uL code = 6690-2) RED BLOOD CELL COUNT (test 4.17 Million/uL code = 789-8) HEMOGLOBIN (test code = 12.1 g/dL 718-7) HEMATOCRIT (test code = 37.3 % 4544-3) MCV (test code = 787-2) 89.4 fL MCH (test code = 785-6) 29.0 pg MCHC (test code = 786-4) 32.4 g/dL RDW (test code = 788-0) 12.1 % PLATELET COUNT (test code = 371 Thousand/uL 777-3) MPV (test code = 776-5) 10.3 fL ABSOLUTE NEUTROPHILS (test 4535 cells/uL code = 751-8) ABSOLUTE BAND NEUTROPHILS DNR cells/uL (test code = 56876-3) ABSOLUTE METAMYELOCYTES (test DNR cells/uL code = 84331-9) ABSOLUTE MYELOCYTES (test DNR cells/uL code = 03296-4) ABSOLUTE PROMYELOCYTES (test DNR cells/uL code = 53918-0) ABSOLUTE LYMPHOCYTES (test 2681 cells/uL code = 731-0) ABSOLUTE MONOCYTES (test code 681 cells/uL = 742-7) ABSOLUTE EOSINOPHILS (test 230 cells/uL code = 711-2) ABSOLUTE BASOPHILS (test code 74 cells/uL = 704-7) ABSOLUTE BLASTS (test code = DNR cells/uL 91685-9) ABSOLUTE NUCLEATED RBC (test DNR cells/uL code = 43912-0) NEUTROPHILS (test code = 55.3 % 770-8) BAND NEUTROPHILS (test code = DNR % 764-1) METAMYELOCYTES (test code = DNR % 740-1) MYELOCYTES (test code = DNR % 749-2) PROMYELOCYTES (test code = DNR % 783-1) LYMPHOCYTES (test code = 32.7 % 736-9) REACTIVE LYMPHOCYTES (test DNR % code = 89013-2) MONOCYTES (test code = 8.3 % 5905-5) EOSINOPHILS (test code = 2.8 % 713-8) BASOPHILS (test code = 706-2) 0.9 % BLASTS (test code = 709-6) DNR % NUCLEATED RBC (test code = DNR /100WBC 39045-9) COMMENT(S) (test code = DNR 8251-1) COMPREHENSIVE METABOLIC PANEL [ADDED]2017-12-28 00:00:00 Test Item Value Reference Range Interpretation Comments GLUCOSE (test code = 89 mg/dL 2345-7) UREA NITROGEN (BUN) 14 mg/dL (test code = 3094-0) CREATININE (test code = 0.77 mg/dL 2160-0) eGFR NON-AFR. CENTRAL AFRICAN 87 mL/min/1.73m2 (test code = 53629-9) eGFR 101 mL/min/1.73m2 (test code = 01924-4) BUN/CREATININE RATIO NOT APPLICABLE (calc) (test code = 3097-3) SODIUM (test code = 145 mmol/L 2951-2) POTASSIUM (test code = 5.1 mmol/L 2823-3) CHLORIDE (test code = 112 mmol/L 2075-0) CARBON DIOXIDE (test 26 mmol/L code = 2028-9) CALCIUM (test code = 9.4 mg/dL 06498-9) PROTEIN, TOTAL (test 6.8 g/dL code = 2885-2) ALBUMIN (test code = 4.2 g/dL 1751-7) GLOBULIN (test code = 2.6 g/dL(calc) 45954-1) ALBUMIN/GLOBULIN RATIO 1.6 (calc) (test code = 1759-0) BILIRUBIN, TOTAL (test 0.4 mg/dL code = 1975-2) ALKALINE PHOSPHATASE 63 U/L (test code = 6768-6) AST (test code = 17 U/L 1920-8) ALT (test code = 10 U/L 1742-6) CBC (INCLUDES DIFF/PLT) [ADDED]2017-12-28 00:00:00 Test Item Value Reference Range Interpretation Comments WHITE BLOOD CELL COUNT (test 7.8 Thousand/uL code = 6690-2) RED BLOOD CELL COUNT (test 3.90 Million/uL code = 789-8) HEMOGLOBIN (test code = 11.8 g/dL 718-7) HEMATOCRIT (test code = 35.3 % 4544-3) MCV (test code = 787-2) 90.5 fL MCH (test code = 785-6) 30.3 pg MCHC (test code = 786-4) 33.4 g/dL RDW (test code = 788-0) 12.8 % PLATELET COUNT (test code = 340 Thousand/uL 777-3) MPV (test code = 776-5) 10.4 fL ABSOLUTE NEUTROPHILS (test 4384 cells/uL code = 751-8) ABSOLUTE BAND NEUTROPHILS DNR cells/uL (test code = 01934-5) ABSOLUTE METAMYELOCYTES (test DNR cells/uL code = 51480-2) ABSOLUTE MYELOCYTES (test DNR cells/uL code = 19755-9) ABSOLUTE PROMYELOCYTES (test DNR cells/uL code = 15338-9) ABSOLUTE LYMPHOCYTES (test 2465 cells/uL code = 731-0) ABSOLUTE MONOCYTES (test code 593 cells/uL = 742-7) ABSOLUTE EOSINOPHILS (test 289 cells/uL code = 711-2) ABSOLUTE BASOPHILS (test code 70 cells/uL = 704-7) ABSOLUTE BLASTS (test code = DNR cells/uL 81045-7) ABSOLUTE NUCLEATED RBC (test DNR cells/uL code = 37306-7) NEUTROPHILS (test code = 56.2 % 770-8) BAND NEUTROPHILS (test code = DNR % 764-1) METAMYELOCYTES (test code = DNR % 740-1) MYELOCYTES (test code = DNR % 749-2) PROMYELOCYTES (test code = DNR % 783-1) LYMPHOCYTES (test code = 31.6 % 736-9) REACTIVE LYMPHOCYTES (test DNR % code = 22144-0) MONOCYTES (test code = 7.6 % 5905-5) EOSINOPHILS (test code = 3.7 % 713-8) BASOPHILS (test code = 706-2) 0.9 % BLASTS (test code = 709-6) DNR % NUCLEATED RBC (test code = DNR /100WBC 28919-4) COMMENT(S) (test code = DNR 8251-1) TSH [ADDED]2017-12-28 00:00:00 Test Item Value Reference Range Interpretation Comments TSH (test code = 3016-3) 1.06 mIU/L HEMOGLOBIN A1c [ADDED]2017-12-28 00:00:00 Test Item Value Reference Range Interpretation Comments HEMOGLOBIN A1c (test code = 4.7 %oftotalHgb 4548-4) URINALYSIS REFLEX [ADDED]2017-12-28 00:00:00 Test Item Value Reference Range Interpretation Comments COLOR (test code = 5778-6) YELLOW APPEARANCE (test code = CLEAR 5767-9) SPECIFIC GRAVITY (test code = 1.020 5811-5) PH (test code = 5803-2) 5.5 GLUCOSE (test code = 43585-0) NEGATIVE REDUCING SUBSTANCES (test code DNR % = 87845-6) BILIRUBIN (test code = 5770-3) NEGATIVE KETONES (test code = 2514-8) NEGATIVE OCCULT BLOOD (test code = NEGATIVE 5794-3) PROTEIN (test code = 43940-6) NEGATIVE NITRITE (test code = 5802-4) NEGATIVE LEUKOCYTE ESTERASE (test code 2+ = 5799-2) WBC (test code = 5821-4) 20-40 /HPF RBC (test code = 15778-3) 0-2 /HPF SQUAMOUS EPITHELIAL CELLS NONE SEEN /HPF (test code = 44217-8) TRANSITIONAL EPITHELIAL CELLS DNR /HPF (test code = 37637-3) RENAL EPITHELIAL CELLS (test DNR /HPF code = 22058-5) BACTERIA (test code = 5769-5) NONE SEEN /HPF CALCIUM OXALATE CRYSTALS (test DNR /HPF code = 86739-0) TRIPLE PHOSPHATE CRYSTALS DNR /HPF (test code = 92816-7) URIC ACID CRYSTALS (test code DNR /HPF = 42266-5) AMORPHOUS SEDIMENT (test code DNR /HPF = 8246-1) CRYSTALS (test code = 01653-8) DNR /HPF HYALINE CAST (test code = NONE SEEN /LPF 5796-8) GRANULAR CAST (test code = DNR /LPF 5793-5) CASTS (test code = 9842-6) DNR /LPF YEAST (test code = 5822-2) DNR /HPF NOTE (test code = 8251-1) DNR LIPID PANEL WITH REFLEX TO DIRECT LDL [ADDED]2017-12-28 00:00:00 Test Item Value Reference Range Interpretation Comments CHOLESTEROL, TOTAL (test code 183 mg/dL = 2093-3) HDL CHOLESTEROL (test code = 54 mg/dL 2085-9) TRIGLYCERIDES (test code = 69 mg/dL 2571-8) LDL-CHOLESTEROL (test code = 113 mg/dL(calc) 50286-3) CHOL/HDLC RATIO (test code = 3.4 (calc) 9830-1) NON HDL CHOLESTEROL (test 129 mg/dL(calc) code = 64107-5) COMPREHENSIVE METABOLIC PANEL [ADDED]2017-12-28 00:00:00 Test Item Value Reference Range Interpretation Comments GLUCOSE (test code = 89 mg/dL 2345-7) UREA NITROGEN (BUN) 14 mg/dL (test code = 3094-0) CREATININE (test code = 0.77 mg/dL 2160-0) eGFR NON-AFR. CENTRAL AFRICAN 87 mL/min/1.73m2 (test code = 57973-6) eGFR 101 mL/min/1.73m2 (test code = 81180-8) BUN/CREATININE RATIO NOT APPLICABLE (calc) (test code = 3097-3) SODIUM (test code = 145 mmol/L 2951-2) POTASSIUM (test code = 5.1 mmol/L 2823-3) CHLORIDE (test code = 112 mmol/L 2075-0) CARBON DIOXIDE (test 26 mmol/L code = 8-9) CALCIUM (test code = 9.4 mg/dL 85560-5) PROTEIN, TOTAL (test 6.8 g/dL code = 2885-2) ALBUMIN (test code = 4.2 g/dL 1751-7) GLOBULIN (test code = 2.6 g/dL(calc) 94947-8) ALBUMIN/GLOBULIN RATIO 1.6 (calc) (test code = 1759-0) BILIRUBIN, TOTAL (test 0.4 mg/dL code = 1975-2) ALKALINE PHOSPHATASE 63 U/L (test code = 6768-6) AST (test code = 17 U/L 1920-8) ALT (test code = 10 U/L 1742-6) CBC (INCLUDES DIFF/PLT) [ADDED]2017-12-28 00:00:00 Test Item Value Reference Range Interpretation Comments WHITE BLOOD CELL COUNT (test 7.8 Thousand/uL code = 6690-2) RED BLOOD CELL COUNT (test 3.90 Million/uL code = 789-8) HEMOGLOBIN (test code = 11.8 g/dL 718-7) HEMATOCRIT (test code = 35.3 % 4544-3) MCV (test code = 787-2) 90.5 fL MCH (test code = 785-6) 30.3 pg MCHC (test code = 786-4) 33.4 g/dL RDW (test code = 788-0) 12.8 % PLATELET COUNT (test code = 340 Thousand/uL 777-3) MPV (test code = 776-5) 10.4 fL ABSOLUTE NEUTROPHILS (test 4384 cells/uL code = 751-8) ABSOLUTE BAND NEUTROPHILS DNR cells/uL (test code = 98118-7) ABSOLUTE METAMYELOCYTES (test DNR cells/uL code = 10698-3) ABSOLUTE MYELOCYTES (test DNR cells/uL code = 04248-5) ABSOLUTE PROMYELOCYTES (test DNR cells/uL code = 48431-0) ABSOLUTE LYMPHOCYTES (test 2465 cells/uL code = 731-0) ABSOLUTE MONOCYTES (test code 593 cells/uL = 742-7) ABSOLUTE EOSINOPHILS (test 289 cells/uL code = 711-2) ABSOLUTE BASOPHILS (test code 70 cells/uL = 704-7) ABSOLUTE BLASTS (test code = DNR cells/uL 84691-6) ABSOLUTE NUCLEATED RBC (test DNR cells/uL code = 51272-8) NEUTROPHILS (test code = 56.2 % 770-8) BAND NEUTROPHILS (test code = DNR % 764-1) METAMYELOCYTES (test code = DNR % 740-1) MYELOCYTES (test code = DNR % 749-2) PROMYELOCYTES (test code = DNR % 783-1) LYMPHOCYTES (test code = 31.6 % 736-9) REACTIVE LYMPHOCYTES (test DNR % code = 30336-2) MONOCYTES (test code = 7.6 % 5905-5) EOSINOPHILS (test code = 3.7 % 713-8) BASOPHILS (test code = 706-2) 0.9 % BLASTS (test code = 709-6) DNR % NUCLEATED RBC (test code = DNR /100WBC 85074-6) COMMENT(S) (test code = DNR 8251-1) TSH [ADDED]2017-12-28 00:00:00 Test Item Value Reference Range Interpretation Comments TSH (test code = 3016-3) 1.06 mIU/L HEMOGLOBIN A1c [ADDED]2017-12-28 00:00:00 Test Item Value Reference Range Interpretation Comments HEMOGLOBIN A1c (test code = 4.7 %oftotalHgb 4548-4) URINALYSIS REFLEX [ADDED]2017-12-28 00:00:00 Test Item Value Reference Range Interpretation Comments COLOR (test code = 5778-6) YELLOW APPEARANCE (test code = CLEAR 5767-9) SPECIFIC GRAVITY (test code = 1.020 5811-5) PH (test code = 5803-2) 5.5 GLUCOSE (test code = 28582-2) NEGATIVE REDUCING SUBSTANCES (test code DNR % = 71274-4) BILIRUBIN (test code = 5770-3) NEGATIVE KETONES (test code = 2514-8) NEGATIVE OCCULT BLOOD (test code = NEGATIVE 5794-3) PROTEIN (test code = 18927-5) NEGATIVE NITRITE (test code = 5802-4) NEGATIVE LEUKOCYTE ESTERASE (test code 2+ = 5799-2) WBC (test code = 5821-4) 20-40 /HPF RBC (test code = 62706-5) 0-2 /HPF SQUAMOUS EPITHELIAL CELLS NONE SEEN /HPF (test code = 23984-3) TRANSITIONAL EPITHELIAL CELLS DNR /HPF (test code = 49068-7) RENAL EPITHELIAL CELLS (test DNR /HPF code = 72288-5) BACTERIA (test code = 5769-5) NONE SEEN /HPF CALCIUM OXALATE CRYSTALS (test DNR /HPF code = 25493-9) TRIPLE PHOSPHATE CRYSTALS DNR /HPF (test code = 86462-8) URIC ACID CRYSTALS (test code DNR /HPF = 59038-7) AMORPHOUS SEDIMENT (test code DNR /HPF = 8246-1) CRYSTALS (test code = 29882-4) DNR /HPF HYALINE CAST (test code = NONE SEEN /LPF 5796-8) GRANULAR CAST (test code = DNR /LPF 5793-5) CASTS (test code = 9842-6) DNR /LPF YEAST (test code = 5822-2) DNR /HPF NOTE (test code = 8251-1) DNR LIPID PANEL WITH REFLEX TO DIRECT LDL [ADDED]2017-12-28 00:00:00 Test Item Value Reference Range Interpretation Comments CHOLESTEROL, TOTAL (test code 183 mg/dL = 2093-3) HDL CHOLESTEROL (test code = 54 mg/dL 2085-9) TRIGLYCERIDES (test code = 69 mg/dL 2571-8) LDL-CHOLESTEROL (test code = 113 mg/dL(calc) 39352-7) CHOL/HDLC RATIO (test code = 3.4 (calc) 9830-1) NON HDL CHOLESTEROL (test 129 mg/dL(calc) code = 83238-6) COMPREHENSIVE METABOLIC PANEL [ADDED]2017-12-28 00:00:00 Test Item Value Reference Range Interpretation Comments GLUCOSE (test code = 89 mg/dL 2345-7) UREA NITROGEN (BUN) 14 mg/dL (test code = 3094-0) CREATININE (test code = 0.77 mg/dL 2160-0) eGFR NON-AFR. CENTRAL AFRICAN 87 mL/min/1.73m2 (test code = 86856-4) eGFR 101 mL/min/1.73m2 (test code = 01872-7) BUN/CREATININE RATIO NOT APPLICABLE (calc) (test code = 3097-3) SODIUM (test code = 145 mmol/L 2951-2) POTASSIUM (test code = 5.1 mmol/L 2823-3) CHLORIDE (test code = 112 mmol/L 2075-0) CARBON DIOXIDE (test 26 mmol/L code = 8-9) CALCIUM (test code = 9.4 mg/dL 09170-7) PROTEIN, TOTAL (test 6.8 g/dL code = 2885-2) ALBUMIN (test code = 4.2 g/dL 1751-7) GLOBULIN (test code = 2.6 g/dL(calc) 55514-4) ALBUMIN/GLOBULIN RATIO 1.6 (calc) (test code = 1759-0) BILIRUBIN, TOTAL (test 0.4 mg/dL code = 1975-2) ALKALINE PHOSPHATASE 63 U/L (test code = 6768-6) AST (test code = 17 U/L 1920-8) ALT (test code = 10 U/L 1742-6) CBC (INCLUDES DIFF/PLT) [ADDED]2017-12-28 00:00:00 Test Item Value Reference Range Interpretation Comments WHITE BLOOD CELL COUNT (test 7.8 Thousand/uL code = 6690-2) RED BLOOD CELL COUNT (test 3.90 Million/uL code = 789-8) HEMOGLOBIN (test code = 11.8 g/dL 718-7) HEMATOCRIT (test code = 35.3 % 4544-3) MCV (test code = 787-2) 90.5 fL MCH (test code = 785-6) 30.3 pg MCHC (test code = 786-4) 33.4 g/dL RDW (test code = 788-0) 12.8 % PLATELET COUNT (test code = 340 Thousand/uL 777-3) MPV (test code = 776-5) 10.4 fL ABSOLUTE NEUTROPHILS (test 4384 cells/uL code = 751-8) ABSOLUTE BAND NEUTROPHILS DNR cells/uL (test code = 73517-4) ABSOLUTE METAMYELOCYTES (test DNR cells/uL code = 15457-2) ABSOLUTE MYELOCYTES (test DNR cells/uL code = 02383-3) ABSOLUTE PROMYELOCYTES (test DNR cells/uL code = 07436-9) ABSOLUTE LYMPHOCYTES (test 2465 cells/uL code = 731-0) ABSOLUTE MONOCYTES (test code 593 cells/uL = 742-7) ABSOLUTE EOSINOPHILS (test 289 cells/uL code = 711-2) ABSOLUTE BASOPHILS (test code 70 cells/uL = 704-7) ABSOLUTE BLASTS (test code = DNR cells/uL 18710-2) ABSOLUTE NUCLEATED RBC (test DNR cells/uL code = 30842-7) NEUTROPHILS (test code = 56.2 % 770-8) BAND NEUTROPHILS (test code = DNR % 764-1) METAMYELOCYTES (test code = DNR % 740-1) MYELOCYTES (test code = DNR % 749-2) PROMYELOCYTES (test code = DNR % 783-1) LYMPHOCYTES (test code = 31.6 % 736-9) REACTIVE LYMPHOCYTES (test DNR % code = 68578-5) MONOCYTES (test code = 7.6 % 5905-5) EOSINOPHILS (test code = 3.7 % 713-8) BASOPHILS (test code = 706-2) 0.9 % BLASTS (test code = 709-6) DNR % NUCLEATED RBC (test code = DNR /100WBC 99387-7) COMMENT(S) (test code = DNR 8251-1) TSH [ADDED]2017-12-28 00:00:00 Test Item Value Reference Range Interpretation Comments TSH (test code = 3016-3) 1.06 mIU/L HEMOGLOBIN A1c [ADDED]2017-12-28 00:00:00 Test Item Value Reference Range Interpretation Comments HEMOGLOBIN A1c (test code = 4.7 %oftotalb 4548-4) URINALYSIS REFLEX [ADDED]2017-12-28 00:00:00 Test Item Value Reference Range Interpretation Comments COLOR (test code = 5778-6) YELLOW APPEARANCE (test code = CLEAR 5767-9) SPECIFIC GRAVITY (test code = 1.020 5811-5) PH (test code = 5803-2) 5.5 GLUCOSE (test code = 78163-1) NEGATIVE REDUCING SUBSTANCES (test code DNR % = 78909-7) BILIRUBIN (test code = 5770-3) NEGATIVE KETONES (test code = 2514-8) NEGATIVE OCCULT BLOOD (test code = NEGATIVE 5794-3) PROTEIN (test code = 55670-1) NEGATIVE NITRITE (test code = 5802-4) NEGATIVE LEUKOCYTE ESTERASE (test code 2+ = 5799-2) WBC (test code = 5821-4) 20-40 /HPF RBC (test code = 08201-2) 0-2 /HPF SQUAMOUS EPITHELIAL CELLS NONE SEEN /HPF (test code = 09905-4) TRANSITIONAL EPITHELIAL CELLS DNR /HPF (test code = 67516-8) RENAL EPITHELIAL CELLS (test DNR /HPF code = 59822-7) BACTERIA (test code = 5769-5) NONE SEEN /HPF CALCIUM OXALATE CRYSTALS (test DNR /HPF code = 23517-4) TRIPLE PHOSPHATE CRYSTALS DNR /HPF (test code = 63240-8) URIC ACID CRYSTALS (test code DNR /HPF = 83659-8) AMORPHOUS SEDIMENT (test code DNR /HPF = 8246-1) CRYSTALS (test code = 09504-0) DNR /HPF HYALINE CAST (test code = NONE SEEN /LPF 5796-8) GRANULAR CAST (test code = DNR /LPF 5793-5) CASTS (test code = 9842-6) DNR /LPF YEAST (test code = 5822-2) DNR /HPF NOTE (test code = 8251-1) DNR LIPID PANEL WITH REFLEX TO DIRECT LDL [ADDED]2017-12-28 00:00:00 Test Item Value Reference Range Interpretation Comments CHOLESTEROL, TOTAL (test code 183 mg/dL = 2093-3) HDL CHOLESTEROL (test code = 54 mg/dL 2085-9) TRIGLYCERIDES (test code = 69 mg/dL 2571-8) LDL-CHOLESTEROL (test code = 113 mg/dL(calc) 31153-1) CHOL/HDLC RATIO (test code = 3.4 (calc) 9830-1) NON HDL CHOLESTEROL (test 129 mg/dL(calc) code = 05449-4) COMPREHENSIVE METABOLIC PANEL [ADDED]2017-12-28 00:00:00 Test Item Value Reference Range Interpretation Comments GLUCOSE (test code = 89 mg/dL 2345-7) UREA NITROGEN (BUN) 14 mg/dL (test code = 3094-0) CREATININE (test code = 0.77 mg/dL 2160-0) eGFR NON-AFR. CENTRAL AFRICAN 87 mL/min/1.73m2 (test code = 67614-6) eGFR 101 mL/min/1.73m2 (test code = 05191-0) BUN/CREATININE RATIO NOT APPLICABLE (calc) (test code = 3097-3) SODIUM (test code = 145 mmol/L 2951-2) POTASSIUM (test code = 5.1 mmol/L 2823-3) CHLORIDE (test code = 112 mmol/L 2074-0) CARBON DIOXIDE (test 26 mmol/L code = 2027-9) CALCIUM (test code = 9.4 mg/dL 10833-3) PROTEIN, TOTAL (test 6.8 g/dL code = 2885-2) ALBUMIN (test code = 4.2 g/dL 1751-7) GLOBULIN (test code = 2.6 g/dL(calc) 84058-0) ALBUMIN/GLOBULIN RATIO 1.6 (calc) (test code = 1759-0) BILIRUBIN, TOTAL (test 0.4 mg/dL code = 1974-2) ALKALINE PHOSPHATASE 63 U/L (test code = 6768-6) AST (test code = 17 U/L 1920-8) ALT (test code = 10 U/L 1742-6) CBC (INCLUDES DIFF/PLT) [ADDED]2017-12-28 00:00:00 Test Item Value Reference Range Interpretation Comments WHITE BLOOD CELL COUNT (test 7.8 Thousand/uL code = 6690-2) RED BLOOD CELL COUNT (test 3.90 Million/uL code = 789-8) HEMOGLOBIN (test code = 11.8 g/dL 718-7) HEMATOCRIT (test code = 35.3 % 4544-3) MCV (test code = 787-2) 90.5 fL MCH (test code = 785-6) 30.3 pg MCHC (test code = 786-4) 33.4 g/dL RDW (test code = 788-0) 12.8 % PLATELET COUNT (test code = 340 Thousand/uL 777-3) MPV (test code = 776-5) 10.4 fL ABSOLUTE NEUTROPHILS (test 4384 cells/uL code = 751-8) ABSOLUTE BAND NEUTROPHILS DNR cells/uL (test code = 89054-6) ABSOLUTE METAMYELOCYTES (test DNR cells/uL code = 68194-6) ABSOLUTE MYELOCYTES (test DNR cells/uL code = 17675-8) ABSOLUTE PROMYELOCYTES (test DNR cells/uL code = 90309-6) ABSOLUTE LYMPHOCYTES (test 2465 cells/uL code = 731-0) ABSOLUTE MONOCYTES (test code 593 cells/uL = 742-7) ABSOLUTE EOSINOPHILS (test 289 cells/uL code = 711-2) ABSOLUTE BASOPHILS (test code 70 cells/uL = 704-7) ABSOLUTE BLASTS (test code = DNR cells/uL 98131-9) ABSOLUTE NUCLEATED RBC (test DNR cells/uL code = 36895-3) NEUTROPHILS (test code = 56.2 % 770-8) BAND NEUTROPHILS (test code = DNR % 764-1) METAMYELOCYTES (test code = DNR % 740-1) MYELOCYTES (test code = DNR % 749-2) PROMYELOCYTES (test code = DNR % 783-1) LYMPHOCYTES (test code = 31.6 % 736-9) REACTIVE LYMPHOCYTES (test DNR % code = 36245-0) MONOCYTES (test code = 7.6 % 5905-5) EOSINOPHILS (test code = 3.7 % 713-8) BASOPHILS (test code = 706-2) 0.9 % BLASTS (test code = 709-6) DNR % NUCLEATED RBC (test code = DNR /100WBC 57221-3) COMMENT(S) (test code = DNR 8251-1) TSH [ADDED]2017-12-28 00:00:00 Test Item Value Reference Range Interpretation Comments TSH (test code = 3016-3) 1.06 mIU/L HEMOGLOBIN A1c [ADDED]2017-12-28 00:00:00 Test Item Value Reference Range Interpretation Comments HEMOGLOBIN A1c (test code = 4.7 %oftotalHgb 4548-4) URINALYSIS REFLEX [ADDED]2017-12-28 00:00:00 Test Item Value Reference Range Interpretation Comments COLOR (test code = 5778-6) YELLOW APPEARANCE (test code = CLEAR 5767-9) SPECIFIC GRAVITY (test code = 1.020 5811-5) PH (test code = 5803-2) 5.5 GLUCOSE (test code = 77026-2) NEGATIVE REDUCING SUBSTANCES (test code DNR % = 99265-1) BILIRUBIN (test code = 5770-3) NEGATIVE KETONES (test code = 2514-8) NEGATIVE OCCULT BLOOD (test code = NEGATIVE 5794-3) PROTEIN (test code = 94217-5) NEGATIVE NITRITE (test code = 5802-4) NEGATIVE LEUKOCYTE ESTERASE (test code 2+ = 5799-2) WBC (test code = 5821-4) 20-40 /HPF RBC (test code = 03100-5) 0-2 /HPF SQUAMOUS EPITHELIAL CELLS NONE SEEN /HPF (test code = 00991-8) TRANSITIONAL EPITHELIAL CELLS DNR /HPF (test code = 19533-8) RENAL EPITHELIAL CELLS (test DNR /HPF code = 34951-1) BACTERIA (test code = 5769-5) NONE SEEN /HPF CALCIUM OXALATE CRYSTALS (test DNR /HPF code = 51556-0) TRIPLE PHOSPHATE CRYSTALS DNR /HPF (test code = 57980-0) URIC ACID CRYSTALS (test code DNR /HPF = 42984-9) AMORPHOUS SEDIMENT (test code DNR /HPF = 8246-1) CRYSTALS (test code = 00669-0) DNR /HPF HYALINE CAST (test code = NONE SEEN /LPF 5796-8) GRANULAR CAST (test code = DNR /LPF 5793-5) CASTS (test code = 9842-6) DNR /LPF YEAST (test code = 5822-2) DNR /HPF NOTE (test code = 8251-1) DNR LIPID PANEL WITH REFLEX TO DIRECT LDL [ADDED]2017-12-28 00:00:00 Test Item Value Reference Range Interpretation Comments CHOLESTEROL, TOTAL (test code 183 mg/dL = 2093-3) HDL CHOLESTEROL (test code = 54 mg/dL 2085-9) TRIGLYCERIDES (test code = 69 mg/dL 2571-8) LDL-CHOLESTEROL (test code = 113 mg/dL(calc) 91978-5) CHOL/HDLC RATIO (test code = 3.4 (calc) 9830-1) NON HDL CHOLESTEROL (test 129 mg/dL(calc) code = 36766-5)
[2022-02-25] MEDS ORDERED: GABAPENTIN 300 MG CAP ONE (12:03)
--- NOTE | 2022-02-25 12:09 | RAD REPORT ---
EXAM DESCRIPTION: CT - Head Brain Wo Cont - 02/25/2022 12:02 pm CLINICAL HISTORY: Numbness COMPARISON: None TECHNIQUE: Computed axial tomography of the head was obtained. IV contrast was not requested. All CT scans are performed using dose optimization technique as appropriate and may include automated exposure control or mA/KV adjustment according to patient size. FINDINGS: An intracranial bleed is not seen . The ventricles are normal in caliber. No extra-axial fluid collection is noted. Basal ganglia calcifications probably physiologic. No significant hypodensity within the brain is see n Fluid within the sinuses/ mastoids is not seen. IMPRESSION: No acute intracranial abnormality is seen. If patient's symptoms persist MRI of the bra in would be recommended.
--- NOTE | 2022-02-25 12:18 | RAD REPORT ---
EXAM DESCRIPTION: Shane Single View02/25/2022 12:07 pm CLINICAL HISTORY: Numbness COMPARISON: November 2021 FINDINGS: Small nodular opacities overlying each lung base probably nipple shadow. Patient's previously described small pulmonary nodules not clearly seen on this exam. Refer to CT [facility] st report for recommendation Heart is normal size
--- NOTE | 2022-02-25 13:07 | RAD REPORT ---
EXAM DESCRIPTION: US - UPPER EXTREMITY VENOUS UNILATE - 02/25/2022 12:44 pm COMPARISON: None. TECHNIQUE: Real-time sonographic evaluation of the right upper extremity deep venous system was perf ormed. FINDINGS: Normal compressibility, flow augmentation, phasic flow and spontaneous flow is identified in the right upper extremity deep venous system. No intraluminal filling defects seen. IMPRESSION: No venous thrombosis in the right upper extremity.
[2022-02-25 13:16] LABS: Protime INR 1.06
[2022-02-25 13:18] LABS: Absolute Lymphocytes (CBC) 1.7 K/uL (0.7-4.9); Hematocrit 40.2 % (36.0-45.0); Lymphocytes % 18.8 % (15.3-44.8); MCV 90.6 fL (80-100); MPV 7.7 fL (7.6-11.3); RBC Red Blood Cell Count 4.44 M/uL (3.86-4.86)
[2022-02-25 13:23] LABS: Potassium 3.6 mmol/L (3.5-5.1)
[2022-02-25] MEDS ORDERED: ASPIRIN 325 MG TAB ONE (13:42)
--- NOTE | 2022-02-25 14:00 | ER ---
Nurse's Notes [facility] Name: Mary Ann aCrdoza Age: 61 yrs Sex: Female : 1960 Arrival Date: 02/25/2022 Time: 11:34 Bed 8 Private MD: Diagnosis: Paresthesia of skin Presentation: 02/25 11:40 Chief complaint: Patient states: Pt reports waking up at 0300 this morning - right hand ld1 felt numb. Pt went back to sleep, woke up at 0600 - right arm was numb. Coronavirus screen: At this time, the client does not indicate any symptoms associated with coronavirus-19. Ebola Screen: No symptoms or risks identified at this time. Initial Sepsis Screen: Does the patient meet any 2 criteria? No. Patient's initial sepsis screen is negative. Does the patient have a suspected source of infection? No. Patient's initial sepsis screen is negative. Risk Assessment: Do you want to hurt yourself or someone else? Patient reports no desire to harm self or others. Onset of symptoms was February 25, 2022. 11:40 Method Of Arrival: Ambulatory ld1 11:40 Acuity: VICENTA 3 ld1 Triage Assessment: 11:41 General: Appears in no apparent distress. comfortable, Behavior is calm, cooperative, ld1 appropriate for age. 11:42 Pain: Denies pain. EENT: No signs and/or symptoms were reported regarding the EENT ld1 system. Neuro: Level of Consciousness is awake, alert, obeys commands, Oriented to person, place, time, situation, Barge Master are equal bilaterally Gait is steady, Speech is normal, Facial symmetry appears normal, Reports numbness in right hand and right arm. Cardiovascular: Capillary refill < 3 seconds Patient's skin is warm and dry. Respiratory: Airway is patent Respiratory effort is even, unlabored. GI: Abdomen is flat, non-distended. : No signs and/or symptoms were reported regarding the genitourinary system. Derm: No signs and/or symptoms reported regarding the dermatologic system. Musculoskeletal: No signs and/or symptoms reported regarding the musculoskeletal system. Historical: - Allergies: 11:41 No Known Allergies; ld1 - Home Meds: 11:41 lisinopril 2.5 mg Oral tab 1 tab once daily [Active]; ld1 - PMHx: 11:41 Hypertensive disorder; ld1 - Immunization history:: Adult Immunizations up to date, Client reports receiving the 2nd dose of the Covid vaccine. - Social history:: Smoking status: Patient reports the use of cigarette tobacco products, smokes one pack cigarettes per day. Patient uses alcohol, on a daily basis. - Family history:: not pertinent. Screenin:54 Abuse screen: Denies threats or abuse. Denies injuries from another. Nutritional kc6 screening: No deficits noted. Tuberculosis screening: No symptoms or risk factors identified. Fall Risk No fall in past 12 months (0 pts). No secondary diagnosis (0 pts). No IV (0 pts). Ambulatory Aid- None/Bed Rest/Nurse Assist (0 pts). Gait- Normal/Bed Rest/Wheelchair (0 pts) Mental Status- Oriented to own ability (0 pts). Total Segal Fall Scale indicates No Risk (0-24 pts). Assessment: 11:51 General: Appears in no apparent distress. comfortable, Behavior is calm, cooperative, kc6 appropriate for age. Pain: Denies pain. Neuro: Paredes Agitation-Sedation Scale (RASS): 0 - Alert and Calm Level of Consciousness is awake, alert, obeys commands, Oriented to person, place, time, situation, Appropriate for age Barge Master are weak on right Moves all extremities. Full function Weakness in right hand(s) arm(s) Gait is steady, Speech is normal, Facial symmetry appears normal, Pupils are PERRLA, Tingling in right arm and right hand Numbness in right arm and right hand. Cardiovascular: Heart tones S1 S2 present Capillary refill < 3 seconds. Respiratory: Airway is patent Trachea midline Respiratory effort is even, unlabored, Respiratory pattern is regular, symmetrical, Breath sounds are clear bilaterally. GI: No signs and/or symptoms were reported involving the gastrointestinal system. : No signs and/or symptoms were reported regarding the genitourinary system. EENT: No signs and/or symptoms were reported regarding the EENT system. Derm: No signs and/or symptoms reported regarding the dermatologic system. Skin is intact, Skin is pink, warm \T\ dry. Musculoskeletal: No signs and/or symptoms reported regarding the musculoskeletal system. Circulation, motion, and sensation intact. Capillary refill < 3 seconds, Range of motion: intact in all extremities. 12:51 Reassessment: Patient appears in no apparent distress at this time. No changes from kc6 previously documented assessment. Patient and/or family updated on plan of care and expected duration. Pain level reassessed. Patient is alert, oriented x 3, equal unlabored respirations, skin warm/dry/pink. Patient denies pain at this time. 13:51 Reassessment: Patient appears in no apparent distress at this time. No changes from kc6 previously documented assessment. Patient and/or family updated on plan of care and expected duration. Pain level reassessed. Patient is alert, oriented x 3, equal unlabored respirations, skin warm/dry/pink. Patient denies pain at this time. 14:51 Reassessment: Patient appears in no apparent distress at this time. No changes from kc6 previously documented assessment. Patient and/or family updated on plan of care and expected duration. Pain level reassessed. Patient is alert, oriented x 3, equal unlabored respirations, skin warm/dry/pink. Patient denies pain at this time. 15:16 Reassessment: please see [facility] for further charting. kc6 Vital Signs: 11:40 BP 172 / 89; Pulse 97; Resp 18; Temp 98.4(O); Pulse Ox 99% on R/A; Weight 68.04 kg; ld1 Height 5 ft. 8 in. (172.72 cm); Pain 0/10; 11:53 BP 153 / 88; Pulse 86; Resp 14 S; Pulse Ox 98% on R/A; Pain 0/10; kc6 12:56 BP 172 / 91; Pulse 54; Resp 18 S; Pulse Ox 95% on R/A; Pain 0/10; kc6 13:56 BP 143 / 85; Pulse 88; Resp 19 S; Pulse Ox 100% on R/A; Pain 0/10; kc6 14:56 BP 145 / 79; Pulse 82; Resp 18 S; Pulse Ox 100% on R/A; Pain 0/10; kc6 11:40 Body Mass Index 22.81 (68.04 kg, 172.72 cm) ld1 ED Course: 11:34 Patient arrived in ED. as 11:39 Serena Guerra RN is Primary Nurse. kc6 11:40 Taco Larson MD is Attending Physician. rt 11:41 Triage completed. ld1 11:42 Arm band placed on right wrist. ld1 12:04 Head Brain Wo Cont CT In Process Unspecified. EDMS 12:08 Stroke CXR 1 View In Process Unspecified. EDMS 12:46 UPPER EXTREMITY VENOUS UNILATE In Process Unspecified. EDMS 12:55 Basic Metabolic Panel Sent. kc6 12:55 CBC with Diff Sent. kc6 12:55 High Sensitivity Troponin Sent. kc6 12:55 Magnesium Sent. kc6 12:55 Protime (+inr) Sent. kc6 12:55 Ptt, Activated Sent. kc6 12:55 Inserted saline lock: 20 gauge in left antecubital area, using aseptic technique. Blood kc6 collected. 13:50 COVID-19 SARS RT PCR Sent. kc6 13:59 Valdo Tamez MD is Hospitalizing Provider. rt 15:19 No provider procedures requiring assistance completed. Patient admitted, IV remains in kc6 place. 15:20 Patient has correct armband on for positive identification. Placed in gown. Bed in low kc6 position. Call light in reach. Side rails up X 1. Adult w/ patient. Administered Medications: 12:55 Drug: Gabapentin 300 mg Route: PO; kc6 13:55 Follow up: Response: No adverse reaction kc6 13:50 Drug: Aspirin 325 mg Route: PO; kc6 14:50 Follow up: Response: No adverse reaction kc6 Medication: 15:20 VIS not applicable for this client. kc6 Outcome: 14:00 Decision to Hospitalize by Provider. rt 15:19 Admitted to Med/surg accompanied by tech, via wheelchair, with chart, Report called to shanice Goldberg RN 15:19 Condition: stable 15:19 Instructed on the need for admit. 17:27 Patient left the ED. kc6 Signatures: Dispatcher [employer] Traci Butts Lauren, RN RN ld1 Serena Guerra RN RN kc6 Taco Larson MD MD rt Corrections: (The following items were deleted from the chart) 17:00 15:19 Admitted to Med/surg accompanied by tech, via wheelchair, with chart, shanice prasad
--- NOTE | 2022-02-25 14:00 | EDPHYS ---
Physician Documentation [facility] Name: Mary Ann Cardoza Age: 61 yrs Sex: Female : 1960 Arrival Date: 02/25/2022 Time: 11:34 Bed 8 Private MD: ED Physician Taco Larson HPI: 02/25 12:22 This 61 yrs old Female presents to ER via Ambulatory with complaints of Numbness Of rt Arm, Hand Swelling. 12:22 The complaints affect the palmar aspect of right forearm. Context: The problem was rt sustained at home. Onset: The symptoms/episode began/occurred at 02:00. Treatment prior to arrival includes: no previous treatment. Modifying factors: The symptoms are alleviated by nothing. the symptoms are aggravated by nothing. Associated signs and symptoms: The patient has no apparent associated signs or symptoms. Severity of symptoms: At their worst the symptoms were moderate. The patient has not experienced similar symptoms in the past. Presents to the ED with a right arm numbness, reported right arm swelling that started about 2 AM, waking him from sleep. The patient denies any weakness but states that she is uncoordinated of that right arm. The patient denies injury. Patient denies other numbness, weakness. Symptoms are moderate in severity, no other aggravating alleviating factors.. Historical: - Allergies: 11:41 No Known Allergies; ld1 - Home Meds: 11:41 lisinopril 2.5 mg Oral tab 1 tab once daily [Active]; ld1 - PMHx: 11:41 Hypertensive disorder; ld1 - Immunization history:: Adult Immunizations up to date, Client reports receiving the 2nd dose of the Covid vaccine. - Social history:: Smoking status: Patient reports the use of cigarette tobacco products, smokes one pack cigarettes per day. Patient uses alcohol, on a daily basis. - Family history:: not pertinent. ROS: 12:22 Constitutional: Negative for fever, chills, and weight loss, Eyes: Negative for injury, rt pain, redness, and discharge, ENT: Negative for injury, pain, and discharge, Neck: Negative for injury, pain, and swelling, Cardiovascular: Negative for chest pain, palpitations, and edema, Respiratory: Negative for shortness of breath, cough, wheezing, and pleuritic chest pain, Abdomen/GI: Negative for abdominal pain, nausea, vomiting, diarrhea, and constipation, Back: Negative for injury and pain, Skin: Negative for injury, rash, and discoloration, Psych: Negative for depression, anxiety, suicide ideation, homicidal ideation, and hallucinations. 12:22 MS/extremity: Positive for swelling, Negative for injury or acute deformity. 12:22 Neuro: Positive for numbness, Negative for altered mental status, dizziness, weakness. Exam: 12:22 Constitutional: This is a well developed, well nourished patient who is awake, alert, rt and in no acute distress. Head/Face: Normocephalic, atraumatic. Eyes: Pupils equal round and reactive to light, extra-ocular motions intact. Lids and lashes normal. Conjunctiva and sclera are non-icteric and not injected. Cornea within normal limits. Periorbital areas with no swelling, redness, or edema. ENT: Nares patent. No nasal discharge, no septal abnormalities noted. Tympanic membranes are normal and external auditory canals are clear. Oropharynx with no redness, swelling, or masses, exudates, or evidence of obstruction, uvula midline. Mucous membranes moist. Neck: Trachea midline, no thyromegaly or masses palpated, and no cervical lymphadenopathy. Supple, full range of motion without nuchal rigidity, or vertebral point tenderness. No Meningismus. Chest/axilla: Normal chest wall appearance and motion. Nontender with no deformity. No lesions are appreciated. Cardiovascular: Regular rate and rhythm with a normal S1 and S2. No gallops, murmurs, or rubs. Normal PMI, no JVD. No pulse deficits. Respiratory: Lungs have equal breath sounds bilaterally, clear to auscultation and percussion. No rales, rhonchi or wheezes noted. No increased work of breathing, no retractions or nasal flaring. Abdomen/GI: Soft, non-tender, with normal bowel sounds. No distension or tympany. No guarding or rebound. No evidence of tenderness throughout. Back: No spinal tenderness. No costovertebral tenderness. Full range of motion. Skin: Warm, dry with normal turgor. Normal color with no rashes, no lesions, and no evidence of cellulitis. Psych: Awake, alert, with orientation to person, place and time. Behavior, mood, and affect are within normal limits. 12:22 Musculoskeletal/extremity: Minimal swelling to the right upper extremity, pulses are intact.. 12:22 Neuro: Decree sensation noted to the right forearm, sparing the fingertips, upper extremity. Patient does seem to be uncoordinated of that hand, appears to have good strength in that hand. Strength and sensation otherwise intact in upper and lower extremities. There are no cranial nerve deficits, the visual field deficits, speech is normal.. 12:56 ECG was reviewed by the Attending Physician. rt Vital Signs: 11:40 BP 172 / 89; Pulse 97; Resp 18; Temp 98.4(O); Pulse Ox 99% on R/A; Weight 68.04 kg; ld1 Height 5 ft. 8 in. (172.72 cm); Pain 0/10; 11:53 BP 153 / 88; Pulse 86; Resp 14 S; Pulse Ox 98% on R/A; Pain 0/10; kc6 12:56 BP 172 / 91; Pulse 54; Resp 18 S; Pulse Ox 95% on R/A; Pain 0/10; kc6 13:56 BP 143 / 85; Pulse 88; Resp 19 S; Pulse Ox 100% on R/A; Pain 0/10; kc6 14:56 BP 145 / 79; Pulse 82; Resp 18 S; Pulse Ox 100% on R/A; Pain 0/10; kc6 11:40 Body Mass Index 22.81 (68.04 kg, 172.72 cm) ld1 MDM: 11:41 Patient medically screened. rt 14:12 Differential diagnosis: CVA, TIA, paresthesia. Data reviewed: vital signs, nurses rt notes, lab test result(s), EKG, radiologic studies. ED course: Patient presents to the ED with a numbness, incoordination with weakness of the right upper extremity, her dominant extremity. The patient's symptoms may very well be due to a paresthesia or neuropathy, however, cannot rule out an acute CVA. She is outside of the time window for tPA, therefore, not considered. Do not suspect large vessel occlusion. Patient will be admitted for stroke rule out.. 02/25 11:49 Order name: Basic Metabolic Panel; Complete Time: 13:26 rt 02/25 11:49 Order name: CBC with Diff; Complete Time: 13:26 rt 02/25 11:49 Order name: High Sensitivity Troponin; Complete Time: 13:26 rt 02/25 11:49 Order name: Magnesium; Complete Time: 13:26 rt 02/25 11:49 Order name: Protime (+inr); Complete Time: 13:26 rt 02/25 11:49 Order name: Ptt, Activated; Complete Time: 13:26 rt 02/25 13:36 Order name: COVID-19 SARS RT PCR; Complete Time: 15:35 rt 02/25 15:17 Order name: Urinalysis; Complete Time: 15:35 EDMS 02/25 15:19 Order name: Phosphorus; Complete Time: 15:35 EDMS 02/25 15:19 Order name: NT PRO-BNP; Complete Time: 15:35 EDMS 02/25 15:19 Order name: Lipid Profile; Complete Time: 15:35 EDMS 02/25 15:19 Order name: T4 Free; Complete Time: 15:35 EDMS 02/25 15:19 Order name: Magnesium; Complete Time: 15:35 EDMS 02/25 15:19 Order name: Thyroid Stimulating Hormone; Complete Time: 15:35 EDMS 02/25 11:49 Order name: Stroke CXR 1 View; Complete Time: 12:35 rt 02/25 11:49 Order name: EKG; Complete Time: 11:50 rt 02/25 11:49 Order name: Accucheck; Complete Time: 13:37 rt 02/25 11:49 Order name: Cardiac monitoring; Complete Time: 11:50 rt 02/25 11:49 Order name: EKG - Nurse/Tech; Complete Time: 12:55 rt 02/25 11:49 Order name: IV Saline Lock; Complete Time: 12:55 rt 02/25 11:49 Order name: Labs collected and sent; Complete Time: 12:55 rt 02/25 11:49 Order name: NPO; Complete Time: 11:50 rt 02/25 11:49 Order name: O2 Per Protocol; Complete Time: 11:50 rt 02/25 11:49 Order name: O2 Sat Monitoring; Complete Time: 11:50 rt 02/25 11:50 Order name: Head Brain Wo Cont CT; Complete Time: 12:35 rt 02/25 12:46 Order name: UPPER EXTREMITY VENOUS UNILATE; Complete Time: 13:15 EDMS 02/25 15:58 Order name: Hemoglobin A1c; Complete Time: 16:58 EDMS 02/25 11:49 Order name: Stroke Swallow Screen; Complete Time: 12:55 rt EC:56 Rate is 84 beats/min. Rhythm is regular, Normal Sinus Rhythm with No ectopy. QRS [place] rt is Normal. MD interval is normal. QRS interval is normal. QT interval is normal. No Q waves. T waves are Normal. No ST changes noted. Clinical impression: Normal ECG. Interpreted by me. Administered Medications: 12:55 Drug: Gabapentin 300 mg Route: PO; kc6 13:55 Follow up: Response: No adverse reaction kc6 13:50 Drug: Aspirin 325 mg Route: PO; kc6 14:50 Follow up: Response: No adverse reaction kc6 Disposition Summary: 02/25/22 14:00 Hospitalization Ordered Hospitalization Status: Observation rt Provider: Valdo Tamez rt Location: Telemetry/MedSurg (observation) rt Condition: Stable rt Problem: new rt Symptoms: are unchanged rt Bed/Room Type: Standard rt Room Assignment: [facility](02/25/22 16:30) Diagnosis - Paresthesia of skin rt Forms: - Medication Reconciliation Form rt - SBAR form rt Signatures: Dispatcher [employer] EDMichelle Liu RN RN dw Eli Ruano RN RN ld1 Serena Guerra RN RN kc6 Taco Larson MD MD rt Corrections: (The following items were deleted from the chart) 12:46 12:01 Extremity Venous [employer]+[email or web address] ordered. EDPR EDMS 16:30 14:00 rt dw
[2022-02-25] MEDS ORDERED: ACETAMINOPHEN 325 MG TABLET PO PRN (14:23)
[2022-02-25] MEDS ORDERED: HYDROCODONE/APAP 5/325 MG TAB PO PRN (14:23)
[2022-02-25] MEDS ORDERED: ONDANSETRON 4 MG/2 ML VIAL IV PRN (14:25)
--- NOTE | 2022-02-25 14:30 | P.HP ---
Certification for Inpatient Patient admitted to: Observation With expected LOS: <2 Midnights Patient will require the following post-hospital care: None Practitioner: I am a practitioner with admitting privileges, knowledge of patient current condition, hospital course, and medical plan of care. Services: Services provided to patient in accordance with Admission requirements found in Title 42 Section 412.3 of the Code of Federal Regulations Patient History Date of Service: 02/25/22 Reason for admission: RUE weakness\Numbness, right hand drop\swelling History of Present Illness: Patient is a 61-year-old female with a past medical history significant for hypertension who presents with complaint of right arm numbness\weakness and right hand swelling\weakness onset this morning around 2 AM. Patient also complains of right wrist \fingers weakness\right wrist drop and limited range of motion. Patient denies any other signs and symptoms. Symptoms are aggravated or relieved by nothing. Patient decided to present to the hospital due to worsening symptoms. Allergies No Known Allergies Allergy (Unverified 02/25/22 14:39) Home Medications: Lisinopril [Zestril] 1 tab PO DAILY 02/25/22 - Past Medical/Surgical History -: HTN -: Nicotine dependence Past Surgical History: Reviewed- Non-Contributory - Family History Family History: Reviewed- Non-Contributory - Social History Smoking Status: Heavy Tobacco smoker (>10 cigarettes/day) Counseled patient to stop smoking for: less than 10 minutes Smoking therapy provided: Yes Patient receptive to therapy: Yes Alcohol use: Yes CD- Drugs: No Caffeine use: Yes Place of Residence: Home Review of Systems General: Unremarkable Eyes: Unremarkable ENT: Unremarkable Respiratory: Unremarkable Cardiovascular: Unremarkable Gastrointestinal: Unremarkable Genitourinary: Unremarkable Musculoskeletal: Other (right wrist\fingers weakness\right wrist drop, RUE weakness ) Integumentary: Unremarkable Neurological: Weakness, Other (right wrist \fingers weakness\right wrist drop , RUE weakness\Numbness ) Lymphatics: Unremarkable Physical Examination - Physical Exam General: Alert, In no apparent distress, Oriented x3, Cooperative HEENT: Atraumatic, PERRLA, Mucous membr. moist/pink, EOMI, Sclerae nonicteric Neck: Supple, 2+ carotid pulse no bruit, No LAD, Without JVD or thyroid abnormality Respiratory: Clear to auscultation bilaterally, Normal air movement Cardiovascular: Regular rate/rhythm, Normal S1 S2 Capillary refill: <2 Seconds Gastrointestinal: Normal bowel sounds, Non-distended, No tenderness Musculoskeletal: Swelling, Other (Right hand swelling ) Integumentary: No rashes, No breakdown, No significant lesion, No erythema, No warmth Neurological: Normal gait, Normal speech, Normal affect, Abnormal strength (On right hand ), Abnormal sensation Lymphatics: No axilla or inguinal lymphadenopathy - Studies Laboratory Data (last 24 hrs) 02/25/22 12:48: PT 11.7, INR 1.06, APTT 31.6 02/25/22 12:48: WBC 9.10, Hgb 13.4, Hct 40.2, Plt Count 345 02/25/22 12:48: Sodium 141, Potassium 3.6, BUN 14, Creatinine 0.91, Glucose 97, Magnesium 2.0 Assessment and Plan - Plan --Right upper extremity paresthesias\weakness\right wrist drop. CT head unremarkable for any acute intracranial abnormality. MRI brain pending to rule out CVA. Right wrist drop could likely be due to radial nerve palsy. Neurology consulted. If no CVA patient will need an EMG\nerve construction studies outpatient. Neurology consulted. Occupational therapy consulted. Continue aspirin, statin and folic acid. We will await further recommendation from neurologist. -- Hypertension. We will allow for permissive hypertension until MRI brain rules out CVA. Labetalol as needed for SBP greater than 180 mmHg. --Skin paresthesias. Patient placed on gabapentin. --CKD 2. Baseline functions unknown. We will continue to monitor renal functions. --Nicotine dependence. Patient counseled on tobacco cessation. Patient placed on nicotine patch. --DVT prophylaxis with Lovenox subQ. Discharge Plan: Home Plan to discharge in: 48 Hours - Advance Directives Does patient have a Living Will: No Does patient have a Durable POA for Healthcare: No - Code Status/Comfort Care Code Status Assessed: Yes Physician Review: Patient Assessed, Agree with Above Assessment and Plan Critical Care: No
[2022-02-25 14:51] VITALS: BMI 22.6
[2022-02-25 15:17] LABS: Specific Gravity 1.005 (1.005-1.030); Urine Bilirubin NEGATIVE (Negative); Urine Blood Negative (Negative); Urine Clarity Clear (Clear); Urine Color Colorless (Yellow); Urine Glucose NEGATIVE (Negative); Urine Protein NEGATIVE (Negative); Urine Urobilinogen Normal (Normal); Urine pH 7.5 (5.0-7.0)
[2022-02-25 15:19] LABS: Phosphorus 2.9 mg/dL (2.5-4.9); Thyroid Stimulating Hormone 1.1 uIU/mL (0.360-3.740)
[2022-02-25] MEDS ORDERED: LABETALOL 20 MG/4ML SYRINGE IV PRN (18:58)
[2022-02-25] MEDS: FOLIC ACID 1 MG TABLET PO SCH (20:39)
[2022-02-25] MEDS: GABAPENTIN 100 MG CAP PO SCH (20:39)
--- NOTE | 2022-02-25 20:50 | RAD REPORT ---
EXAM DESCRIPTION: MRI - Brain Wo Cont - 02/25/2022 8:29 pm CLINICAL HISTORY: R O CVA COMPARISON: No comparisons TECHNIQUE: Sagittal T1-weighted images were obtained along with PD/heavily T2-weighted and T2-FLAIR images. Axial DWI and ADC mapping sequences were also obtained along with coronal heavily T2-weighted images were obtained. FINDINGS: No intracranial hemorrhage, mass or acute infarction. There is no edema or shift of midlin e structures. No extra-axial fluid collections. Signal voids are seen as a normal finding in the sandy r intracranial vessels. No significant white matter disease. Mastoid air cells and paranasal sinuses are clear. IMPRESSION: Unremarkable noncontrast brain MRI. No evidence of acute infarct.
[2022-02-25] MEDS ORDERED: ATORVASTATIN 40 MG TAB PO SCH (21:00)
[2022-02-26 04:51] LABS: Absolute Lymphocytes (CBC) 2.5 K/uL (0.7-4.9); Hematocrit 36.3 % (36.0-45.0); Lymphocytes % 25.7 % (15.3-44.8); MCV 91.2 fL (80-100); MPV 7.8 fL (7.6-11.3); RBC Red Blood Cell Count 3.98 M/uL (3.86-4.86)
[2022-02-26 05:43] LABS: Potassium 4.5 mmol/L (3.5-5.1)
[2022-02-26] MEDS: FOLIC ACID 1 MG TABLET PO SCH (08:34)
[2022-02-26] MEDS: GABAPENTIN 100 MG CAP PO SCH ×2 (08:34→13:10)
[2022-02-26] MEDS ORDERED: ENOXAPARIN 40 MG/0.4 ML SQ SCH (09:00)
[2022-02-26] MEDS ORDERED: ASPIRIN EC 81 MG TAB PO SCH (09:00)
[2022-02-26] MEDS ORDERED: NICOTINE 21 MG/PAT TD SCH (09:00)
[2022-02-26 10:17] VITALS: O2SAT 99
--- NOTE | 2022-02-26 11:37 | EKG ---
Test Date: 2022-02-25 Test Time: 12:48:53 Reed Man: RAFFI MEASUREMENT RESULTS: Intervals: Rate: 84 AR: 140 QRSD: 88 QT: 376 QTc: 444 [place]: P: 77 AR: 140 QRS: 7 T: 48 INTERPRETIVE STATEMENTS: Normal sinus rhythm Right atrial enlargement Borderline ECG Compared to ECG 06/10/2018 15:07:54 Atrial abnormality now present Electronically Signed On 02-26-22 11:34:38 COOK PIE by Abhinav Snyder
[2022-02-26 12:38] VITALS: BP 141/70; TEMP 97.7
--- NOTE | 2022-02-26 17:24 | P.DS ---
Admission Date: 02/25/22 Discharge Date: 02/26/22 Disposition: ROUTINE DISCHARGE Discharge Condition: GOOD Reason for Admission: RUE weakness\Numbness, right hand drop\swelling Consultations: Neurology - Dr. Smith Brief History of Present Illness: 61-year-old female with a past medical history significant for hypertension who presents with complaint of right arm numbness\weakness and right hand swelli ng\weakness onset this morning around 2 AM. Patient also complains of right wrist \fingers weakness\right wrist drop and limited range of motion. Patient denies any other signs and symptoms. Symptoms are aggravated or relieved by nothing. Patient decided to present to the hospital due to worsening symptoms. Hospital Course: Problem List Right radial nerve neuropathy HTN Nicotine dependence Patient presented with sudden onset of right wrist weakness, tingling. CT and MRI brain were negative. Physical exam findings most consistent with a radial neuropathy. Dr. Smith was consulted and reviewed the case over the phone. Recommended physical therapy and avoidance of triggers - no laying on right side, avoidance of heavy use of right arm for next ~2 weeks. Recommend EMG/nerve conduction study Dr. Quinton Gonzales is one possibility, to call the office to schedule appointment. Follow up with Neurology in ~1 month. Vital Signs/Physical Exam: Temp Pulse Resp BP Pulse Ox 97.7 F 69 16 141/70 H 96 02/26/22 12:00 02/26/22 12:00 02/26/22 12:00 02/26/22 12:00 02/26/22 12:00 General: Alert, In no apparent distress, Oriented x3 HEENT: Mucous membr. moist/pink, Sclerae nonicteric Respiratory: Clear to auscultation bilaterally, Normal air movement Cardiovascular: No edema, Regular rate/rhythm Gastrointestinal: Soft and benign, No tenderness Neurological: Other (RUE: 3/5 wrist flexion, 2-3/5 dorsiflexion, ~5/5 cyber intelligence analyst strength, 3/5 digit extension, slight decreased sensation on dorsum of thumb. 5/5 deltoid) Laboratory Data at Discharge: WBC 9.60 K/uL (4.3-10.9) 02/26/22 04:14 Hgb 12.2 g/dL (12.0-15.0) D 02/26/22 04:14 Hct 36.3 % (36.0-45.0) 02/26/22 04:14 Plt Count 306 K/uL (152-406) 02/26/22 04:14 PT 11.7 SECONDS (9.5-12.5) 02/25/22 12:48 INR 1.06 02/25/22 12:48 APTT 31.6 SECONDS (24.3-36.9) 02/25/22 12:48 Sodium 143 mmol/L (136-145) 02/26/22 04:14 Potassium 4.5 mmol/L (3.5-5.1) D 02/26/22 04:14 BUN 15 mg/dL (7-18) 02/26/22 04:14 Creatinine 0.85 mg/dL (0.55-1.3) 02/26/22 04:14 Glucose 90 mg/dL (74-106) 02/26/22 04:14 Phosphorus 2.9 mg/dL (2.5-4.9) 02/25/22 14:25 Magnesium 2.0 mg/dL (1.8-2.4) 02/25/22 14:25 Triglycerides 113 mg/dL (<150) 02/25/22 14:25 Cholesterol 189 mg/dL (<200) 02/25/22 14:25 HDL Cholesterol 65 mg/dL (40-60) H 02/25/22 14:25 Cholesterol/HDL Ratio 2.91 02/25/22 14:25 Home Medications: Lisinopril [Zestril] 1 tab PO DAILY 02/25/22 Physician Discharge Instructions: Patient presented with sudden onset of right wrist weakness, tingling. CT and MRI brain were negative. Physical exam findings most consistent with a radial neuropathy. Dr. Smith was consulted and reviewed the case over the phone. Recommended physical therapy and avoidance of triggers - no laying on right side, avoidance of heavy use of right arm for next ~2 weeks. Recommend EMG/nerve conduction study Dr. Quinton Gonzales is one possibility, to call the office to schedule appointment. Follow up with Neurology in ~1 month. Followup: NICOLÁS ANDRADE [Primary Care Provider] - (Follow up with in one to two weeks.) Time spent managing pt's care (in minutes): 45
== END 2022-02-26 13:22 | disposition home or self-care (01) ==
LOC: ER 11:33 → ERHOLD 14:20 → 2ND 17:00
PROVIDERS: ADMIT Hospitalist; ATTEND Hospitalist
DX: G62.9 Polyneuropathy, unspecified (principal); R20.2 Paresthesia of skin; I10 Essential (primary) hypertension; F17.220 Nicotine dependence, chewing tobacco, uncomplicated; N18.2 Chronic kidney disease, stage 2 (mild); Z20.822 Contact with and (suspected) exposure to COVID-19
CPT/HCPCS: 93005; 85025 ×2; 80048 ×2; 36415 ×2; 83735 ×2; 84100; 85610; 80061; 85730; 84443; 81003; 83036; 84484; 84439; 83880; 70450; 71045; 93971; 70551; 97161; 97165; 97530 ×2; 99285; U0003; J1650; G0378 ×3